=== PATIENT | female | born 1935 | race Caucasian/White ===

== ENCOUNTER 2016-12-11 21:11 | Observation (INO) | payer MEDICARE, BC ==
[2016-12-11] MEDS ORDERED: NS 0.9% 1000 ML* 1,000 ML IV ONE (22:16)
[2016-12-11 22:35] LABS: Hematocrit 37 % (35-47); Hemoglobin 12.3 g/dl (12.0-16.0); Mean Corpuscular HGB Conc 34 g/dl (31-36); Mean Corpuscular Hemoglobin 31 pg (27-31); Mean Corpuscular Volume 92 fL (80-97); Mean Platelet Volume 8 um3 (7.4-10.4); Red Cell Distribution Width 14 % (10.5-15); White Blood Count 9.4 10^3/ul (3.5-10.8)
[2016-12-11 22:38] LABS: Add Diff/Slide Review? Slide Review Added; Comments Flag Yes
--- NOTE | 2016-12-11 22:38 | ED ---
Mali Tejada Edward, scribed for Hai Bangura MD on 12/11/16 at 2211 . Altered Mental Status - HPI Summary HPI Summary: 81 y/o female presents to ED c/o confusion starting last night and has gotten progressively worse this morning and through the day. Pt has never had these sx before. Pt was also dx with UTI yesterday at [facility], started abx today. Associated sx: loss of memory, burning with urination (resolved today). PMHx UTIs. Most information was provided by the patient's son in law. - History Of Current Complaint Chief Complaint: EDAltMentalStatus Stated Complaint: DX UTI/CONFUSION,DIZZINESS Time Seen by Provider: 12/11/16 22:09 Hx Obtained From: Patient Onset/Duration: Gradually Timing: Lasting Hours - Starting last night Severity Initially: Mild Severity Currently: Moderate Character: Confusion - Allergies/Home Medications Allergies/Adverse Reactions: Allergies Allergy/AdvReac Type Severity Reaction Status Date / Time No Known Allergies Allergy Verified 12/17/14 13:16 Home Medications: Home Medications Esomeprazole Magnesium [Nexium 24Hr] 20 mg PO DAILY 12/12/16 [History Confirmed 12/12/16] Nitrofurantoin Monohyd Macro [Macrobid] 100 mg PO BID 12/12/16 [History Confirmed 12/12/16] PMH/Surg Hx/FS Hx/Imm Hx Previously Healthy: No Endocrine/Hematology History: Reports: Hx Thyroid Disease, Hx Anemia - X1 Denies: Hx Diabetes Cardiovascular History: Reports: Hx Hypercholesterolemia, Hx Hypertension Respiratory History: Reports: Hx Lung Cancer - With chemo, Hx Pneumonia, Other Respiratory Problems/Disorders - LUNG CA, LOWER LOBES OF BOTH LUNGS REMOVED Denies: Hx Asthma, Hx Chronic Obstructive Pulmonary Disease (COPD) GI History: Reports: Hx Gastroesophageal Reflux Disease Denies: Hx Gastrointestinal Bleed, Hx Hiatal Hernia, Hx Ulcer Musculoskeletal History: Reports: Hx Arthritis Sensory History: Reports: Hx Cataracts - L surgery, Hx Contacts or Glasses, Hx Eye Injury, Hx Vision Problem - Can't see out of R eye surgery causes retinal detatchment Opthamlomology History: Reports: Hx Cataracts - L surgery, Hx Contacts or Glasses, Hx Eye Injury, Hx Vision Problem - Can't see out of R eye surgery causes retinal detatchment Psychiatric History: Denies: Hx Anxiety, Hx Depression - Cancer History Cancer Type, Location and Year: Lung Cancer Hx Chemotherapy: Yes - Surgical History Surgery Procedure, Year, and Place: BILATERAL LOWER LUNG LOBECTOMY. KNEE - Immunization History Date of Tetanus Vaccine: unknown Infectious Disease History: No Infectious Disease History: Denies: Hx Human Immunodeficiency Virus (HIV), Traveled Outside the [place] in Last 30 Days - Family History Known Family History: Positive: Other - Mother - stroke - Social History Alcohol Use: Occasionally Alcohol Amount: smells of alcohol Substance Use Type: Reports: None Smoking Status (MU): Former Smoker Type: Cigarettes Review of Systems Constitutional: Negative Eyes: Negative ENT: Negative Cardiovascular: Negative Respiratory: Negative Gastrointestinal: Negative Positive: burning - resolved today Musculoskeletal: Negative Skin: Negative Neurological: Other - Confusion Psychological: Normal All Other Systems Reviewed And Are Negative: Yes Physical Exam Triage Information Reviewed: Yes Vital Signs On Initial Exam: Initial Vitals Temp Pulse Resp BP Pulse Ox 99.2 F 100 16 144/63 98 12/11/16 21:27 12/11/16 21:27 12/11/16 21:27 12/11/16 21:27 12/11/16 21:27 Vital Signs Reviewed: Yes Appearance: Positive: No Pain Distress - frail, Thin Skin: Positive: Warm Head/Face: Positive: Normal Head/Face Inspection Eyes: Positive: EOMI, DWAYNE ENT: Positive: Hearing grossly normal Neck: Positive: Supple, Nontender Respiratory/Lung Sounds: Positive: Clear to Auscultation Cardiovascular: Positive: RRR Abdomen Description: Positive: Nontender, Soft Bowel Sounds: Positive: Present Musculoskeletal: Positive: Strength/ROM Intact Neurological: Positive: Sensory/Motor Intact Diagnostics - Vital Signs Vital Signs Temp Pulse Resp BP Pulse Ox 12/11/16 21:27 99.2 F 100 16 144/63 98 - Laboratory Result Diagrams: 12/11/16 22:30 12/11/16 22:30 Lab Statement: Any lab studies that have been ordered have been reviewed, and results considered in the medical decision making process. Re-Evaluation - Re-Evaluation First Eval Comment: results d/w pt case d/w hospitalist Altered Mental Statu Course/Dx - Course Assessment/Plan: 81 y/o presents to ED with confusion starting last night and UTI dx at [facility] yesterday. - Diagnoses Discharge Diagnoses: Hyponatremia, UTI (urinary tract infection) - Provider Notifications Instructed by Provider To: Admit As Inpatient Discharge - Discharge Plan Condition: Fair Disposition: ADMITTED TO [facility] The documentation as recorded by the Mali cueva Edward accurately reflects the service I personally performed and the decisions made by me, Hai Bangura MD.
[2016-12-11 22:51] LABS: Albumin 3.4 g/dL (3.2-5.2); BUN/Creatinine Ratio 23.2 (8-20); Calcium 9.1 mg/dL (8.6-10.3); EGFR African American 69.2 (>60); EGFR Non-African American 53.8 (>60); Globulin 3.3 g/dL (2-4); Magnesium 1.6 mg/dL (1.9-2.7); Potassium 4.6 mmol/L (3.5-5.0); Total Bilirubin 0.4 mg/dL (0.2-1.0); Total Protein 6.7 g/dL (6.4-8.9)
[2016-12-11 22:52] LABS: Troponin I 0.01 ng/mL (<0.04)
[2016-12-11 23:37] LABS: Urine Bacteria 3+ (Absent); Urine Bilirubin Negative (Negative); Urine Glucose Negative (Negative); Urine Nitrite Negative (Negative)
[2016-12-12] MEDS ORDERED: Levofloxacin 500 MG IVPREMIX(* 500 MG/100 ML BAG IVPB ONE (00:03)
[2016-12-12] MEDS: NS 0.9% 1000 ML* 1,000 ML IV SCH ×2 (03:49→03:58)
[2016-12-12] MEDS ORDERED: Meropenem 1 GM PREMIX(*) 1 GM/50 ML BAG IV SCH (04:00)
[2016-12-12 04:43] LABS: BUN/Creatinine Ratio 25.8 (8-20); Calcium 6.8 mg/dL (8.6-10.3); EGFR African American 118.8 (>60); EGFR Non-African American 92.4 (>60); Potassium 3.4 mmol/L (3.5-5.0)
[2016-12-12] MEDS: Levothyroxine TAB* 50 MCG TAB PO SCH (06:31)
[2016-12-12] MEDS: Heparin VIAL(*) 5000 UNITS/ML VIAL (FIVE THOUSAND) SUBCUT SCH ×3 (06:31→21:59)
[2016-12-12 07:12] LABS: BUN/Creatinine Ratio 20.5 (8-20); Calcium 8.7 mg/dL (8.6-10.3); EGFR African American 91.2 (>60); EGFR Non-African American 70.9 (>60); Potassium 4.1 mmol/L (3.5-5.0)
--- NOTE | 2016-12-12 07:53 | HP ---
CC: Dr. Shanell Fung * HISTORY AND PHYSICAL: DATE OF ADMISSION: 12/12/16 CHIEF COMPLAINT: Confusion. HISTORY OF PRESENT ILLNESS: The patient is an 81-year-old woman who presented to [facility] with the chief complaint of altered mental status and increased confusion. This was told to me by the daughter as the patient is too confused to give me that information. The patient has had chronic low-dose antibiotics for recurrent UTIs, but apparently she ran out a little while ago, and she had her doctor call to a pharmacy, but there was confusion as to what that pharmacy was. Due to this, the patient was off her antibiotics for some time. She then developed what appeared to be a UTI with increased burning on urination and increased frequency of urination. Furthermore, the daughter noticed that day after day she became more and more confused and states her mother is usually sharp. She also has decreased p.o. intake and tried to keep it up with drinking water, but was not sure if she was. Her balance seemed off , too. She had no fevers or chills. The patient went to [facility] where she was thought to have a UTI and placed on an antibiotic. However, the next day, [facility] called and told her that the antibiotic needs to be changed because of the cultures that grew back. Unfortunately, the daughter does not know what that was. In the ED, the patient was evaluated and found to still have a UTI, but also to be significantly hyponatremic with a sodium of 117. PAST MEDICAL HISTORY: She has a past medical history for hyponatremia, as of now undiagnosed to the cause. Lung cancer with recurrence in 2009; was on chemo and radiation therapy, and also had a partial lobectomy. Hypothyroidism. PAST SURGICAL HISTORY: Significant for left lower lobe pneumonectomy as noted, and a total knee replacement. CURRENT MEDICATIONS: Her current medications are: 1. Celebrex 200 mg daily. 2. Macrobid 100 mg twice daily. 3. Metoprolol succinate 50 mg twice daily. 4. Lisinopril 20 mg daily. 5. Levothyroxine 50 mcg daily. 6. Nexium 20 mg daily. 7. Doxazosin 1 mg twice a day. 8. Lipitor 20 mg daily. ALLERGIES: She has no known drug allergies. SOCIAL HISTORY: No tobacco; quit 1992. No alcohol. No recreational drug use. She is a retired homemaker and part-time construction administrator. She is a with 5 children. Her daughter, Jeannette Francisco, is her healthcare proxy; her number is [phone]. REVIEW OF SYSTEMS: Unable to obtain review of systems from the patient because she is too confused. PHYSICAL EXAMINATION GENERAL: She is a pleasant woman lying in bed, in no acute distress. VITAL SIGNS: Temperature 99.2, heart rate 100 beats per minute, respiratory rate 16 breaths per minute, pulse oximetry 90% on room air, blood pressure 144/ 63. HEENT: Normocephalic and atraumatic. Pupils are equal, round and reactive. She's got dry mucous membranes with chapped lips. NECK: Supple. No JVD, bruits, palpable thyroid or lymphadenopathy. CHEST: Clear to auscultation and percussion bilaterally. CARDIOVASCULAR: S1, S2 appreciated. Regular rate and rhythm. ABDOMEN: Positive bowel sounds in all 4 quadrants. Soft, nontender, and nondistended. EXTREMITIES: No cyanosis, clubbing, or edema. +2 pulses bilaterally. NEUROLOGIC: Alert and oriented x1. Moves all extremities. SKIN: Dry skin. Poor skin turgor, and decreased axillary sweat. LABORATORY DATA: White count is 9.4, hemoglobin 12.3, hematocrit 37, platelets 166, and neutrophils are 92.5. Sodium is 117, potassium 4.6, chloride 87, CO2 of 23, BUN 23, creatinine 0.99, glucose 123. Urinalysis shows +3 leukocyte esterase, +3 WBCs, +2 RBCs, +3 bacteria. ASSESSMENT AND PLAN: 1. Hyponatremia. At this point, it is unclear as to the etiology, although she seems quite dry. So I suspect hypovolemia/hyponatremia. I will check urine sodium, urine osmolality, and serum osmolality. I will start her on normal saline at 125 mL and check her sodium every 6 hours. If I do not see an increase shortly, I will consider putting her on hypertonic saline. Because of the significantly low sodium, I will put her in the ICU to monitor. 2. Urinary tract infection. Her confusion could be from the hypernatremia or even from the urinary tract infection. Since we do not know the susceptibilities , and we know she got one antibiotic for now, I'll put her on meropenem 1 g IV q. 8, and monitor her until we get her all susceptibilities. 3. Hypothyroidism. Stable, continue Synthroid. 4. Fluids, electrolytes, and nutrition. Regular diet. 5. DVT prophylaxis. Heparin subcutaneous. 6. The patient is a full code. TIME SPENT: Over 75 minutes were spent on this H and P, more than 40 minutes of which were spent in direct [id number] contact with the patient in evaluation, physical exam, counseling, and coordination of care. [id number]/[facility] #: [id number] JUSTICE
[2016-12-12] MEDS ORDERED: NS 0.9% 1000 ML* 1,000 ML IV SCH (08:12)
--- NOTE | 2016-12-12 08:29 | PN ---
Subjective Date of Service: 12/12/16 Interval History: Patient offers no c/o. She states she needs to get dressed before she goes out into the light. Not hungry. Objective Active Medications: Atorvastatin Calcium (Lipitor*) 20 mg PO DAILY [facility] Celecoxib (Celebrex Cap*) 200 mg PO DAILY [facility] Doxazosin Mesylate (Cardura Tab*) 1 mg PO BID [facility] Heparin Sodium (Porcine) (Heparin Vial(*)) 5,000 units SUBCUT Q8HR [facility] Last Admin: 12/12/16 06:31 Dose: 5,000 units Meropenem (Merrem 1 Gm Premix(*)) 1 gm in 50 mls @ 100 mls/hr IV Q12H [facility] Last Admin: 12/12/16 03:49 Dose: 100 mls/hr Sodium Chloride (Ns 0.9% 1000 Ml*) 1,000 mls @ 40 mls/hr IV PER RATE [facility] Levothyroxine Sodium (Synthroid Tab*) 50 mcg PO 0600 [facility] Last Admin: 12/12/16 06:31 Dose: 50 mcg Lisinopril (Prinivil Tab*) 20 mg PO DAILY [facility] Metoprolol Succinate (Toprol Xl Tab*) 50 mg PO BID [facility] Omeprazole (Prilosec Cap*) 20 mg PO DAILY [facility] PRN Reason: Protocol Vital Signs 12/12/16 12/12/16 12/12/16 03:00 03:12 03:30 Temperature 98.9 F Pulse Rate 93 91 90 Respiratory 25 24 22 Rate Blood Pressure 163/71 167/72 151/77 (mmHg) O2 Sat by Pulse 96 98 98 Oximetry 12/12/16 12/12/16 12/12/16 03:47 04:00 04:15 Temperature Pulse Rate 91 88 88 Respiratory 23 23 22 Rate Blood Pressure 167/72 159/63 161/62 (mmHg) O2 Sat by Pulse 98 98 97 Oximetry 12/12/16 12/12/16 12/12/16 04:30 05:00 05:30 Temperature Pulse Rate 88 92 87 Respiratory 23 21 21 Rate Blood Pressure 164/70 153/73 162/78 (mmHg) O2 Sat by Pulse 98 97 98 Oximetry 12/12/16 12/12/16 12/12/16 06:00 06:30 07:00 Temperature Pulse Rate 88 109 90 Respiratory 21 26 19 Rate Blood Pressure 169/73 181/89 148/77 (mmHg) O2 Sat by Pulse 98 98 97 Oximetry 12/12/16 12/12/16 12/12/16 07:20 07:30 08:00 Temperature 97 F Pulse Rate 98 96 Respiratory 21 21 Rate Blood Pressure 182/96 (mmHg) O2 Sat by Pulse 99 97 Oximetry Oxygen Devices in Use Now: None Appearance: Alert, supine in bed. Neutral affect. Looks comfortable. Eyes: No Scleral Icterus Ears/Nose/Mouth/Throat: Clear Oropharnyx, Mucous Membranes Moist Neck: NL Appearance and Movements; NL JVP, No Thyroid Enlargement, Masses Respiratory: Symmetrical Chest Expansion and Respiratory Effort, Clear to Auscultation, Clear to Percussion Cardiovascular: NL Sounds; No Murmurs; No JVD, No Edema, - - rapid, forceful sounds, regular Extremities: No Edema, No Clubbing, Cyanosis, - Skin: No Rash or Ulcers, No Nodules or Sclerosis, - Neurological: NL Sensation - She knows her age, month, residence, name of the daughter she lives with, and that she is in the ICU. Result Diagrams: 12/11/16 22:30 12/12/16 06:45 Assess/Plan/Problems-Billing Assessment: - Patient Problems (1) UTI (urinary tract infection) Current Visit: Yes Status: Acute Comment: C&S pending. Continue meropenem. Possibly this is contibuting to her AMS. I will ask daughter how bonilla to her baseline she is, (2) Hyponatremia Current Visit: No Status: Acute Code(s): E87.1 - HYPO-OSMOLALITY AND HYPONATREMIA SNOMED Code(s): 36405646 Comment: Chronic problem, exacerbated by increased po intake with dx of UTI. Fluid restriction ordered. BMP 4 PM 12/12, 6 AM 12/13. (3) HTN (hypertension) Current Visit: No Status: Acute Code(s): I10 - ESSENTIAL (PRIMARY) HYPERTENSION SNOMED Code(s): 70647177 Comment: - Continue metoprolol, lisinopril, doxazosin. (4) Hypothyroidism Current Visit: No Status: Acute Code(s): E03.9 - HYPOTHYROIDISM, UNSPECIFIED SNOMED Code(s): 19452617 Comment: TSH add on requested. - Continue Levothyroxine.
--- NOTE | 2016-12-12 08:33 | PN ---
Progress Note - Progress Note Date of Service: 12/12/16 Note: Time spent on patient care 45 minutes.
[2016-12-12 09:08] LABS: Magnesium 1.2 mg/dL (1.9-2.7)
[2016-12-12] MEDS: celeCOXIB CAP* 200 MG PO SCH (09:23)
[2016-12-12] MEDS: Atorvastatin* 20 MG TAB PO SCH (09:23)
[2016-12-12] MEDS: Omeprazole CAP* 20 MG PO SCH (09:24)
[2016-12-12] MEDS: Doxazosin TAB* 2 MG PO SCH ×2 (09:24→21:59)
[2016-12-12] MEDS: Metoprolol Succinate XL TAB* 50 MG PO SCH ×2 (09:24→21:58)
[2016-12-12] MEDS: Lisinopril TAB* 10 MG PO SCH (09:24)
[2016-12-12] MEDS ORDERED: Magnesium Sulfate 1 GM IV* 1 GM/100 ML BAG IV ONE (10:00)
[2016-12-12] MEDS: cefTRIAXone* 1 GM in NS 0.9% 50 ML BAG IVPB SCH (11:51)
--- NOTE | 2016-12-12 14:47 | RAD ---
Indication: Confusion. CT of the brain was performed without IV contrast. Ventricular structures are midline. No midline shift is noted. The extra-axial spaces are unremarkable. There is no evidence of intracranial mass or hemorrhage. No other high or low density lesions are identified. Comparison is made with previous exam dated December 21, 2015. No changes noted. IMPRESSION: No intracranial mass or hemorrhage is noted.
[2016-12-12 16:56] LABS: BUN/Creatinine Ratio 17.1 (8-20); Calcium 8.4 mg/dL (8.6-10.3); EGFR African American 93.9 (>60)
[2016-12-13 06:08] LABS: BUN/Creatinine Ratio 20.7 (8-20); Calcium 8.2 mg/dL (8.6-10.3); EGFR African American 128.3 (>60); EGFR Non-African American 99.8 (>60); Potassium 3.9 mmol/L (3.5-5.0)
[2016-12-13] MEDS: Heparin VIAL(*) 5000 UNITS/ML VIAL (FIVE THOUSAND) SUBCUT SCH (06:19)
[2016-12-13] MEDS: Levothyroxine TAB* 50 MCG TAB PO SCH (06:19)
[2016-12-13] MEDS: Doxazosin TAB* 2 MG PO SCH (09:01)
[2016-12-13] MEDS: Metoprolol Succinate XL TAB* 50 MG PO SCH (09:01)
[2016-12-13] MEDS: Omeprazole CAP* 20 MG PO SCH (09:01)
[2016-12-13] MEDS: Atorvastatin* 20 MG TAB PO SCH (09:02)
[2016-12-13] MEDS: Lisinopril TAB* 10 MG PO SCH (09:02)
[2016-12-13] MEDS: celeCOXIB CAP* 200 MG PO SCH (09:21)
[2016-12-13] MEDS: cefTRIAXone* 1 GM in NS 0.9% 50 ML BAG IVPB SCH (10:38)
[2016-12-13 12:16] VITALS: BP 132/62
--- NOTE | 2016-12-14 00:34 | DS ---
DISCHARGE SUMMARY: DATE OF ADMISSION: 12/12/16 DATE OF DISCHARGE: 12/13/16 HOSPITAL COURSE: This 81-year-old woman was admitted with confusion. Details of the admission are in the admission note. The patient was treated at an urgent care center with nitrofurantoin for an antibiotic. Our pharmacist tracked down the results of the urine culture and found that her urine pathogen was resistant to nitrofurantoin, but sensitive to ceftriaxone. She was treated with intravenous ceftriaxone. Additionally she had been on broader spectrum antibiotic. She received some normal saline, which was eventually stopped. She was placed on fluid restriction. Her mental status gradually improved and by the day of discharge, she was completely back to her baseline. Her daughter was present at the bedside and confirmed that there was striking improvement that I noticed in her mental status. I spent considerable amount of time educating the patient and the daughter about fluid restriction. She will have a BMP in 2 days. On the day of discharge, her serum sodium was 124, the admission value was 117. I noticed this was a chronic problem as she had a sodium of 119 when admitted for a knee problem in December of 2015. She will take 4 days of cefuroxime at home to complete the treatment for UTI. FINAL DIAGNOSES: 1. Hyponatremia. 2. Urinary tract infection. 3. Hypertension. 4. Hypothyroidism. DISCHARGE MEDICATIONS: 1. Cefuroxime 500 mg b.i.d. for 4 days. 2. Lisinopril 20 mg daily. 3. Doxazosin 1 mg b.i.d. 4. Celecoxib 200 mg daily. 5. Levothyroxine 50 mcg daily. 6. Metoprolol succinate 50 mg b.i.d. 7. Atorvastatin 20 mg daily. 8. Esomeprazole 20 mg daily. 9. MiraLAX 1 scoop daily. [id number]/[facility] #: [id number] MTDD
== END 2016-12-13 12:15 | disposition home or self-care (01) ==
LOC: ED 21:11 → ICU 12-12 02:54 → INTOOBSV 12-12 02:54 → MED 12-12 08:23
PROVIDERS: ADMIT Internal Medicine; ATTEND Internal Medicine
DX: E87.1 Hypo-osmolality and hyponatremia (principal); N39.0 Urinary tract infection, site not specified; I10 Essential (primary) hypertension; E03.9 Hypothyroidism, unspecified; Z79.899 Other long term (current) drug therapy; Z85.118 Personal history of other malignant neoplasm of bronchus and lung; Z87.891 Personal history of nicotine dependence
CPT/HCPCS: 36415; 70450; 80048; 80053; 81003; 81015; 82607; 83605; 83735; 83930; 83935; 84300; 84443; 84484; 85025; 87086; 96365; 96372; 96375; 96376; 99285; A9270-GY; J0696; J1644; J1956; J2185

== ENCOUNTER 2017-01-07 11:39 | Emergency (ER) | payer MEDICARE, BC ==
[2017-01-07 12:01] VITALS: BP 127/58
--- NOTE | 2017-01-07 13:36 | UC ---
Skin Complaint HPI - HPI Summary HPI Summary: This is an 81 yo female with HTN, HLD, GERD and hypothyroidism who presented for evaluation of a skin tear that occurred last night. Her dog jumped up on her leg, tearing her skin. She cleaned the area with soap and water yesterday and again this am. She noticed it has continued to bleed intermittently. She reports a history of poor wound healing and associated infection. She denies recent fever or chills. - History of Current Complaint Chief Complaint: UCLaceration Stated Complaint: WOUND CHECK - Allergy/Home Medications Allergies/Adverse Reactions: Allergies Allergy/AdvReac Type Severity Reaction Status Date / Time No Known Allergies Allergy Verified 01/07/17 12:02 Review of Systems Constitutional: Negative Skin: Other - skin tear Eyes: Negative ENT: Negative Respiratory: Negative Cardiovascular: Negative Gastrointestinal: Negative Genitourinary: Negative Motor: Negative Neurovascular: Negative Musculoskeletal: Negative Neurological: Negative Psychological: Negative All Other Systems Reviewed And Are Negative: Yes PMH/Surg Hx/FS Hx/Imm Hx Previously Healthy: No - HTN, HLD, hypothyroidism, GERD - Surgical History Surgical History: Yes Surgery Procedure, Year, and Place: BILATERAL LOWER LUNG LOBECTOMY. KNEE - Family History Known Family History: Positive: Other - Mother - stroke - Social History Alcohol Use: None Alcohol Amount: smells of alcohol Substance Use Type: None Smoking Status (MU): Former Smoker Type: Cigarettes Household Exposure Type: Cigarettes - Immunization History Most Recent Influenza Vaccination: Fall 2014 Most Recent Tetanus Shot: 12/21/15 Most Recent Pneumonia Vaccination: Unknown but thinks is up to date Physical Exam Triage Information Reviewed: Yes Appearance: Well-Appearing - accompanied by her daughter Vital Signs: Initial Vital Signs Temp 98.2 F 01/07/17 11:57 Pulse 62 01/07/17 11:57 Resp 12 01/07/17 11:57 BP 127/58 01/07/17 11:57 Pulse Ox 99 01/07/17 11:57 Vital Signs Reviewed: Yes Respiratory: Positive: Chest non-tender, Lungs clear, Normal breath sounds. Negative: Crackles, Rhonchi, Stridor, Wheezing Cardiovascular: Positive: RRR, No Murmur Abdomen Description: Positive: Nontender Skin: Positive: Other - skin tear to the L anterior lower leg, ~5cm in length with some oozing from wound base, no surrounding erythema or purulent drainage. Course/Dx - Course Course Of Treatment: This is an 81 yo female with HTN, HLD, GERD and hypothyroidism who sustained a skin tear last night. Recommend application of Tegaderm and treat with Keflex prophylactically. Recommend close PCP follow up to ensure proper healing. - Differential Diagnoses - Skin Complaint Differential Diagnoses: Abscess, Cellulitis, Foreign Body - Diagnoses Provider Diagnoses: 1. Skin tear without associated infection Discharge - Discharge Plan Condition: Stable Disposition: HOME Prescriptions: Cephalexin CAP* [Keflex 500 CAP*] 500 mg PO TID #15 cap Patient Education Materials: Skin Tear (ED) Referrals: Shanell Fung MD [Primary Care Provider] - 5 Days Additional Instructions: Instructions: 1. Leave clear film in place until it comes off on its own 2. Take antibiotics as directed 3. Please monitor for signs of infection 4. Follow up with your PCP next week to re-evaluate
== END 2017-01-07 13:35 | disposition home or self-care (01) ==
LOC: UCEAST 11:39
DX: S80.812A Abrasion, left lower leg, initial encounter (principal); I10 Essential (primary) hypertension; E78.5 Hyperlipidemia, unspecified; E03.9 Hypothyroidism, unspecified; K21.9 Gastro-esophageal reflux disease without esophagitis; Z90.2 Acquired absence of lung [part of]; Z87.891 Personal history of nicotine dependence; X58.XXXA Exposure to other specified factors, initial encounter
CPT/HCPCS: 99212; G0463

== ENCOUNTER 2017-11-19 18:04 | Emergency (ER) | payer MEDICARE, BC ==
--- NOTE | 2017-11-19 20:11 | ED ---
Laceration/Wound HPI - HPI Summary HPI Summary: Complains of laceration to left forearm, avulsion to left estevez S/P mechanical fall today. Patient states she was carrying a pot and lost her balance and fell. Denies any other injuries or symptoms. No anti-coag. States she often takes asa and advil - History of Current Complaint Stated Complaint: FALL Time Seen by Provider: 11/19/17 18:15 Hx Obtained From: Patient, Family/Erp Implementation Consultant Aggravating: Nothing Alleviating: Nothing Onset Severity: Moderate Current Severity: Moderate Pain Intensity: 6 Pain Scale Used: 0-10 Numeric Associated Signs & Symptoms: Pain, Bruising - Additional Pertinent History Primary Care Physician: [id number] - Allergy/Home Medications Allergies/Adverse Reactions: Allergies Allergy/AdvReac Type Severity Reaction Status Date / Time latex Allergy Rash Verified 11/19/17 18:20 Home Medications: Home Medications Doxazosin TAB* [Cardura TAB*] 1 mg PO BID 11/19/17 [History Confirmed 11/19/17] Esomeprazole(NF) [NEXium(NF)] 20 mg PO DAILY 11/19/17 [History Confirmed ] Lisinopril TAB* [Prinivil TAB*] 10 mg PO DAILY 11/19/17 [History Confirmed 11/19] Polyethylene Glycol 3350* [Miralax*] 17 gm PO DAILY 11/19/17 [History Confirmed 11/19/17] Sulfamethox/Trimethoprim SS* [Bactrim SS 400/80 TAB*] 1 tab PO DAILY 11/19/17 [ History Confirmed 11/19/17] amLODIPine TAB* [Norvasc 5 mg TAB*] 2.5 mg PO DAILY 11/19/17 [History Confirmed 11/19/17] PMH/Surg Hx/FS Hx/Imm Hx Endocrine/Hematology History: Reports: Hx Thyroid Disease, Hx Anemia - X1 Denies: Hx Diabetes Cardiovascular History: Reports: Hx Hypercholesterolemia, Hx Hypertension Denies: Hx Pacemaker/ICD Respiratory History: Reports: Hx Lung Cancer - With chemo, Hx Pneumonia, Other Respiratory Problems/Disorders - LUNG CA, LOWER LOBES OF BOTH LUNGS REMOVED Denies: Hx Asthma, Hx Chronic Obstructive Pulmonary Disease (COPD) GI History: Reports: Hx Gastroesophageal Reflux Disease, Hx Ulcer Denies: Hx Gastrointestinal Bleed, Hx Hiatal Hernia History: Denies: Hx Renal Disease Musculoskeletal History: Reports: Hx Arthritis Sensory History: Reports: 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, Hx Eye Injury, Hx Legally Blind - RIGHT EYE, Hx Vision Problem - Can't see out of R eye surgery causes retinal detatchment Denies: Hx Contacts or Glasses, Hx Hearing Aid Opthamlomology History: Reports: 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 BILAT TOTAL KNEE REPLACEMENTS. TONSILS. REPAIR PROLAPSED BLADDER. BILATERAL CATARACTS. TORN RETINA IN BILATERAL EYES REPAIR-NO OP REPORT WILL CLEAR WITH ORBIT DX PER DR MOLINA - Immunization History Date of Tetanus Vaccine: unknown Infectious Disease History: No Infectious Disease History: Denies: Hx Clostridium Difficile, Hx Hepatitis, Hx Human Immunodeficiency Virus (HIV), Hx of Known/Suspected MRSA, Hx Shingles, Hx Tuberculosis, Hx Known/ Suspected VRE, Hx Known/Suspected VRSA, History Other Infectious Disease, Traveled Outside the [place] in Last 30 Days - Family History Known Family History: Positive: Other - Mother - stroke - Social History Alcohol Use: None Alcohol Amount: smells of alcohol Substance Use Type: Reports: None Smoking Status (MU): Former Smoker Type: Cigarettes Review of Systems Constitutional: Negative Eyes: Negative ENT: Negative Cardiovascular: Negative Respiratory: Negative Gastrointestinal: Negative Genitourinary: Negative Musculoskeletal: Negative Positive: Bruising, Other Neurological: Negative Psychological: Normal All Other Systems Reviewed And Are Negative: Yes Physical Exam - Summary Physical Exam Summary: Very superficial skin avulsion on left anterior estevez. Full thickness avulsion on left lateral and posterior forearm. Approximately 16 cm. flex and extend right upper extremity without indication of pain. Flexes and extends bilateral hips and knees and ankles without indication of pain. No pain with palpation of bilateral hips, abdomen, bilateral chest wall, back, neck, head, face. No indication of trauma to tongue teeth lips. P<MS intact on distal right UE and distal left LE. Flaxes and extends right UE without pain. Pt later c/o left side rib pain while lying in bed. Triage Information Reviewed: Yes Vital Signs On Initial Exam: Initial Vitals Pulse Pulse Ox 69 98 11/19/17 18:15 11/19/17 18:15 Vital Signs Reviewed: Yes Appearance: Positive: Well-Appearing Skin: Positive: Warm Head/Face: Positive: Normal Head/Face Inspection Eyes: Positive: Normal Neck: Positive: Supple Respiratory/Lung Sounds: Positive: Clear to Auscultation Cardiovascular: Positive: Normal Abdomen Description: Positive: Nontender Musculoskeletal: Positive: Normal Neurological: Positive: Normal Psychiatric: Positive: Normal AVPU Assessment: Alert - [place] Coma Scale Best Eye Response: 4 - Spontaneous Best Motor Response: 6 - Obeys Commands Best Verbal Response: 5 - Oriented Coma Scale Total: 15 Procedures - Laceration/Wound Repair 1 Location: upper extremity Description: Irregular Anesthesia: Local, 1.0% - 10cc Length, Depth and Shape: 16cm x 1cm x 4 cm degloving of left forearm Betadine Prep?: No - hibiclens Irrigated w/ Saline (ccs): 200 - saline and hibiclens Laceration/Wound Explored: clean, contaminated - dirt Debridement: minimal Suture Type: Prolene Number of Sutures: 13 - 3.0 prolene Layer Closure?: Yes - #12 3.0 vicryl Sterile Dressing Applied?: No 2 Location: lower extremity Description: Irregular Length, Depth and Shape: 8cm x .25cm skin avulsion wrapped in xerofrpom, gauze wrap and cobain Betadine Prep?: No - saline and hibiclens Irrigated w/ Saline (ccs): 60 - saline and hibiclens Laceration/Wound Explored: clean Closure: Single Layer Debridement: minimal Number of Sutures: 0 Layer Closure?: No Diagnostics - Vital Signs Vital Signs Temp Pulse Resp BP Pulse Ox 11/19/17 19:00 67 99 11/19/17 18:46 69 178/68 98 11/19/17 18:16 98.0 F 66 16 189/76 98 11/19/17 18:15 69 98 - Laboratory Lab Statement: Any lab studies that have been ordered have been reviewed, and results considered in the medical decision making process. - Radiology ribs Xray Interpretation: Positive (See Comments) - fx of 5th, 6th, 7th ribs on left side. pt indicated right side rib pain forearm Xray Interpretation: No Acute Changes Radiology Interpretation Completed By: Radiologist Laceration Repair Course/Dx - Course Course Of Treatment: Complains of laceration to left forearm, avulsion to left estevez S/P mechanical fall today. Patient states she was carrying a pot and lost her balance and fell. Denies any other injuries or symptoms. No anti-coag. States she often takes asa and advil. Very superficial skin avulsion on left anterior estevez. Full thickness degloving on left lateral and posterior forearm. Approximately 16 cm. Pt flexes and extends right upper extremity without indication of pain. Flexes and extends bilateral hips and knees and ankles without indication of pain. No pain with palpation of bilateral hips, abdomen, bilateral chest wall, back, neck, head, face. No indication of trauma to tongue teeth lips. PMS intact on distal right UE and distal left LE. Flaxes and extends right UE without pain. Imaging of forearm NEG. POS rib fractures 5th, 6th 7th ribs left side. Extensive lac cleaning and repair performed by me and Dr Thompson. Ancef 2gm. tetanus booster. pt refused pain meds. RX for augmentin. Follow up with Dr Moura wound care. Pt advised to breath deeply and use incentive spirometry - Clinical Impression Provider Diagnoses: Laceration, Skin avulsion, Fall, Ribs, multiple fractures Discharge - Sign-Out/Discharge Documenting (check all that apply): Discharge/Admit/Transfer - Discharge Plan Condition: Improved Disposition: HOME Prescriptions: Amoxicillin/Clavulanate TAB* [Augmentin TAB 875*] 875 mg PO BID #20 tab Patient Education Materials: Care For Your Stitches (ED), Laceration (ED), Rib Fracture (ED) Referrals: Eri Hankins MD [Primary Care Provider] - Cate Moura MD [Medical Doctor] - Additional Instructions: Remember to breath deeply to move air in your lungs. Tale antibiotics as directed. Follow up with wound care Dr Moura. Return to ED for any new or worsening symptoms. - Billing Disposition and Condition Condition: IMPROVED Disposition: Home
--- NOTE | 2017-11-19 20:25 | RAD ---
Indication: Left forearm injury. 2 views of left forearm demonstrates no fracture. No other bone or joint abnormality is noted. Degenerative changes of the radiocarpal joint is noted. IMPRESSION: No fracture of the left forearm is noted.
--- NOTE | 2017-11-19 20:27 | RAD ---
Indication: Bilateral rib pain. 5 views of the ribs are reviewed. PA view of the chest was also reviewed. There is diffuse osteopenia present. There is deformity of the sixth rib and fifth rib. There may also be a deformity of the seventh rib and these may represent fractures. Diffuse osteopenia is noted. No pneumothorax is noted. The right ribs demonstrate no fracture. No pneumothorax is noted. IMPRESSION: Deformity of the fifth, sixth and seventh rib likely due to fractures. No pneumothorax is noted.
[2017-11-19] MEDS ORDERED: Lidocaine 1%* 5 ML VIAL ONE (20:47)
[2017-11-19] MEDS ORDERED: ceFAZolin 2 GM PREMIX (*) 2 GM/50 ML BAG IVPB ONE (21:12)
[2017-11-19] MEDS ORDERED: Ciproflox/Dexameth OTIC.SUSP* 7.5 ML BTL RIGHT EAR ONE (21:36)
[2017-11-19] MEDS ORDERED: Tetan/Diph/Pertus SYR(Tdap)* 0.5 ML SYR(BOOSTRIX) use SYR IM ONE (22:06)
--- NOTE | 2017-11-19 22:07 | ED ---
Progress - Progress Note Progress Note: I supervised the care of the physician client account assistant and I performed history and physical on this patient. I performed a significant portion of the laceration repair. History: Fall in her home while carrying a planter. No anticoagulants. Takes bupropion, Aleve Physical exam: 16 cm degloving laceration involving the proximal left forearm contaminated with dirt. Large skin tear/avulsion to the left lower extremity Plan: Wounds were cleaned extensively prior to repair. Antibiotics were given. Tetanus provided. Continue antibiotics. Follow-up in the wound care clinic. Procedure: I performed the majority of the closure of the wound as documented by the physician client account assistant. Discharge - Sign-Out/Discharge Documenting (check all that apply): Discharge/Admit/Transfer - Discharge Plan Condition: Improved Disposition: HOME Referrals: Eri Hankins MD [Primary Care Provider] - - Billing Disposition and Condition Condition: IMPROVED Disposition: Home
[2017-11-19 22:36] VITALS: BP 174/91
== END 2017-11-19 22:35 | disposition home or self-care (01) ==
LOC: ED 18:04
DX: S51.812A Laceration without foreign body of left forearm, initial encounter (principal); S81.812A Laceration without foreign body, left lower leg, initial encounter; S22.42XA Multiple fractures of ribs, left side, initial encounter for closed fracture; W19.XXXA Unspecified fall, initial encounter; Y93.E9 Activity, other interior property and clothing maintenance; Y92.9 Unspecified place or not applicable; I10 Essential (primary) hypertension; Z23 Encounter for immunization; Z87.891 Personal history of nicotine dependence
CPT/HCPCS: 71111; 90471; 90715; 96374; 99283; J0690

== ENCOUNTER 2017-12-01 14:37 | Emergency (ER) | payer MEDICARE, BC, OTHER ==
--- OUTSIDE RECORDS SUMMARY | 2017-12-01 14:46 | XMS REPORT ---
:1935 External Reference #:[id number] Author Organization [employer] Address [address] [place] [address] [place] [address] Phone [phone] Care Team Providers Name Role Phone Eri Hankins MD Primary Care Physician Unavailable Payers Type Date Identification Numbers Payment Provider Subscriber Medicare Primary Policy Number: [id number] Medicare Belia Francisco PayID: [id number] [address] [place] [address] Medigap Part B Policy Number: [id number] [facility] Belia Francisco PayID: [id number] [address] [place] [address] Problems Date Description Provider Status Onset: 05/02/2016 Disturbance in sleep behavior Tsering Blount MD Active Onset: 05/02/2016 Hypoxemia Tsering Blount MD Active Family History Date Family Member(s) Problem(s) Comments General Heart Disease General Hypertension General Stroke General Cancer Cousin and Aunt General Diabetes 2nd Cousin Father Lung Cancer Father Cancer Mother Hypertension Mother Heart Disease Mother Stroke Social History Type Date Description Comments Marital Status Lives With Daughter Occupation retired ETOH Use Denies alcohol use Smoking Patient is a former smoker Recreational Drug Use Denies Drug Use Daily Caffeine Consumes on average 3 cups of regular coffee per day Exercise Type/Frequency Does not exercise Allergies, Adverse Reactions, Alerts Date Description Reaction Status Severity Comments 12/29/2015 NKDA active 05/05/2016 Latex active Medications Medication Date Status Form Strength Qnty SIG Indications Ordering Provider Oxygen 06/07/ Active Misc 1units please use R09.02 Tsering 2017 o2 at MD Jose Alejandro 2l/min at night and with exertion Lisinopril 00/00/ Active Tablets 10mg 1 by mouth Unknown 0000 every day Doxazosin 00/00/ Active Tablets 1mg take two Unknown Mesylate 0000 tablets by mouth at bedtime Multivitamin & 0000/ Active Liquid Unknown Mineral 0000 Synthroid 00/00/ Active Tablets 50mcg 1 by mouth Unknown 0000 every day Toprol XL 00/00/ Active Tablets ER 50mg 1 by mouth Unknown 0000 24HR every day Miralax 0000/ Active Powder 3350NF 17 gm Unknown 0000 every day mixed w/ 8 oz water/juic e Lipitor / Active Tablets 20mg one tab by Unknown 0000 mouth every night at bedtime Calcium 600 00// Active Tablets 600mg 1 by mouth Unknown 0000 every day Nexium 24HR 00/ Active Tablets DR 20mg 1 by mouth Unknown 0000 every day Aspirin Adult / Active Tablets DR 81mg 1 by mouth Unknown Low Dose 0000 every day Melatonin 0000/ Active Tablets ER 3mg 2 tabs po Unknown 0000 qhs Amlodipine / Active Tablets 2.5mg 1 by mouth Unknown Besylate 0000 every day Oxygen 06/02/ Hx Misc 1units please use Tsering 2017 - o2 at MD Jose Alejandro 06/07/ 2l/min at 2017 night Keflex / Hx Capsules 500mg one tablet Unknown 0000 - three 01/25/ times a 2015 day x 5 days Vital Signs Date Vital Result Comment 11/28/2017 Heart Rate 72 /min Respiratory Rate 18 /min Body Temperature 97.4 F 11/23/2017 Height 60 inches 5'0" Weight 127.00 lb Heart Rate 68 /min BP Systolic 132 mmHg BP Diastolic 64 mmHg Respiratory Rate 16 /min Body Temperature 97.1 F BMI (Body Mass Index) 24.8 kg/m2 06/12/2017 Height 60 inches 5'0" Weight 128.00 lb Heart Rate 70 /min BP Systolic Sitting 116 mmHg BP Diastolic Sitting 68 mmHg Respiratory Rate 17 /min BMI (Body Mass Index) 25.0 kg/m2 06/07/2017 Height 60 inches 5'0" Weight 128.00 lb Heart Rate 76 /min BP Systolic Sitting 112 mmHg BP Diastolic Sitting 58 mmHg Respiratory Rate 14 /min O2 % BldC Oximetry 99 % BMI (Body Mass Index) 25.0 kg/m2 07/18/2016 Height 60 inches 5'0" Weight 135.00 lb Heart Rate 66 /min BP Systolic 124 mmHg BP Diastolic 60 mmHg Respiratory Rate 14 /min O2 % BldC Oximetry 95 % BMI (Body Mass Index) 26.4 kg/m2 05/19/2016 Height 60 inches 5'0" Weight 135.00 lb Pain Level 1 BMI (Body Mass Index) 26.4 kg/m2 05/05/2016 Height 60 inches 5'0" Weight 135.00 lb Heart Rate 62 /min BP Systolic 147 mmHg BP Diastolic 74 mmHg BMI (Body Mass Index) 26.4 kg/m2 05/02/2016 Height 60 inches 5'0" Weight 130.00 lb Heart Rate 63 /min BP Systolic 126 mmHg BP Diastolic 70 mmHg Respiratory Rate 16 /min O2 % BldC Oximetry 97 % BMI (Body Mass Index) 25.4 kg/m2 Neck Circumference in inches 15 2016 Pain Level 0 12/29/2015 Body Temperature 96.9 F 12/29/2015 Height 60.5 inches 5'0.50" Weight 134.00 lb BP Systolic 140 mmHg BP Diastolic 80 mmHg Pain Level 0 BMI (Body Mass Index) 25.7 kg/m2 Results Test Date Test Result H/L Range Note Order 06/07/2017 6 Minute Walk <pending> CBC Auto Diff 02/08/2017 White Blood Count 5.6 10^3/uL 3.5-10.8 Red Blood Count 3.69 10^6/uL Low 4.0-5.4 Hemoglobin 11.4 g/dL Low 12.0-16.0 Hematocrit 34 % Low 35-47 Mean Corpuscular Volume 91 fL 80-97 Mean Corpuscular Hemoglobin 31 pg 27-31 Mean Corpuscular HGB Conc 34 g/dL 31-36 Red Cell Distribution Width 14 % 10.5-15 Platelet Count 217 10^3/uL 150-450 Mean Platelet Volume 7 um3 Low 7.4-10.4 Abs Neutrophils 4.1 10^3/uL 1.5-7.7 Abs Lymphocytes 0.9 10^3/uL Low 1.0-4.8 Abs Monocytes 0.4 10^3/uL 0-0.8 Abs Eosinophils 0.1 10^3/uL 0-0.6 Abs Basophils 0 10^3/uL 0-0.2 Abs Nucleated RBC 0 10^3/uL Granulocyte % 73.1 % 38-83 Lymphocyte % 16.1 % Low 25-47 Monocyte % 8.0 % 1-9 Eosinophil % 2.2 % 0-6 Basophil % 0.6 % 0-2 Nucleated Red Blood Cells % 0 Laboratory test finding 05/31/2016 Apligraf SEE RESULTS BELO <SEE NOTE> 1, 2 Laboratory test finding 05/03/2016 Apligraf SEE RESULTS BELO <SEE NOTE> 1, 3 Laboratory test finding 04/19/2016 Apligraf SEE RESULTS BELO <SEE NOTE> 1, 4 Laboratory test finding 04/05/2016 Apligraf SEE RESULTS BELO <SEE NOTE> 1, 5 1 FU 2 SEE RESULTS BELOW [id number] APLIGRAF TRANSFUSED 06/01/16 1158 3 SEE RESULTS BELOW [id number] APLIGRAF TRANSFUSED 05/04/16 1056 4 SEE RESULTS BELOW [id number] APLIGRAF TRANSFUSED 04/20/16 1010 5 SEE RESULTS BELOW [id number] APLIGRAF TRANSFUSED 04/06/16 1059 Procedures Date CPT Code Description Status 06/07/2017 95708 Pulmonary Stress Testing, Inc Measurement Heart Rate, Completed Oximetry 05/22/2017 04098 ECHO Transthorasic Realtime 2D W Doppler & Color Flow Completed Hosp 05/07/2017 80959 EEG Recording Awake & Asleep Completed 06/01/2016 47600 Application Skin Substitute Graft Trunk,Arms Lets Up To Completed 100 SQ CM 05/25/2016 94309 Removal Devitalization Tissue Wound Less Than Equal 20 Completed Square CM 05/05/2016 82090 Closed TX Metacarpal FX Single W/O Manipulation, Ea Completed Bone 05/04/2016 92873 Application Skin Substitute Graft Trunk,Arms Lets Up To Completed 100 SQ CM 04/27/2016 00076 Removal Devitalization Tissue Wound Less Than Equal 20 Completed Square CM 04/20/2016 82716 Removal Devitalization Tissue Wound Less Than Equal 20 Completed Square CM 04/20/2016 54223 Application Skin Substitute Graft Trunk,Arms Lets Up To Completed 100 SQ CM 04/11/2016 15083 Removal Devitalization Tissue Wound Less Than Equal 20 Completed Square CM 04/11/2016 05324 Debridement Skin,& sq Tissue Completed 04/06/2016 84422 Application Skin Substitute Graft Trunk,Arms Lets Up To Completed 100 SQ CM 04/06/2016 27781 Add'l 25 SQ CM Application Skin Graft Completed 04/06/2016 28372 Removal Devitalization Tissue Wound Less Than Equal 20 Completed Square CM 03/23/2016 56112 Removal Devitalized Tissue Wound Greater Than 20 Square Completed CM 03/23/2016 04004 Removal Devitalization Tissue Wound Less Than Equal 20 Completed Square CM 03/15/2016 86966 Removal Devitalized Tissue Wound Greater Than 20 Square Completed CM 03/15/2016 32800 Removal Devitalization Tissue Wound Less Than Equal 20 Completed Square CM 03/08/2016 64336 Removal Devitalized Tissue Wound Greater Than 20 Square Completed CM 03/08/2016 58726 Removal Devitalization Tissue Wound Less Than Equal 20 Completed Square CM 03/01/2016 46164 Removal Devitalized Tissue Wound Greater Than 20 Square Completed CM 03/01/2016 83931 Removal Devitalization Tissue Wound Less Than Equal 20 Completed Square CM 12/22/2015 04210 Closed TX Articular FX,Invol Metacarpophalangeal Or Completed Interphal JT 11/15/2015 87714 Diffusing Capacity Completed 11/15/2015 91962 Pulmonary Function><Bronchodil Completed 10/05/2015 70077 ECHO Transthoracic, Real-Time 2D With Doppler And Color Completed Flow Encounters Type Date Location Provider CPT E/M Dx Office Visit 11/23/2017 [facility] Kehinde Sanders, 63016 S41.112A 3:30p Of [facility] CAMARILLO S80.812A W19.xxxA Office Visit 06/12/2017 10:00a [facility] Lucio Vela, 96497 I65.23 Services Of Monica Hanna J44.9 Z86.73 Z79.82 Office Visit 06/07/2017 11:30a [facility] [place] [address] R09.02 Services Of Monica R09.02 Office Visit 12/13/2016 4:02p [facility], Fadi Lamb, 51245 E87.1 Hospitalists Cyndi N39.0 R31.9 R41.82 Office Visit 12/12/2016 4:01p [facility],shawna Cortés M.D. 03632 E87.1 Hospitalists N39.0 R31.9 R41.82 Office Visit 07/18/2016 2:30p [facility] [place] [address] R09.02 Services Of [facility] Office Visit 06/20/2016 2:59p [facility] Lucio Connors, 48182 I87.311 [facility] L97.811 Office Visit 06/13/2016 2:44p [facility] Lucio Connors, 14776 I87.311 AT [facility] L97.811 Office Visit 06/06/2016 9:54a [facility] Lucio Connors, 13867 I87.311 [facility] L97.811 Office Visit 05/02/2016 2:00p [facility] [place] [address] G47.9 Services [facility] R09.02 Office Visit 12/29/2015 2:15p [facility] M.D. 69826 S81.011D C.M.AEliezer Z48.02 Office Visit 12/23/2015 10:24a [facility], Mayuri Yañez, 96692 E87.1 Hospitalists Cyndi S61.209A S63.279A S81.011A Office Visit 12/22/2015 10:24a [facility], Mayuri Yañez, 57263 E87.1 Hospitalists MTin S61.209A S63.279A S81.011A Office Visit 12/22/2015 7:00a [facility], 86241 S63.282A C.MAbby Hanna S62.610A S62.611A S81.011A W10.1xxA Office Visit 12/21/2015 10:23a [facility] Leidy 58844 S81.011A Assoc,shawna NICHOLE M.D. Hospitalists S63.279A S61.209A E87.1 Plan of Care Future Appointment(s):12/05/2017 2:00 pm - Kehinde Sanders MD at [facility]12/04/2017 1:30 pm - Tsering Blount MD at [facility]11/28/2017 - Kehinde Sanders, MDS41.112A Laceration w/o foreign body of left upper arm, init [id number] Abrasion, left lower leg, initial encounterFollow up:7-10 days Continue present wound care Call with any problems or concerns
--- OUTSIDE RECORDS SUMMARY | 2017-12-01 14:46 | XMS REPORT ---
:1935 External Reference #:[id number] Author Organization [employer] Address [address] [place] [address] [place] [address] Phone [phone] Care Team Providers Name Role Phone Eri Hankins MD Primary Care Physician Unavailable Payers Type Date Identification Numbers Payment Provider Subscriber Medicare Primary Policy Number: [id number] Medicare Belia Francisco PayID: [id number] [address] [place] [address] Medigap Part B Policy Number: [id number] [facility] Belia Francisco PayID: [id number] [address] [place] [address] Problems Date Description Provider Status Onset: 05/02/2016 [...] days Vital Signs Date Vital Result Comment 11/23/2017 Height 60 inches 5'0" Weight 127.00 [...] 5 1 FU 2 SEE RESULTS BELOW [id number] APLIGRAF TRANSFUSED 06/01/16 1158 3 SEE RESULTS BELOW [id number] APLIGRAF TRANSFUSED 05/04/16 1056 4 SEE RESULTS BELOW [id number] APLIGRAF TRANSFUSED 04/20/16 1010 5 SEE RESULTS BELOW [id number] APLIGRAF TRANSFUSED 04/06/16 1059 Procedures Date CPT Code Description Status 06/07/2017 75502 Pulmonary Stress [facility] Measurement Heart Rate, Completed Oximetry 05/22/2017 03216 ECHO Transthorasic Realtime 2D W Doppler & Color Flow Completed Hosp 05/07/2017 71347 EEG Recording Awake & Asleep Completed 06/01/2016 16103 Application Skin Substitute Graft Trunk,Arms Lets Up To Completed 100 SQ CM 05/25/2016 79167 Removal Devitalization Tissue Wound Less Than Equal 20 Completed Square CM 05/05/2016 17357 Closed TX Metacarpal FX Single W/O Manipulation, Ea Completed Bone 05/04/2016 34687 Application Skin Substitute Graft Trunk,Arms Lets Up To Completed 100 SQ CM 04/27/2016 29107 Removal Devitalization Tissue Wound Less Than Equal 20 Completed Square CM 04/20/2016 28253 Removal Devitalization Tissue Wound Less Than Equal 20 Completed Square CM 04/20/2016 32851 Application Skin Substitute Graft Trunk,Arms Lets Up To Completed 100 SQ CM 04/11/2016 60137 Removal Devitalization Tissue Wound Less Than Equal 20 Completed Square CM 04/11/2016 62351 Debridement Skin,& sq Tissue Completed 04/06/2016 35046 Application Skin Substitute Graft Trunk,Arms Lets Up To Completed 100 SQ CM 04/06/2016 49254 Add'l 25 SQ CM Application Skin Graft Completed 04/06/2016 88134 Removal Devitalization Tissue Wound Less Than Equal 20 Completed Square CM 03/23/2016 78334 Removal Devitalized Tissue Wound Greater Than 20 Square Completed CM 03/23/2016 17102 Removal Devitalization Tissue Wound Less Than Equal 20 Completed Square CM 03/15/2016 24499 Removal Devitalized Tissue Wound Greater Than 20 Square Completed CM 03/15/2016 54539 Removal Devitalization Tissue Wound Less Than Equal 20 Completed Square CM 03/08/2016 85273 Removal Devitalized Tissue Wound Greater Than 20 Square Completed CM 03/08/2016 36603 Removal Devitalization Tissue Wound Less Than Equal 20 Completed Square CM 03/01/2016 71735 Removal Devitalized Tissue Wound Greater Than 20 Square Completed CM 03/01/2016 27010 Removal Devitalization Tissue Wound Less Than Equal 20 Completed Square CM 12/22/2015 87214 Closed TX Articular FX,Invol Metacarpophalangeal Or Completed Interphal JT 11/15/2015 63452 Diffusing Capacity Completed 11/15/2015 69160 Pulmonary Function><Bronchodil Completed 10/05/2015 48347 ECHO Transthoracic, Real-Time 2D With Doppler And Color Completed Flow Encounters Type Date Location Provider CPT E/M Dx Office Visit 06/12/2017 [facility] Lucio Vela, 63258 I65.23 10:00a [facility] Cyndi J44.9 Z86.73 Z79.82 Office Visit 06/07/2017 11:30a [facility] [address] R09.02 [facility] R09.02 Office Visit 12/13/2016 4:02p [facility], Fadi Lamb, 54603 E87.1 Hospitalists Cyndi N39.0 R31.9 R41.82 Office Visit 12/12/2016 4:01p [facility]oc,shawna Cortés M.D. 92696 E87.1 Hospitalists N39.0 R31.9 R41.82 Office Visit 07/18/2016 2:30p [facility] [address] R09.02 [facility] Office Visit 06/20/2016 2:59p [facility] Lucio Connors, [address]64 I87.311 [facility] Cyndi L97.811 Office Visit 06/13/2016 2:44p [facility] Lucio MckeeEliezer Winklerer, [address] I87.311 AT [facility] MTin L97.811 Office Visit 06/06/2016 9:54a [facility] Lucio MckeeEliezer Dory, [address]268 I87.311 AT [facility] MTin L97.811 Office Visit 05/02/2016 2:00p [place] [address] G47.9 [facility] R09.02 Office Visit 12/29/2015 2:15p [facility] M.D. 90886 S81.011D C.MEliezerAEliezer Z48.02 Office Visit 12/23/2015 10:24a [facility],shawna Yañez, 11696 E87.1 Hospitalists Cyndi S61.209A S63.279A S81.011A Office Visit 12/22/2015 10:24a [facility],shawna Yañez, 74086 E87.1 Hospitalists Cyndi S61.209A S63.279A S81.011A Office Visit 12/22/2015 7:00a [facility], 33499 S63.282A C.MAbby Hanna S62.610A S62.611A S81.011A W10.1xxA Office Visit 12/21/2015 [facility] [address]43 S81.011A Assoc,shawna NICHOLE M.D. Hospitalists S63.279A S61.209A E87.1 Plan of Care Future Appointment(s):11/28/2017 1:45 pm - Kehinde Sanders MD at [facility]12/04/2017 1:30 pm - Tsering Blount MD at [facility]11/23/2017 - Kehinde Sanders, MDS41.112A Laceration w/o foreign body of left upper arm, init fseqccY36.812A Abrasion, left lower leg, initial encounterFollow up:Next Sunday11/28/17 for follow up appointment Take dressings off both left arm and left leg everyother day and wash areas with soap and water. Apply antibiotic ointment to both wounds and cover with gauze and wrap every other day after you wash. Keep left leg elevated as much as possible Continue and complete the oral antibiotics that you were given.
[2017-12-01 15:09] VITALS: BP 123/71
--- NOTE | 2017-12-01 15:56 | UC ---
Laceration HPI - HPI Summary HPI Summary: laceration to left lower arm about 14 cm 2 weeks ago--seen md and had sutures removed then fell again today and the wound completely reopened - History Of Current Complaint Chief Complaint: UCUpperExtremity Stated Complaint: LEFT ARM INJURY Time Seen by Provider: 12/01/17 15:44 Hx Obtained From: Patient Laceration Location: Arm - left forearm Mechanism Of Injury: Blunt Trauma Onset/Duration: Lasting Weeks - 2, Worse Since - today Severity: Moderate Pain Intensity: 0 Aggravating Factors: Nothing - Allergies/Home Medications Allergies/Adverse Reactions: Allergies Allergy/AdvReac Type Severity Reaction Status Date / Time latex Allergy Rash Verified 11/19/17 18:20 Home Medications: Home Medications Ibuprofen TAB* [Advil TAB*] 400 mg PO Q6HR 12/01/17 [History Confirmed 12/01/17] Naproxen Sodium [Aleve] 440 mg PO Q12HR 12/01/17 [History Confirmed 12/01/17] PMH/Surg Hx/FS Hx/Imm Hx Previously Healthy: No Endocrine History: Hypothyroidism, Dyslipidemia Cardiovascular History: Hypertension GI/ History: Gastroesophageal Reflux - Surgical History Surgical History: Yes Surgery Procedure, Year, and Place: BILATERAL LOWER LUNG LOBECTOMY. BILAT TOTAL KNEE REPLACEMENTS. TONSILS. REPAIR PROLAPSED BLADDER. BILATERAL CATARACTS. TORN RETINA IN BILATERAL EYES REPAIR-NO OP REPORT WILL CLEAR WITH ORBIT DX PER DR MOLINA - Family History Known Family History: Positive: Other - Mother - stroke - Social History Occupation: Retired Lives: With Family Alcohol Use: None Alcohol Amount: smells of alcohol Substance Use Type: None Smoking Status (MU): Former Smoker Type: Cigarettes Household Exposure Type: Cigarettes - Immunization History Most Recent Influenza Vaccination: Fall 2014 Most Recent Tetanus Shot: 12/21/15 Most Recent Pneumonia Vaccination: Unknown but thinks is up to date Review of Systems Constitutional: Negative Skin: Other - reopened wound on left forearm Eyes: Negative ENT: Negative Respiratory: Negative Cardiovascular: Negative Gastrointestinal: Negative Genitourinary: Negative Motor: Negative Neurovascular: Negative Musculoskeletal: Negative Neurological: Negative Psychological: Negative Is Patient Immunocompromised?: No All Other Systems Reviewed And Are Negative: Yes Physical Exam Triage Information Reviewed: Yes Appearance: Well-Appearing, No Pain Distress, Well-Nourished Vital Signs: Initial Vital Signs Temp 98.1 F 12/01/17 15:05 Pulse 79 12/01/17 15:05 Resp 18 12/01/17 15:05 BP 123/71 12/01/17 15:05 Pulse Ox 96 12/01/17 15:05 Vital Signs Reviewed: Yes Eye Exam: Normal Eyes: Positive: Conjunctiva Clear ENT Exam: Normal ENT: Positive: Normal ENT inspection, Hearing grossly normal. Negative: Trismus , Muffled voice, Hoarse voice, Dental tenderness, Sinus tenderness Dental Exam: Normal Neck exam: Normal Neck: Positive: Supple, Nontender, No Lymphadenopathy Respiratory Exam: Normal Respiratory: Positive: Chest non-tender, No respiratory distress, No accessory muscle use Cardiovascular Exam: Normal Cardiovascular: Positive: RRR, Pulses Normal, Brisk Capillary Refill Abdominal Exam: Normal Musculoskeletal Exam: Normal Musculoskeletal: Positive: Strength Intact, ROM Intact, No Edema Neurological Exam: Normal Neurological: Positive: Alert, Muscle Tone Normal Psychological Exam: Normal Psychological: Positive: Normal Response To Family, Age Appropriate Behavior Skin Exam: Other Skin: Positive: Other - 14 cm irregular linarar wound left forarm Laceration Repair - Laceration Repair 1 Description: Irregular Laceration Size After Repair: Length (cm) - 14, Width (mm) - 8, Depth (mm) - 5 Modified For Repair: No Cleansing Completed Via Routine Prep: Yes Irrigation With Pressure Irrigation Device: Yes Closure Material: SteriStrips - and bulky dressing Laceration Course/Dx - Course/Dx Course Of Treatment: follow with Dr. Sadners as planned in 3 days---no dressing changes necessary in the next 3 days - Differential Dx - Laceration/Wound Provider Diagnoses: 14 cm wound left forearm Discharge - Sign-Out/Discharge Documenting (check all that apply): Patient Departure - Discharge Plan Condition: Stable Disposition: HOME Patient Education Materials: Laceration (ED), Steristrips (ED) Referrals: Eri Hankins MD [Primary Care Provider] - Kehinde Sanders MD [Medical Doctor] - 12/05/17 (as planned) - Billing Disposition and Condition Condition: STABLE Disposition: Home
[2017-12-01] MEDS ORDERED: Benzoin Compound STICK TOPICAL ONE (15:58)
== END 2017-12-01 16:44 | disposition home or self-care (01) ==
LOC: UCEAST 14:37
DX: S51.812A Laceration without foreign body of left forearm, initial encounter (principal); W19.XXXA Unspecified fall, initial encounter; Y93.9 Activity, unspecified; Y92.9 Unspecified place or not applicable; E03.9 Hypothyroidism, unspecified; E78.5 Hyperlipidemia, unspecified; I10 Essential (primary) hypertension; K21.9 Gastro-esophageal reflux disease without esophagitis; Z96.653 Presence of artificial knee joint, bilateral; Z91.040 Latex allergy status; Z82.3 Family history of stroke; Z87.891 Personal history of nicotine dependence
CPT/HCPCS: 99212; G0463

== ENCOUNTER 2017-12-06 14:03 | Emergency (ER) | payer MEDICARE, BC, OTHER ==
--- OUTSIDE RECORDS SUMMARY | 2017-12-06 14:13 | XMS REPORT ---
:1935 External Reference #:[id number] Author Organization [employer] Address [address] [place] [address] [place] [address] Phone [phone] Care Team Providers Name Role Phone Eri Hankins MD Primary Care Physician Unavailable Payers Type Date Identification Numbers Payment Provider Subscriber Medicare Primary Policy Number: [id number] Medicare Belia Francisco PayID: [id number] [address] [place] [address] Medigap Part B Policy Number: [id number] [facility] Belia Francisco PayID: [id number] [address] [place] [address] Problems Date Description Provider Status Onset: 05/02/2016 [...] Alerts Date Description Reaction Status Severity Comments 05/05/2016 Latex active 12/04/2017 Adhesive active 12/29/2015 NKDA inactive Medications Medication Date Status Form Strength Qnty SIG Indications Ordering Provider Oxygen 06/07/ Active Misc 1unit please use o2 R09.02 Tsering 2018 s at 2l/min at [facility], night and with exertion, rob to portable tanks from portable concentrator Lisinopril 00/00/ Active Tablets 10mg 1 by mouth Unknown 0000 every day Doxazosin 00/00/ Active Tablets 1mg take two Unknown Mesylate 0000 tablets by mouth at bedtime Multivitamin & 00/00/ Active Liquid Unknown Mineral 0000 Synthroid 00/00/ Active Tablets 50mcg 1 by mouth Unknown 0000 every day Toprol XL 00/00/ Active Tablets ER 50mg 1 by mouth Unknown 0000 24HR every day Miralax 0000/ Active Powder 3350NF 17 gm every Unknown 0000 day mixed w/ 8 oz water/juice Lipitor 00/ Active Tablets 20mg one tab by Unknown 0000 mouth every night at bedtime Calcium 600 00/00/ Active Tablets 600mg 1 by mouth Unknown 0000 every day Nexium 24HR 0000/ Active Tablets DR 20mg 1 by mouth Unknown 0000 every day Aspirin Adult 0000/ Active Tablets DR 81mg 1 by mouth Unknown Low Dose 0000 every day Melatonin 00/ Active Tablets ER 3mg 2 tabs po qhs Unknown 0000 Amlodipine 0000/ Active Tablets 2.5mg 1 by mouth Unknown Besylate 0000 every day Oxygen 06/02/ Hx Misc 1unit please use o2 Tsering 2017 - s at 2l/min at [facility], 06/07/ night 2018 Keflex / Hx Capsules 500mg one tablet Unknown 0000 - three times a 01/25/ day x 5 days 2015 Vital Signs Date Vital Result Comment 12/05/2017 Heart Rate 72 /min Respiratory Rate 18 /min Body Temperature 98.4 F 12/04/2017 Height 60 inches 5'0" Weight 127.00 lb Heart Rate 60 /min BP Systolic Sitting 124 mmHg BP Diastolic Sitting 70 mmHg Respiratory Rate 14 /min O2 % BldC Oximetry 99 % BMI (Body Mass Index) 24.8 kg/m2 11/28/2017 Heart Rate 72 /min Respiratory Rate [...] 5 1 FU 2 SEE RESULTS BELOW [id number] APLIGRAF TRANSFUSED 06/01/16 1158 3 SEE RESULTS BELOW [id number] APLIGRAF TRANSFUSED 05/04/16 1056 4 SEE RESULTS BELOW [id number] APLIGRAF TRANSFUSED 04/20/16 1010 5 SEE RESULTS BELOW [id number] APLIGRAF TRANSFUSED 04/06/16 1059 Procedures Date CPT Code Description Status 06/07/2017 33758 Pulmonary Stress Test Simple Completed 06/07/2017 23605 Pulmonary Stress Testing[facility] Measurement Heart Rate, Completed Oximetry 05/22/2017 09730 ECHO Transthorasic Realtime 2D W Doppler & Color Flow Completed Hosp 05/07/2017 47480 EEG Recording Awake & Asleep Completed 06/01/2016 84437 Application Skin Substitute Graft Trunk,Arms Lets Up To Completed 100 SQ CM 05/25/2016 04459 Removal Devitalization Tissue Wound Less Than Equal 20 Completed Square CM 05/05/2016 21478 Closed TX Metacarpal FX Single W/O Manipulation, Ea Completed Bone 05/04/2016 98060 Application Skin Substitute Graft Trunk,Arms Lets Up To Completed 100 SQ CM 04/27/2016 19074 Removal Devitalization Tissue Wound Less Than Equal 20 Completed Square CM 04/20/2016 94469 Removal Devitalization Tissue Wound Less Than Equal 20 Completed Square CM 04/20/2016 70043 Application Skin Substitute Graft Trunk,Arms Lets Up To Completed 100 SQ CM 04/11/2016 26840 Removal Devitalization Tissue Wound Less Than Equal 20 Completed Square CM 04/11/2016 04449 Debridement Skin,& sq Tissue Completed 04/06/2016 53715 Application Skin Substitute Graft Trunk,Arms Lets Up To Completed 100 SQ CM 04/06/2016 80978 Add'l 25 SQ CM Application Skin Graft Completed 04/06/2016 79981 Removal Devitalization Tissue Wound Less Than Equal 20 Completed Square CM 03/23/2016 31755 Removal Devitalized Tissue Wound Greater Than 20 Square Completed CM 03/23/2016 75479 Removal Devitalization Tissue Wound Less Than Equal 20 Completed Square CM 03/15/2016 15408 Removal Devitalized Tissue Wound Greater Than 20 Square Completed CM 03/15/2016 49003 Removal Devitalization Tissue Wound Less Than Equal 20 Completed Square CM 03/08/2016 09487 Removal Devitalized Tissue Wound Greater Than 20 Square Completed CM 03/08/2016 25961 Removal Devitalization Tissue Wound Less Than Equal 20 Completed Square CM 03/01/2016 41591 Removal Devitalized Tissue Wound Greater Than 20 Square Completed CM 03/01/2016 19693 Removal Devitalization Tissue Wound Less Than Equal 20 Completed Square CM 12/22/2015 65828 Closed [place] Articular FX,Invol Metacarpophalangeal Or Completed Interphal JT 11/15/2015 90889 Diffusing Capacity Completed 11/15/2015 65854 Pulmonary Function><Bronchodil Completed 10/05/2015 02908 ECHO Transthoracic, Real-Time 2D With Doppler And Color Completed Flow Encounters Type Date Location Provider CPT E/M Dx Office Visit 12/04/2017 [facility] [place] [address] R09.02 1:30p [facility] Office Visit 11/28/2017 [facility], 20849 S41.112A 1:45p [facility] [place] S80.812A Office Visit 11/23/2017 3:30p [facility] Kehinde Sanders 75438 S41.112A [facility] S80.812A W19.xxxA Office Visit 06/12/2017 10:00a [facility] Lucio Regaladoney, 33787 I65.23 [facility] Cyndi J44.9 Z86.73 Z79.82 Office Visit 12/13/2016 4:02p [facility], Fadi Arammanda, 70543 E87.1 Hospitalists Cyndi N39.0 R31.9 R41.82 Office Visit 12/12/2016 4:01p [facility], Trino Cortés M.D. 42394 E87.1 Hospitalists N39.0 R31.9 R41.82 Office Visit 07/18/2016 2:30p [facility] [address] R09.02 [facility] Office Visit 06/20/2016 2:59p [facility] AT Lucio Connors, [address]150 I87.311 [facility] L97.811 Office Visit 06/13/2016 2:44p [facility] Lucio Connors, 81318 I87.311 AT [facility] L97.811 Office Visit 06/06/2016 9:54a [facility] Lucio Connors, 41007 I87.311 AT [facility] L97.811 Office Visit 05/02/2016 2:00p Pul[facility] [place] [address] G47.9 [facility] R09.02 Office Visit 12/29/2015 2:15p [facility] M.D. 72938 S81.011D C.MEliezerAEliezer Z48.02 Office Visit 12/23/2015 10:24a [facility], Mayuri Yañez, 02176 E87.1 Hospitalists Cyndi S61.209A S63.279A S81.011A Office Visit 12/22/2015 10:24a [facility], Mayuri Yañez, 11128 E87.1 Hospitalists MTin S61.209A S63.279A S81.011A Office Visit 12/22/2015 7:00a [facility], 24940 S63.282A C.M.Umer Hanna S62.610A S62.611A S81.011A W10.1xxA Office Visit 12/21/2015 10:23a [facility] Leidy 86498 S81.011A shawna Beltrán II, M.D. Hospitalists S63.279A S61.209A E87.1 Plan of Care Future Appointment(s):12/12/2017 1:30 pm - Kehinde Sanders MD at [facility]06/06/2018 1:45 pm - Tsering Blount MD at [facility]12/05/2017 - Kehinde Sanders, MDS80.812D Abrasion, left lower leg, subsequent encounterFollow up:Continue present wound care One week lfelftneyanV12.112D Laceration w/o foreign body of left upper arm, subs encntr
--- OUTSIDE RECORDS SUMMARY | 2017-12-06 14:14 | XMS REPORT ---
:1935 External Reference #:[id number] Author Organization [employer] Address [address] [place] [address] [place] [address] Phone [phone] Care Team Providers Name Role Phone Eri Hankins MD Primary Care Physician Unavailable Payers Type Date Identification Numbers Payment Provider Subscriber Medicare Primary Policy Number: [id number] Medicare Belia Francisco PayID: [id number] [address] [place] [address] Medigap Part B Policy Number: [id number] [facility] Belia Francisco PayID: [id number] [address] [place] [address] Problems Date Description Provider Status Onset: 05/02/2016 [...] R09.02 Tsering 2018 s at 2l/min at [facility], night and with exertion, rob to [...] mouth Unknown 0000 24HR every day Miralax 00/ Active Powder 3350NF 17 gm every Unknown 0000 day mixed w/ 8 oz water/juice Lipitor / Active Tablets 20mg one tab [...] Tsering 2017 - s at 2l/min at [facility], 06/07/ night 2018 Keflex / Hx Capsules 500mg one tablet Unknown 0000 - three times a 01/25/ day x 5 days 2015 Vital Signs Date Vital Result Comment 12/04/2017 Height 60 inches 5'0" Weight 127.00 [...] 5 1 FU 2 SEE RESULTS BELOW [id number] APLIGRAF TRANSFUSED 06/01/16 1158 3 SEE RESULTS BELOW [id number] APLIGRAF TRANSFUSED 05/04/16 1056 4 SEE RESULTS BELOW [id number] APLIGRAF TRANSFUSED 04/20/16 1010 5 SEE RESULTS BELOW [id number] APLIGRAF TRANSFUSED 04/06/16 1059 Procedures Date CPT Code Description Status 06/07/2017 16888 Pulmonary Stress Test Simple Completed 06/07/2017 35858 Pulmonary Stress Testing, Inc Measurement Heart Rate, Completed Oximetry 05/22/2017 14590 ECHO Transthorasic Realtime 2D W Doppler & Color Flow Completed Hosp 05/07/2017 23067 EEG Recording Awake & Asleep Completed 06/01/2016 09629 Application Skin Substitute Graft Trunk,Arms Lets Up To Completed 100 SQ CM 05/25/2016 98927 Removal Devitalization Tissue Wound Less Than Equal 20 Completed Square CM 05/05/2016 77835 Closed TX Metacarpal FX Single W/O Manipulation, Ea Completed Bone 05/04/2016 65758 Application Skin Substitute Graft Trunk,Arms Lets Up To Completed 100 SQ CM 04/27/2016 24504 Removal Devitalization Tissue Wound Less Than Equal 20 Completed Square CM 04/20/2016 08214 Removal Devitalization Tissue Wound Less Than Equal 20 Completed Square CM 04/20/2016 93039 Application Skin Substitute Graft Trunk,Arms Lets Up To Completed 100 SQ CM 04/11/2016 83894 Removal Devitalization Tissue Wound Less Than Equal 20 Completed Square CM 04/11/2016 69502 Debridement Skin,& sq Tissue Completed 04/06/2016 53888 Application Skin Substitute Graft Trunk,Arms Lets Up To Completed 100 SQ CM 04/06/2016 74298 Add'l 25 SQ CM Application Skin Graft Completed 04/06/2016 67783 Removal Devitalization Tissue Wound Less Than Equal 20 Completed Square CM 03/23/2016 28816 Removal Devitalized Tissue Wound Greater Than 20 Square Completed CM 03/23/2016 76150 Removal Devitalization Tissue Wound Less Than Equal 20 Completed Square CM 03/15/2016 18963 Removal Devitalized Tissue Wound Greater Than 20 Square Completed CM 03/15/2016 55290 Removal Devitalization Tissue Wound Less Than Equal 20 Completed Square CM 03/08/2016 37190 Removal Devitalized Tissue Wound Greater Than 20 Square Completed CM 03/08/2016 51391 Removal Devitalization Tissue Wound Less Than Equal 20 Completed Square CM 03/01/2016 45969 Removal Devitalized Tissue Wound Greater Than 20 Square Completed CM 03/01/2016 27448 Removal Devitalization Tissue Wound Less Than Equal 20 Completed Square CM 12/22/2015 01415 Closed TX Articular FX,Invol Metacarpophalangeal Or Completed Interphal JT 11/15/2015 93880 Diffusing Capacity Completed 11/15/2015 87368 Pulmonary Function><Bronchodil Completed 10/05/2015 04011 ECHO Transthoracic, Real-Time 2D With Doppler And Color Completed Flow Encounters Type Date Location Provider CPT E/M Dx Office Visit 11/28/2017 [facility] Kehinde Sanders, 07711 S41.112A 1:45p Of [facility]O S80.812A Office Visit 11/23/2017 3:30p [facility] Kehinde Sanders, 58641 S41.112A Of [facility] S80.812A W19.xxxA Office Visit 06/12/2017 10:00a [facility] Lucio Vela, 44146 I65.23 Services Of Monica Hanna J44.9 Z86.73 Z79.82 Office Visit 12/13/2016 4:02p [facility],pc Fadi Lamb, 15744 E87.1 Hospitalists Cyndi N39.0 R31.9 R41.82 Office Visit 12/12/2016 4:01p [facility], Trino Cortés M.D. 64485 E87.1 Hospitalists N39.0 R31.9 R41.82 Office Visit 07/18/2016 2:30p [facility] [place] [address] R09.02 Services Of [facility] Office Visit 06/20/2016 2:59p [facility] Lucio Connors, 05464 I87.311 [facility] L97.811 Office Visit 06/13/2016 2:44p [facility] Lucio Connors, 12649 I87.311 AT [facility] L97.811 Office Visit 06/06/2016 9:54a [facility] Lucio Connors, 50981 I87.311 AT [facility] L97.811 Office Visit 05/02/2016 2:00p [place] [address] G47.9 Services Of [facility] R09.02 Office Visit 12/29/2015 2:15p [facility] John M.D. 35953 S81.011D Juan.MAbby Z48.02 Office Visit 12/23/2015 10:24a [facility], Mayuri Yañez, 53317 E87.1 Hospitalists Cyndi S61.209A S63.279A S81.011A Office Visit 12/22/2015 10:24a [facility], Mayuri Yañez, 08225 E87.1 Hospitalists MTin S61.209A S63.279A S81.011A Office Visit 12/22/2015 7:00a [facility] Maradi[facility], 27187 S63.282A Abel Hanna S62.610A S62.611A S81.011A W10.1xxA Office Visit 12/21/2015 10:23a [facility] Leidy 54884 S81.011A Assoc, Cyndi [facility] Hospitalists S63.279A S61.209A E87.1 Plan of Care Future Appointment(s):06/06/2018 1:45 pm - Tsering Blount MD at Pul[facility]ology [facility] Sleep Services [facility]12/04/2017 - Tsering Blount, MDR09.02 HypoxemiaFollow up:6 months
[2017-12-06 14:19] VITALS: BP 153/83
--- NOTE | 2017-12-06 16:59 | UC ---
Skin Complaint HPI - HPI Summary HPI Summary: Patient is an 82-year-old female presenting to the with a complaint of wound dehiscence while at physical therapy. She states this happened last week as well, was seen in the and Steri-Strips are placed the time. She sustained an injury on November 19 which was a partial degloving of the upper arm just distal to the elbow. Sutures were placed and she had followed up with Dr. Sanders. She states while at PT today the area opened up slightly with some bleeding. The area was bandaged by the PT and sent here for evaluation. - History of Current Complaint Chief Complaint: UCLaceration Time Seen by Provider: 12/06/17 14:41 Stated Complaint: RE-CK WOUND Hx Obtained From: Patient ?: No Onset/Duration: Sudden Onset Skin Exposure Onset/Duration: Weeks Ago Timing: Constant Onset Severity: Moderate Current Severity: Moderate Pain Intensity: 0 Pain Scale Used: 0-10 Numeric Alleviating Factor(s): Nothing Associated Signs & Symptoms: Positive: Negative Related History: Trauma - Allergy/Home Medications Allergies/Adverse Reactions: Allergies Allergy/AdvReac Type Severity Reaction Status Date / Time latex Allergy Rash Verified 12/06/17 14:20 Review of Systems Constitutional: Negative Skin: Bruising, Other - dehiscence of wound Respiratory: Negative Cardiovascular: Negative Motor: Negative Neurovascular: Negative Psychological: Negative Is Patient Immunocompromised?: No All Other Systems Reviewed And Are Negative: Yes PMH/Surg Hx/FS Hx/Imm Hx Previously Healthy: Yes - Surgical History Surgical History: Yes Surgery Procedure, Year, and Place: BILATERAL LOWER LUNG LOBECTOMY. BILAT TOTAL KNEE REPLACEMENTS. TONSILS. REPAIR PROLAPSED BLADDER. BILATERAL CATARACTS. TORN RETINA IN BILATERAL EYES REPAIR-NO OP REPORT WILL CLEAR WITH ORBIT DX PER DR MOLINA - Family History Known Family History: Positive: Other - Mother - stroke - Social History Occupation: Unemployed Lives: With Family Alcohol Use: None Substance Use Type: None Smoking Status (MU): Former Smoker Type: Cigarettes Household Exposure Type: Cigarettes - Immunization History Most Recent Influenza Vaccination: Fall 2014 Most Recent Tetanus Shot: 12/21/15 Most Recent Pneumonia Vaccination: Unknown but thinks is up to date Physical Exam Triage Information Reviewed: Yes Appearance: Well-Appearing, No Pain Distress, Well-Nourished Vital Signs: Initial Vital Signs Temp 97.7 F 12/06/17 14:15 Pulse 69 12/06/17 14:15 Resp 12 12/06/17 14:15 BP 153/83 12/06/17 14:15 Pulse Ox 95 12/06/17 14:15 Vital Signs Reviewed: Yes Eye Exam: Normal Neck exam: Normal Neck: Positive: Supple Respiratory: Positive: Lungs clear Musculoskeletal: Positive: Strength Intact Neurological Exam: Normal Psychological: Positive: Normal Response To Family Skin: Positive: Other - dehiscence of wound Course/Dx - Course Course Of Treatment: Patient was evaluated for a partial dehiscence of the wound just distal to her left elbow. She states this is happened last week and Steri-Strips were placed with good effect. On arrival, there is no bleeding noted to the wound. Occlusive gauze, Telfa, gauze wrapped and cope and with mild pressure applied to the wound. She will change the bandage every 2 days and follow-up with Dr. Hankins. I did not feel at this time she will need to follow-up with surgery for wound care. The area does not appear to be infected or oozing fluids. There is a large amount of ecchymosis extending up from the elbow to the wrist. - Diagnoses Provider Diagnoses: Wound Dehiscence Discharge - Sign-Out/Discharge Documenting (check all that apply): Patient Departure - Discharge Plan Condition: Stable Disposition: HOME Patient Education Materials: Chronic Wound Care (ED) Referrals: Eri Hankins MD [Primary Care Provider] - Additional Instructions: Occlusive gauze over wound Then telfa dressing applied Wrap with kerlix white gauze wrap follow with Coban (brown) dressing - do not place too tight If the area begins to seep through, change every day if not, the wound care can be done every 2 days please follow up with Dr. Hankins for further wound care - Billing Disposition and Condition Condition: STABLE Disposition: Home Attestation Statement User Type: Provider - I was available for consult. This patient was seen by the JOE. The patient was not presented to, seen by, or examined by me. -Huy
== END 2017-12-06 15:15 | disposition home or self-care (01) ==
LOC: UCEAST 14:03
DX: T81.30XD Disruption of wound, unspecified, subsequent encounter (principal); Z91.040 Latex allergy status; Y83.8 Other surgical procedures as the cause of abnormal reaction of the patient, or of later complication, without mention of misadventure at the time of the procedure; Z87.891 Personal history of nicotine dependence; Z96.653 Presence of artificial knee joint, bilateral
CPT/HCPCS: 99211; G0463

== ENCOUNTER 2018-02-15 12:48 | Emergency (ER) | payer MEDICARE, BC ==
--- OUTSIDE RECORDS SUMMARY | 2018-02-15 12:53 | XMS REPORT | Continuity of Care Document ---
:1935 External Reference #:[id number] Author Name Jeannette Chandra O.D. Address [address] [place] [address] Care Team Providers Name Role Phone Eri Hankins M.D. Primary Care Physician Unavailable Payers Type Date Identification Numbers Payment Provider Subscriber Policy Number: [id number] Medicare - NGS Belia Francisco PayID: [id number] [address] [place] [address] Policy Number: [id number] [place] Plan Belia Francisco PayID: [id number] [address] [place] [address] Advance Directives Description No Information Available Problems Date Description Provider Status Onset: Carcinoma in situ of lung Active Onset: Hypothyroidism Active Onset: Essential hypertension Active Onset: Osteoporosis Active Onset: Osteoarthritis Active Onset: 12/18/2014 Epiretinal membrane Jeannette Chandra O.D. Active Onset: 12/18/2014 Corneal endothelial dystrophy Jeannette Chandra O.D. Active Onset: 12/18/2014 Old partial retinal detachment Jeannette Chandra O.D. 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 Active Onset: Hypercholesterolemia Active Onset: 01/04/2017 Presbyopia Jeannette Chandra O.D. Active Onset: 01/04/2017 Myopia Jeannette Chandra O.D. Active Onset: 01/04/2017 Regular astigmatism Jeannette Chandra O.D. 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 Family History Date Family Member(s) Problem(s) Comments General No Current Problems Father No Current Problems Mother No Current Problems Social History Type Date Description Comments Sex Unknown Marital Status Legal Status: Occupation Homemaker Work Status Retired ETOH Use Denies alcohol use Tobacco Use Start: Unknown End: Unknown Patient is a former smoker Recreational Drug Use Denies Drug Use Smoking Status Reviewed: 01/18/18 Patient is a former smoker Allergies, Adverse Reactions, Alerts Description No Known Drug Allergies Medications Medication Date Status Form Strength Qnty SIG Indications Ordering Provider Visine Tears 01/17/ Active Solution 0.2-0.2-1 OD as needed Jeannette Wilson % Ron Chandra Sulfamethoxazol // Active Tablets 800-160mg [place], e/Trimethoprim 0000 Jacinto Hanna DS Lisinopril / Active Tablets 20mg Take 1 Tablet Unknown 0000 By Mouth Every Day Levothyroxine 00// Active Tablets 50mcg Take 1 Tablet Unknown Sodium 0000 By Mouth Every Day Metoprolol 00// Active Tablets 50mg Take 1 Tablet Unknown Succinate ER 0000 ER 24HR By Mouth Twice A Day Doxazosin 00/00/ Active Tablets 1mg Take 1 Tablet Unknown Mesylate 0000 By Mouth Twice A Day Calcium 1200 00// Active Unknown 0000 Multiple 00// Active Tablets Unknown Vitamins 0000 Atorvastatin 00/00/ Active Tablets 20mg Unknown Calcium 0000 Fluconazole 00/00/ Active Tablets 200mg Unknown 0000 Silver / Active Cream 1% Unknown Sulfadiazine 0000 Amlodipine /00/ Active Tablets 2.5mg Hankins, Besylate 0000 Eri Hanna Nexium 00// Active Capsules 20mg Unknown [address] DR Miralax / Active Powder 3350NF dissolve 17gm Unknown 0000 in 4-8ox liquid and drink twice a day as needed for constipation Doxycycline / Hx Capsules 100mg Unknown Hyclate 0000 - 2015 Immunizations Description No Information Available Vital Signs Description No Information Available Results Description No Information Available Procedures Date Code Description Status 07/10/2017 85184 Scanning Computerized Opthalmic Diagnostic Posterior Seg Completed Retina 07/10/2017 24725 Est Patient Comprehensive Exam Completed 01/04/2017 99366 Scanning Computerized Opthalmic Diagnostic Posterior Seg Completed Retina 01/04/2017 71058 Determination Of Refractive State Completed 01/04/2017 80657 Est Patient Comprehensive Exam Completed 12/19/2016 10723 Patient No Show For Appt Completed 06/20/2016 72721 Scanning Computerized Opthalmic Diagnostic Posterior Seg Completed Retina 06/20/2016 37515 Est Patient Intermediate Exam Completed 12/07/2015 72421 Scanning Computerized Opthalmic Diagnostic Posterior Seg Completed Retina 12/07/2015 47780 Est Patient Intermediate Exam Completed 09/07/2015 98080 Est Patient Intermediate Exam Completed 09/07/2015 61015 Scanning Computerized Opthalmic Diagnostic Posterior Seg Completed Retina 06/29/2015 43295 Scanning Computerized Opthalmic Diagnostic Posterior Seg Completed Retina 06/29/2015 65705 Est Patient Comprehensive Exam Completed 12/18/2014 34315 Scanning Computerized Opthalmic Diagnostic Posterior Seg Completed Retina 12/18/2014 65061 Est Patient Intermediate Exam Completed 06/11/2014 72916 Scanning Computerized Opthalmic Diagnostic Posterior Seg Completed Retina 06/11/2014 08792 Est Patient Comprehensive Exam Completed 09/01/2013 80433 Scanning Computerized Opthalmic Diagnostic Posterior Seg Completed Retina 09/01/2013 52555 Remove Secondary Cataract, Laser (Yag) Completed 08/28/2013 67780 New Patient Comprehensive Exam Completed Encounters Description No Information Available Plan of Treatment 01/18/2018 - Jeannette Chandra O.D.H35.372 Puckering of macula, left eyeComments: A Macular Pucker is a wrinkling of the retina tissue. It can cause distortion in your vision. Pleasecall the office if you notice a decrease or new distortion in your vision.Follow up:6 MONTHS OCT MACH18.51 Endothelial corneal dystrophyComments:Smoking can increase the risk of developing or worsening any eye related disease, as well as affect your overall health. If you are a smoker , we strongly recommend that you quit.If you are not a smoker, we strongly recommend that you do not start. 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 This may cause reduced vision. If you are noticing blurred vision, especially in the morning, use Dae 128 ointment inaffected eyes before bedtime.
[2018-02-15 13:26] VITALS: BP 146/72
--- NOTE | 2018-02-15 14:41 | UC ---
Laceration HPI - HPI Summary HPI Summary: Is an 83-year-old female that fell and lacerated her left forearm approximately a day and a half ago. Her tetanus shot is up-to-date. He is right handed. He cleaned and dressed her laceration the best she could. He has only mild pain. Full range of motion of the left arm. - History Of Current Complaint Chief Complaint: UCLaceration Stated Complaint: ARM INJURY Time Seen by Provider: 02/15/18 14:30 Hx Obtained From: Patient Laceration Location: Arm Mechanism Of Injury: Sharp Trauma Onset/Duration: Sudden Onset, Lasting Hours Severity: Mild Pain Intensity: 2 Pain Scale Used: 0-10 Numeric Aggravating Factors: Nothing Full Body (No Head): 1 - 10 cm "L" shaped laceration Related History: Dominant Hand Right - Allergies/Home Medications Allergies/Adverse Reactions: Allergies Allergy/AdvReac Type Severity Reaction Status Date / Time latex Allergy Rash Verified 02/15/18 13:27 PMH/Surg Hx/FS Hx/Imm Hx Previously Healthy: Yes Endocrine History: Dyslipidemia Cardiovascular History: Hypertension - Surgical History Surgical History: Yes Surgery Procedure, Year, and Place: BILATERAL LOWER LUNG LOBECTOMY. BILAT TOTAL KNEE REPLACEMENTS. TONSILS. REPAIR PROLAPSED BLADDER. BILATERAL CATARACTS. TORN RETINA IN BILATERAL EYES REPAIR-NO OP REPORT WILL CLEAR WITH ORBIT DX PER DR MOLINA - Family History Known Family History: Positive: Hypertension, Other - Mother - stroke - Social History Alcohol Use: None Alcohol Amount: smells of alcohol Substance Use Type: None Smoking Status (MU): Former Smoker Type: Cigarettes Household Exposure Type: Cigarettes - Immunization History Most Recent Influenza Vaccination: Fall 2014 Most Recent Tetanus Shot: 12/21/15 Most Recent Pneumonia Vaccination: Unknown but thinks is up to date Review of Systems Constitutional: Negative Skin: Negative Eyes: Negative ENT: Negative Respiratory: Negative Cardiovascular: Negative Gastrointestinal: Negative Genitourinary: Negative Motor: Negative Neurovascular: Negative Musculoskeletal: Negative Neurological: Negative Psychological: Negative Is Patient Immunocompromised?: No All Other Systems Reviewed And Are Negative: Yes Physical Exam Triage Information Reviewed: Yes Appearance: Well-Appearing, No Pain Distress, Well-Nourished Vital Signs: Initial Vital Signs Temp 97.8 F 02/15/18 13:23 Pulse 66 02/15/18 13:23 Resp 17 02/15/18 13:23 BP 146/72 02/15/18 13:23 Pulse Ox 100 02/15/18 13:23 Vital Signs Reviewed: Yes Eyes: Positive: Conjunctiva Clear ENT: Positive: Hearing grossly normal. Negative: Nasal congestion, Nasal drainage, Trismus, Muffled voice, Hoarse voice Neck: Positive: Supple, Nontender Respiratory: Positive: Lungs clear, Normal breath sounds, No respiratory distress, No accessory muscle use Cardiovascular: Positive: RRR Musculoskeletal: Positive: ROM Intact, No Edema Neurological: Positive: Alert Psychological Exam: Normal Skin Exam: Other - laceration as noted Laceration Repair - Laceration Repair 1 Description: Linear : No Repair Necessary - due to lenght of time since injury Laceration Size After Repair: Length (cm) - 10 cm, Width (mm) - 3 Cleansing Completed Via Routine Prep: Yes Irrigation With Pressure Irrigation Device: Yes Laceration Course/Dx - Differential Dx - Laceration/Wound Provider Diagnoses: left forearm laceration - not sutured Discharge - Sign-Out/Discharge Documenting (check all that apply): Patient Departure All imaging exams completed and their final reports reviewed: No Studies - Discharge Plan Condition: Stable Disposition: HOME Prescriptions: Cephalexin CAP* [Keflex CAP*] 500 mg PO TID #15 cap Patient Education Materials: Laceration Without Closure (ED) Referrals: Eri Hankins MD [Primary Care Provider] - 3 Days Additional Instructions: We were unable to suture you laceration because it was about a day and a half old keep dressing on until recheck see you MD early next week to recheck recheck sooner for increased pain or concerns of infection - Billing Disposition and Condition Condition: STABLE Disposition: Home
== END 2018-02-15 15:03 | disposition home or self-care (01) ==
LOC: UCEAST 12:48
DX: S51.812A Laceration without foreign body of left forearm, initial encounter (principal); W19.XXXA Unspecified fall, initial encounter; Y93.9 Activity, unspecified; Y92.9 Unspecified place or not applicable; Z91.040 Latex allergy status; Z96.653 Presence of artificial knee joint, bilateral; Z87.891 Personal history of nicotine dependence
CPT/HCPCS: 99212; G0463

== ENCOUNTER 2018-03-18 14:41 | Emergency (ER) | payer MEDICARE, BC ==
[2018-03-18 15:05] VITALS: BP 109/43
--- NOTE | 2018-03-18 16:24 | UC ---
Lower Extremity/Ankle HPI - HPI Summary HPI Summary: 83 y/o female with multiple medical conditions under Dr Hankins care presents after fall last night while going to bathroom, no LOC, seen after yb caregiver, wound to Left loewr leg, dressed last night, presents for care of wound. no headache, vision changes, well feeling other than leg laceration. patient is taking bactrim, not sure why, was prescribed by PCP - History of Current Complaint Chief Complaint: UCLaceration Stated Complaint: LEG LAC Time Seen by Provider: 03/18/18 15:41 Hx Obtained From: Patient, Family/Water Leak Repairer ?: No Onset/Duration: Sudden Onset, Lasting Hours Severity Initially: Mild Severity Currently: Mild Pain Intensity: 0 Pain Scale Used: 0-10 Numeric Able to Bear Weight: Yes - Allergies/Home Medications Allergies/Adverse Reactions: Allergies Allergy/AdvReac Type Severity Reaction Status Date / Time latex Allergy Rash Verified 03/18/18 15:05 Home Medications: Home Medications Nitrofurantoin Monohyd/M-Cryst [Macrobid 100 mg Capsule] 100 mg PO 03/18/18 [ History] Sulfamethox/Trimethoprim SS* [Bactrim SS 400/80 TAB*] 1 tab PO DAILY 03/18/18 [ History Confirmed 03/18/18] PMH/Surg Hx/FS Hx/Imm Hx Previously Healthy: No - multiple medical problems including hyponaterima - Surgical History Surgical History: Yes Surgery Procedure, Year, and Place: BILATERAL LOWER LUNG LOBECTOMY. BILAT TOTAL KNEE REPLACEMENTS. TONSILS. REPAIR PROLAPSED BLADDER. BILATERAL CATARACTS. TORN RETINA IN BILATERAL EYES REPAIR-NO OP REPORT WILL CLEAR WITH ORBIT DX PER DR MOLINA - Family History Known Family History: Positive: Hypertension, Other - Mother - stroke - Social History Alcohol Use: Occasionally Alcohol Amount: smells of alcohol Substance Use Type: None Smoking Status (MU): Former Smoker Type: Cigarettes Household Exposure Type: Cigarettes - Immunization History Most Recent Influenza Vaccination: Fall 2014 Most Recent Tetanus Shot: 12/21/15 Most Recent Pneumonia Vaccination: Unknown but thinks is up to date Review of Systems Constitutional: Negative Skin: Bruising, Other - skin tear, laceration LL leg Is Patient Immunocompromised?: No All Other Systems Reviewed And Are Negative: Yes Physical Exam Triage Information Reviewed: Yes Appearance: Well-Appearing, No Pain Distress, Well-Nourished Vital Signs: Initial Vital Signs Temp 97.9 F 03/18/18 15:01 Pulse 98 03/18/18 15:01 Resp 18 03/18/18 15:01 BP 109/43 03/18/18 15:01 Pulse Ox 93 03/18/18 15:01 Eyes: Positive: Conjunctiva Clear Neurological Exam: Normal Psychological Exam: Normal Skin: Positive: Other - superificial skin tear at left lower leg, + skin changes b/l consistent with venous insufficiency, skin tear semicircle , apprx. 3cm in diameter, non-full thickness, + bleeding easily controlled with compression, Full DF/PF for foor, PT 2+, SITLT, full ROM of ankle against resistence, ambulation normal per patient. using walker. Lower Extremity Course/Dx - Course Course Of Treatment: leg would dressed with xeroform, telfa, and cling wrap, field care advocate shown as well as instructions. PCP called re: medication, patient was to be n sodium tablets not bactrim, will follow with PCP thashley and obtain correct medication on way home. - Differential Dx/Diagnosis Differential Diagnosis/HQI/PQRI: Contusion, Puncture Wound Provider Diagnoses: superficial laceration LL leg Discharge - Sign-Out/Discharge Documenting (check all that apply): Patient Departure All imaging exams completed and their final reports reviewed: No Studies - Discharge Plan Condition: Good Disposition: HOME Patient Education Materials: Skin Tear (ED) Referrals: Eri Hankins MD [Primary Care Provider] - Additional Instructions: WOund care- over both leg and wrist wounds- Superficial skin tears- 1) clean gently with soapy water, rinse well, dab dry 2) iodoform gauze (given to patient) strip over open area 3) tefla non-stick gauze over top 4) Kban stick dressing to hold, d onot use tape or use paper tape sparingly STOP Bactrim - Sodium Chloride 1 gram four times a day order picker/assembler at pharmacy - Billing Disposition and Condition Condition: GOOD Disposition: Home
== END 2018-03-18 16:32 | disposition home or self-care (01) ==
LOC: UCEAST 14:41
DX: S81.812A Laceration without foreign body, left lower leg, initial encounter (principal); E87.1 Hypo-osmolality and hyponatremia; W19.XXXA Unspecified fall, initial encounter; Y92.9 Unspecified place or not applicable; Z72.89 Other problems related to lifestyle; Z87.891 Personal history of nicotine dependence; Z96.653 Presence of artificial knee joint, bilateral; Z90.2 Acquired absence of lung [part of]; Z79.2 Long term (current) use of antibiotics; Z91.040 Latex allergy status
CPT/HCPCS: 99212; G0463

== ENCOUNTER 2018-03-27 09:58 | Emergency (ER) | payer MEDICARE, BC ==
--- NOTE | 2018-03-27 12:18 | UC ---
Skin Complaint HPI - HPI Summary HPI Summary: 83 y/o female presents to the urgent care c/o pt was here with a skin tear to lt lower leg. pt is back stating it is leaking. pt states it started leaking yesterday. clear fluid noted. - History of Current Complaint Chief Complaint: UCWounds Time Seen by Provider: 03/27/18 12:17 Stated Complaint: L LEG WEEPING Hx Obtained From: Patient Pain Intensity: 2 - Allergy/Home Medications Allergies/Adverse Reactions: Allergies Allergy/AdvReac Type Severity Reaction Status Date / Time latex Allergy Rash Verified 03/27/18 10:36 PMH/Surg Hx/FS Hx/Imm Hx - Surgical History Surgical History: Yes Surgery Procedure, Year, and Place: BILATERAL LOWER LUNG LOBECTOMY. BILAT TOTAL KNEE REPLACEMENTS. TONSILS. REPAIR PROLAPSED BLADDER. BILATERAL CATARACTS. TORN RETINA IN BILATERAL EYES REPAIR-NO OP REPORT WILL CLEAR WITH ORBIT DX PER DR MOLINA - Family History Known Family History: Positive: Hypertension, Other - Mother - stroke - Social History Alcohol Use: Rare Alcohol Amount: smells of alcohol Substance Use Type: None Smoking Status (MU): Former Smoker Type: Cigarettes Household Exposure Type: Cigarettes - Immunization History Most Recent Influenza Vaccination: Fall 2014 Most Recent Tetanus Shot: 12/21/15 Most Recent Pneumonia Vaccination: Unknown but thinks is up to date Physical Exam - Summary Physical Exam Summary: Vital Signs Reviewed: Yes General: well developed, well nourished old female sitting in the examining table w/o any apparent distress Eye Exam: Normal Eyes: Positive: Conjunctiva Clear - PERRLA, EOMI, fundi grossly normal ENT: Positive: Normal ENT inspection, Hearing grossly normal, Pharynx normal, TMs normal Neck: Positive: Supple, Nontender, No Lymphadenopathy Respiratory: Positive: Chest non-tender, Lungs clear, Normal breath sounds, No respiratory distress Cardiovascular: Positive: RRR, No Murmur, Pulses Normal, Brisk Capillary Refill Abdomen Description: Positive: Nontender, No Organomegaly, Soft. Negative: CVA Tenderness (R), CVA Tenderness (L) Bowel Sounds: Positive: Present Musculoskeletal: Positive: Strength Intact, ROM Intact, No Edema Neurological: Positive: Alert, Muscle Tone Normal Psychological Exam: Normal Skin: Positive:Lateral side of RT elbow near the lateral epicondyle with a linear superficial laceration about 2.5cm in size, bleeding, no foreign body observed. mild tenderness to palpation, mild ecchymosis around elbow. FROM of RT arm, sensation intact, capillary refill brisk, and pulses WNL. Triage Information Reviewed: Yes Vital Signs: Initial Vital Signs Temp 97.8 F 03/27/18 10:33 Pulse 77 03/27/18 10:33 Resp 18 03/27/18 10:33 BP 131/63 03/27/18 10:33 Pulse Ox 94 03/27/18 10:33 Course/Dx - Differential Diagnoses - Skin Complaint Differential Diagnoses: Abscess, Cellulitis, MRSA, Other - compartment syndrome. - Diagnoses Provider Diagnoses: 1- Left lower leg cellulitis s/p tear Discharge - Sign-Out/Discharge Documenting (check all that apply): Patient Departure - D/c home All imaging exams completed and their final reports reviewed: No Studies - Discharge Plan Condition: Stable Disposition: HOME Prescriptions: Bacitracin OINTMENT* 1 applic TOPICAL BID #1 tube Cephalexin CAP* [Keflex CAP*] 500 mg PO TID #21 cap Patient Education Materials: Low-Sodium Diet (ED), Acute Wounds (ED) Referrals: Eri Hankins MD [Primary Care Provider] - 3 Days Additional Instructions: 1-Please take full course of antibiotic to avoid resistance and alleviate symptoms 2- Keep wound clean and dry and keep your left leg elevated to avoid swelling. Avoid standing for long period of times. 3- Use Aquaform cream to apply on your dry skin after you take a shower on a daily basis 4- Please F/u w/ your PCP DR Hankins in 3 days to check if symptoms are improving. 5- If you develop fever and leg severe leg swelling w/ pain please go immediately to the ER for further evaluation and treatment. 6-Your BP is elevated today. please decrease salt in your diet, monitor BP and if it continues to be elevated please f/u with your PCP for further management - Billing Disposition and Condition Condition: STABLE Disposition: Home
[2018-03-27 12:47] VITALS: BP 156/64
== END 2018-03-27 13:17 | disposition home or self-care (01) ==
LOC: UCEAST 09:58
DX: L03.116 Cellulitis of left lower limb (principal); Z91.040 Latex allergy status; Z87.891 Personal history of nicotine dependence
CPT/HCPCS: 99212; G0463

== ENCOUNTER 2018-04-04 08:01 | Inpatient (IN) | payer MEDICARE, BC ==
[2018-04-04 08:25] LABS: ABS Basophils 0 10^3/ul (0-0.2); ABS Eosinophils 0.1 10^3/ul (0-0.6); ABS Lymphocytes 0.4 10^3/ul (1.0-4.8); ABS Monocytes 0.3 10^3/ul (0-0.8); ABS Neutrophils 3.9 10^3/ul (1.5-7.7); ABS Nucleated RBC 0 10^3/ul; Eosinophil % 1.7 % (0-6); Hematocrit 32 % (35-47); Hemoglobin 10.6 g/dl (12.0-16.0); Lymphocyte % 8.1 % (25-47); Mean Corpuscular HGB Conc 34 g/dl (31-36); Mean Corpuscular Hemoglobin 30 pg (27-31); Mean Corpuscular Volume 90 fL (80-97); Mean Platelet Volume 6.8 fL (7.4-10.4); Nucleated Red Blood Cells % 0.1; Platelet Count 279 10^3/ul (150-450); Red Blood Count 3.52 10^6/ul (4.00-5.40); Red Cell Distribution Width 15 % (10.5-15); White Blood Count 4.7 10^3/ul (3.5-10.8)
--- NOTE | 2018-04-04 08:26 | ED ---
Shortness of Breath - HPI Summary HPI Summary: This patient is a 83 year old M brought in by EMS to [facility] with a chief complaint of SOB since she woke up this morning. EMS reports the patient is usually on 2L NC at night but recently not only has she been wearing it during the day but she has slowly increasing the flow of the O2. They also report that on arrival her O2 sat was 85% and when placed on 5L NC all sx improved and her sat fabrizio to 98%. The patient rates the pain 0/10 in severity. Patient reports mild LLE edema. Patient denies cough, CP, fever, chills, n/v/d, constipation, ABD distension (beyond baseline), ABD pain, and LE pain. She is taking her sodium pills as prescribed. - History of Current Complaint Chief Complaint: EDShortnessOfBreath Hx Obtained From: Patient Onset/Duration: Lasting Hours, Still Present Timing: Constant Current Severity: Moderate Dyspnea At: Rest Alleviating Factors: EMS Tx Associated Signs & Symptoms: Negative - cough, CP, fever, chills, n/v/d, constipation, ABD distension (beyond baseline), ABD pain, and LE pain. - Allergy/Home Medications Allergies/Adverse Reactions: Allergies Allergy/AdvReac Type Severity Reaction Status Date / Time latex Allergy Rash Verified 04/04/18 08:09 PMH/Surg Hx/FS Hx/Imm Hx Endocrine/Hematology History: Reports: Hx Thyroid Disease, Hx Anemia - X1 Denies: Hx Diabetes Cardiovascular History: Reports: Hx Hypercholesterolemia, Hx Hypertension Denies: Hx Pacemaker/ICD Respiratory History: Reports: Hx Lung Cancer - With chemo, Hx Pneumonia, Other Respiratory Problems/Disorders - LUNG CA, LOWER LOBES OF BOTH LUNGS REMOVED Denies: Hx Asthma, Hx Chronic Obstructive Pulmonary Disease (COPD) GI History: Reports: Hx Gastroesophageal Reflux Disease, Hx Ulcer Denies: Hx Gastrointestinal Bleed, Hx Hiatal Hernia History: Denies: Hx Renal Disease Musculoskeletal History: Reports: Hx Arthritis Sensory History: Reports: 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, Hx Eye Injury, Hx Legally Blind - RIGHT EYE, Hx Vision Problem - Can't see out of R eye surgery causes retinal detatchment Denies: Hx Contacts or Glasses, Hx Hearing Aid Opthamlomology History: Reports: 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 BILAT TOTAL KNEE REPLACEMENTS. TONSILS. REPAIR PROLAPSED BLADDER. BILATERAL CATARACTS. TORN RETINA IN BILATERAL EYES REPAIR-NO OP REPORT WILL CLEAR WITH ORBIT DX PER DR MOLINA - Immunization History Date of Tetanus Vaccine: unknown Infectious Disease History: No Infectious Disease History: Denies: Hx Clostridium Difficile, Hx Hepatitis, Hx Human Immunodeficiency Virus (HIV), Hx of Known/Suspected MRSA, Hx Shingles, Hx Tuberculosis, Hx Known/ Suspected VRE, Hx Known/Suspected VRSA, History Other Infectious Disease, Traveled Outside the [place] in Last 30 Days - Family History Known Family History: Positive: Cardiac Disease, Hypertension, Other - Mother - stroke Family History: Mother - stroke - Social History Alcohol Use: Rare Alcohol Amount: smells of alcohol Substance Use Type: Reports: None Smoking Status (MU): Former Smoker Type: Cigarettes Review of Systems Negative: Fever, Chills Negative: Chest Pain Positive: Shortness Of Breath. Negative: Cough Gastrointestinal: Negative - constipation, ABD distension (beyond baseline), Negative: Abdominal Pain, Vomiting, Diarrhea, Nausea Musculoskeletal: Negative - LE pain Positive: Edema All Other Systems Reviewed And Are Negative: Yes Physical Exam - Summary Physical Exam Summary: VITAL SIGNS: Reviewed. GENERAL: Patient is a well-developed and elderly female who is lying comfortable in the stretcher. Patient is not in any acute respiratory distress. HEAD AND FACE: No signs of trauma. No ecchymosis, hematomas or skull depressions. No sinus tenderness. EYES: PERRLA, EOMI x 2, No injected conjunctiva, no nystagmus. EARS: Hearing grossly intact. Ear canals and tympanic membranes are within normal limits. MOUTH: Oropharynx within normal limits. NECK: Supple, trachea is midline, no adenopathy, no JVD, no carotid bruit, no c- spine tenderness, neck with full ROM. CHEST: Symmetric, no tenderness at palpation LUNGS: coarse breath sounds bilaterally CVS: Regular rate and rhythm, S1 and S2 present, no murmurs or gallops appreciated. ABDOMEN: Soft, non-tender. Chronic distension. No rebound no guarding, and no masses palpated. Bowel sounds are normal. EXTREMITIES: FROM in all major joints, the LLE is swollen in comparison to the right. NEURO: Alert and oriented x 3. No acute neurological deficits. Speech is normal and follows commands. SKIN: wound in the RLE Triage Information Reviewed: Yes Vital Signs On Initial Exam: Initial Vitals Temp Pulse Resp BP Pulse Ox 98.1 F 76 18 169/78 96 04/04/18 08:06 04/04/18 08:06 04/04/18 08:06 04/04/18 08:06 04/04/18 08:06 Vital Signs Reviewed: Yes Diagnostics - Vital Signs Vital Signs Temp Pulse Resp BP Pulse Ox 04/04/18 08:06 98.1 F 76 18 169/78 96 - Laboratory Result Diagrams: 04/04/18 08:16 04/04/18 08:16 Lab Statement: Any lab studies that have been ordered have been reviewed, and results considered in the medical decision making process. - Radiology CXR Radiology Interpretation Completed By: Radiologist Summary of Radiographic Findings: FINDINGS MOST CONSISTENT WITH CONGESTIVE HEART FAILURE. ED physician has reviewed this radiology report. - EKG 0816 Cardiac Rate: NL EKG Rhythm: Sinus Rhythm - at 67 BPM Summary of EKG Findings: no ST elevations Course/Dx - Course Assessment/Plan: This patient is a 83 year old M brought in by EMS to [facility] with a chief complaint of SOB since she woke up this morning. EMS reports the patient is usually on 2L NC at night but recently not only has she been wearing it during the day but she has slowly increasing the flow of the O2. They also report that on arrival her O2 sat was 85% and when placed on 5L NC all sx improved and her sat fabrizio to 98%. The patient rates the pain 0/10 in severity. Patient reports mild LLE edema. Patient denies cough, CP, fever, chills, n/v/d, constipation, ABD distension (beyond baseline), ABD pain, and LE pain. She is taking her sodium pills as prescribed. Chest x-ray impression: Positive chest congestion. Blood work without any significant abnormality except for decreased hemoglobin of 10.6 and hematocrit 32. Glucose 111, BNP of 454. In the ED course the patient was given Lasix IV. The patient is saturating 96% 2 L of oxygen however when reviewed multi-oxygen the patient drops to the mid 80s. At this point I discussed my physical exam, findings and test results with Dr. Hankins and she will be admitted the patient to his services for further workup and management. At this point the patient is hemodynamically stable alert and oriented 3. - Diagnoses Differential Diagnosis/HQI/PQRI: Positive: CHF, DE, Pneumonia Provider Diagnoses: Acute exacerbation of CHF (congestive heart failure) - Physician Notifications Discussed Care of Patient With: Eri Hankins Time Discussed With Above Provider: 09:28 Instructed by Provider To: Other - She has agrred to come see the patient in the ED. 11:[address] Hankins saw the patient she has chosen to admit her Discharge - Sign-Out/Discharge Documenting (check all that apply): Patient Departure - admitted All imaging exams completed and their final reports reviewed: No Studies - Discharge Plan Condition: Fair Disposition: ADMITTED TO [facility] - Billing Disposition and Condition Condition: FAIR Disposition: Admitted to [facility] - Attestation Statements Document Initiated by Scribe: Yes Documenting Scribe: Jersey Monroy Provider For Whom Scribe is Documenting (Include Credential): Ozzy Saucedo MD Scribe Attestation: IJersey , scribed for Ozzy Saucedo MD on 04/04/18 at 1820. Scribe Documentation Reviewed: Yes Provider Attestation: The documentation as recorded by the Jersey cueva accurately reflects the service I personally performed and the decisions made by me, Ozzy Saucedo MD
[2018-04-04 08:49] LABS: EGFR Non-African American 126.6 (>60)
[2018-04-04] MEDS ORDERED: Furosemide IV* 10 MG/ML 2 ML VIAL (20 MG) IV ONE (09:47)
[2018-04-04 09:57] LABS: Urine Appearance Clear; Urine Blood Negative (Negative); Urine Color Yellow; Urine Ketones Negative (Negative); Urine Protein Negative (Negative); Urine Red Blood Cell Absent (Absent); Urine Specific Gravity 1.014 (1.010-1.030); Urine Urobilinogen Negative (Negative); Urine White Blood Cell Trace(0-5/hpf) (Absent)
[2018-04-04] MEDS: Levothyroxine TAB* 50 MCG TAB PO SCH (14:22)
[2018-04-04] MEDS: Aspirin 81 mg CHEW TAB* 81 MG TAB.CHEW PO SCH (14:22)
[2018-04-04] MEDS: Omeprazole CAP* 20 MG PO SCH (14:22)
[2018-04-04] MEDS: Heparin VIAL(*) 5000 UNITS/ML VIAL (FIVE THOUSAND) SUBCUT SCH ×2 (14:22→21:13)
--- NOTE | 2018-04-04 15:58 | ECHO ---
Patient: NELSY MAN [facility] Rec#: [id number] : 1935 Date: 04/04/2018 Age: 83y Height: 152.4 cm / 60.0 in Weight: 56.7 kg / 125.0 lbs Sex: F BSA: 1.53 Room#: ED 15 Admit Date#: 04/04/2018 Type: Inpatient Referring: Eri Hankins MD Reading: Brandin Mckeon DO Java Project Manager: Fatimah Cade RN RDCS Transthoracic Echocardiogram Indication: Shortness of breath BP: 132/64 HR: 71 Rhythm: NSR with PVCs Findings History: HTN, CVA, lung cancer, bilateral lower lobectomy Technical Comments: The study quality is fair. Completed at 1440. Left Ventricle: The left ventricular chamber size is normal. Mild concentric left ventricular hypertrophy is observed. There is a prominent septal knuckle. Global left ventricular wall motion and contractility are within normal limits. There is normal left ventricular systolic function. The estimated ejection fraction is greater than 65%. Abnormal left ventricular diastolic function is observed. Left Atrium: The left atrium is severely dilated.very severely dilated with bowing of the LA from left to right suggestive of elevated LA pressure Right Ventricle: The right ventricular chamber size and systolic function are within normal limits. Right Atrium: The right atrium is mildly dilated. Aortic Valve: The aortic valve is trileaflet. The aortic valve leaflets are moderately thickened. There is evidence of aortic sclerosis without stenosis. There is mild to moderate aortic regurgitation. There is no evidence of aortic stenosis. The measured aortic regurgitation pressure half-time is 402 msec. Mitral Valve: Severe mitral annular calcification present.posterior predominant The mitral valve leaflets are mildly thickened. There is mild mitral regurgitation. There is no evidence of mitral stenosis. Tricuspid Valve: The tricuspid valve leaflets are mildly thickened. There is mild tricuspid regurgitation. There is evidence of moderate pulmonary hypertension. There is no tricuspid stenosis. Pulmonic Valve: The pulmonic valve appears normal. There is mild pulmonic regurgitation. There is no pulmonic stenosis. Pericardium: There is no significant pericardial effusion. Aorta: There is no dilatation of the ascending aorta. There is no dilatation of the aortic arch. There is no dilation of the aortic root. Pulmonary Artery: The main pulmonary artery is not well visualized. Venous: The inferior vena cava is dilated. There is less than 50% respiratory change in the inferior vena cava dimension. Conclusions The left ventricular chamber size is normal. Mild concentric left ventricular hypertrophy is observed. Global left ventricular wall motion and contractility are within normal limits. There is normal left ventricular systolic function. The estimated ejection fraction is 65-70% The left atrium is very severely dilated with bowing of the interatrial septum from left to right suggestive of elevated LA pressure. In the absence of LV systolic dysfunction or severe mitral/aortic disease, this is most commonly related to advanced diastolic dysfunction There is mild to moderate aortic regurgitation. There is mild mitral regurgitation. There is evidence of moderate pulmonary hypertension. Compared to prior study from 05/2017, no clinically significant changes noted Measurements Name Value Normal Range RVIDd (AP) 2D 2.6 cm (0.9 - 2.6) RVDdMajor (2D) 3.1 cm (2.2 - 4.4) RAd ISD 4CH 5.3 cm (3.4 - 4.9) RA (A4C)W 3.7 cm (2.9 - 4.6) IVSd (2D) 1.2 cm (0.6 - 1) LVPWd (2D) 1.2 cm (0.6 - 1) LVIDd (2D) 4 cm (3.6 - 5.4) LVIDs (2D) 2.4 cm - LV FS (2D) 40 % (25 - 45) Aortic Annulus 1.6 cm (1.4 - 2.6) Ao root diameter (2D) 2.5 cm (2.1 - 3.5) Ascending Ao 3.2 cm (2.1 - 3.4) Aortic arch 3 cm (1.8 - 3.4) LAd ISD 4CH 6.4 cm (2.9 - 5.3) LA ISD 4CH W 5.6 cm (2.5 - 4.5) Name Value Normal Range LA ESV SP 4CH (A/L) 121 ml - LA ESV SP 2CH (A/L) 103 ml - LA ESV BP (A/L) 114 ml - LA ESV BP (A/L) index 74.8 ml/m2 - LA ESV SP 4CH (MOD) 115 ml - LA ESV SP 2CH (MOD) 101 ml - Name Value Normal Range MV E-wave Vmax 0.91 m/sec - MV deceleration time 277 msec - MV A-wave Vmax 1.1 m/sec - MV E:A ratio 0.8 ratio - LV septal e' Vmax 0.06 m/sec - LV lateral e' Vmax 0.07 m/sec - LV E:e' septal ratio 15.2 ratio - LV E:e' lateral ratio 13 ratio - Name Value Normal Range AV Vmax 1.9 m/sec - AV VTI 37.9 cm - AV peak gradient 14 mmHg - AV mean gradient 7 mmHg - LVOT diameter 1.8 cm - LVOT Vmax 1.1 m/sec - LVOT VTI 22.4 cm - LVOT peak gradient 5 mmHg - LVOT mean gradient 2 mmHg - DOI (VTI) 0.59 ratio - DOI (Vmax) 0.58 ratio - DANIELLE (continuity Vmax) 1.5 cm2 - DANIELLE (continuity VTI) 1.5 cm2 - AR PHT 402 msec - ZACKARY Vmax 0.53 m/sec - Name Value Normal Range TR Vmax 3.2 m/sec - TR peak gradient 41 mmHg - RAP 15 mmHg - RVSP 56 mmHg - IVC diameter 2.8 cm - Name Value Normal Range PV Vmax 1.1 m/sec -
--- NOTE | 2018-04-04 19:27 | HP ---
HISTORY AND PHYSICAL: DATE OF ADMISSION: 04/04/18 HISTORY OF PRESENT ILLNESS: Belia Francisco is an 83-year-old woman admitted with shortness of breath likely due to congestive heart failure in the setting of sodium chloride therapy for hyponatremia. The patient has recently been on sodium chloride tablets for hyponatremia. She had been running sodiums in the low 120s, normalized her sodium recently. She was told to cut back from 1 g 4 times a day to 1 g twice a day. She went to bed last night feeling all right. She had had mild shortness of breath over the last couple of days. When she woke up this morning, she got acutely short of breath trying to go to the bathroom. She called her daughter who called 911 and she is being admitted at this time. Of note, the patient does wear oxygen at night. She has been doing this for some time. She was wearing oxygen today when the ambulance came with her oxygen saturation in the mid 80s. In the emergency room, she was given a dose of furosemide 20 mg IV and had started to diurese. She is wearing oxygen and is feeling somewhat better. The feeling was that she would need a few days of hospitalization to stabilize her volume status. PAST MEDICAL HISTORY: Significant for the following medical problems: 1. History of lung cancer status post surgery, chemotherapy and radiation. 2. Hypothyroidism with recent TSH being normal. 3. Hypertension. 4. History of GERD. 5. Hyperlipidemia, treated. 6. History of falling and recent lacerations to her arms and legs. 7. Current ulcer on left lower extremity which is being dressed every other day. 8. Chronic venous insufficiency of the lower extremities. 9. Osteoarthritis. 10. History of frequent urinary tract infections. 11. History of subarachnoid hemorrhage in 2013 due to a mechanical fall. 12. 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 13. History of CVA. PAST SURGICAL HISTORY: 1. Right eye surgery for retinal tear with bleeding causing loss of vision of the right eye. 2. Status post tonsillectomy. 3. Total abdominal hysterectomy. 4. Status post bilateral knee replacements, 2000 and 2009. 5. 2004, left lower lung lobectomy. 6. 2009, right lower lung lobectomy. 7. 2011, kyphoplasty. MEDICATIONS: Current medications are: 1. Sodium chloride 1 g twice a day. 2. Doxazosin 1 mg twice a day. 3. Levothyroxine 50 mcg every day. 4. Lipitor 20 mg at bedtime. 5. Lisinopril 10 mg every day. 6. Amlodipine 2.5 mg every day. 7. Metoprolol succinate 50 mg twice a day. 8. Polyethylene glycol 3350, 17 g powder packet 1 packet every day. 9. Aspirin 81 mg daily. 10. Aleve 220 mg twice a day as needed for pain. 11. Multivitamins 1 a day. 12. Caltrate with D 1 tablet twice a day. 13. Milk of magnesia 30 mL daily p.r.n. constipation. 14. Nexium 24HR 1 capsule every day. ALLERGIES: LATEX. HABITS: Tobacco: The patient is a former smoker, not smoking at present. EtOH : History of alcohol abuse in the past, has not drank in 5 years. Caffeine: Three cups a day. FAMILY HISTORY: Father lung cancer and colon cancer. Mother having hypertension, CA, CVA. She has a daughter with breast cancer. SOCIAL AND PERSONAL HISTORY: The patient is retired. She is living with her daughter in the area. Previously lived in [place] for 35 years. REVIEW OF SYSTEMS: Generally, she had been feeling okay. Her appetite is good. She never sleeps well. Skin: See above. HEENT: She has diminished vision in the left eye and no vision in the right eye. Nodes: Negative. Heme : She bleeds and bruises easily. Breasts: Negative. Endocrine: She is on thyroid medication. Respiratory: SALINAS (see above). She sees Dr. Blount for her pulmonary issues. Cardiovascular: She denies chest pain, palpitations. GI: She tends towards constipation, takes MiraLAX. : History of urinary tract infection. Nocturia x2. Musculoskeletal: She has osteoarthritis, pain in the right wrist. Neuro: She has frequent headaches when she does not sleep well. She has some short-term memory loss. Psychiatric: She is anxious, worries at times. We had tried her on Prozac, but it caused hyponatremia worsening, so this was stopped recently. PHYSICAL EXAMINATION GENERAL: She is an elderly white female, in no acute distress. When I came to the room, she was just getting up from the commode as she was urinating from having received furosemide. She is in no acute distress. She is being seen with her daughter. VITAL SIGNS: Blood pressure on admission to the ER 169/78, pulse 76, respirations 18, temperature 98.1. HEENT: Atraumatic, normocephalic. Full EOMs. She has an eccentric right pupil , vision right eye. Left pupil small, reactive. Mouth: Pharynx is unremarkable. Mucous membranes are moist. NECK: Supple with jugular venous distention and positive hepatojugular reflux. CHEST: Shows rales at the left base and one third way up on the right. HEART: Normal S1, S2. There are no murmurs, gallops, or rubs. ABDOMEN: Soft, nontender. There are no masses, organomegaly. Bowel sounds are active. EXTREMITIES: Show 1+ edema on the left and trace edema on the right. NEUROLOGIC: Without gross focal or lateralizing signs. SKIN: Warm and dry. She has a superficial abrasion/healing ulcer on her left anterior estevez, lower leg. DIAGNOSTIC STUDIES/LAB DATA: CBC: WBC 4.7, H and H 10.6/32, MCV 90, PLT 279, 000. PTT 28.7, D-dimer is 714. Chemistries: Sodium 138, potassium 4.2, chloride 103, CO2 of 33, BUN and creatinine 17/0.47, glucose 111. Lactic acid 0.5. Rest of her comprehensive metabolic panel was within normal limits. C- reactive protein was slightly elevated at 12.21. Troponins x2 were 0.03, 0.03. BNP 454 slightly elevated. Urinalysis; yellow, clear, specific gravity 1.014 , pH 7. Dipstick is positive for trace leukocyte esterase, squamous epithelial cells present, otherwise unremarkable. Chest x-ray shows bilateral infiltrates suggestive of congestive heart failure. EKG shows sinus rhythm, probable LVH, left atrial enlargement. IMPRESSION: The patient with volume overload/congestive heart failure, probably diastolic related to volume overload from sodium chloride tablets. She will continue to get diuretics. We will hold the sodium chloride. She will get DVT prophylaxis with heparin. I will repeat her echocardiogram. She is DNR per her wishes. A new MOLST form was filled out. She does not have a copy of her MOLST form. She is to be on a low sodium diet. She will have oxygen as needed. [id number]/[facility] #: [id number] [facility]
[2018-04-04] MEDS: Metoprolol Succinate XL TAB* 50 MG PO SCH (21:13)
[2018-04-04] MEDS: Atorvastatin* 20 MG TAB PO SCH (21:13)
[2018-04-04] MEDS: Doxazosin TAB* 2 MG PO SCH (22:07)
[2018-04-05] MEDS: Levothyroxine TAB* 50 MCG TAB PO SCH (05:53)
[2018-04-05] MEDS: Heparin VIAL(*) 5000 UNITS/ML VIAL (FIVE THOUSAND) SUBCUT SCH ×3 (05:53→21:16)
[2018-04-05 08:02] LABS: EGFR Non-African American 117.8 (>60)
[2018-04-05] MEDS: Aspirin 81 mg CHEW TAB* 81 MG TAB.CHEW PO SCH (08:53)
[2018-04-05] MEDS: Metoprolol Succinate XL TAB* 50 MG PO SCH ×2 (08:53→20:53)
[2018-04-05] MEDS: Polyethylene Glycol 3350* 17 GM PACKET PO SCH (08:53)
[2018-04-05] MEDS: Omeprazole CAP* 20 MG PO SCH (08:55)
[2018-04-05] MEDS: Lisinopril TAB* 10 MG PO SCH (08:56)
[2018-04-05] MEDS: amLODIPine TAB* 5 MG PO SCH (08:56)
[2018-04-05] MEDS: Doxazosin TAB* 2 MG PO SCH ×2 (08:56→20:53)
[2018-04-05] MEDS ORDERED: Magnesium Sulfate 2 GM IV* 2 GM/50 ML BAG IVPB ONE (09:31)
[2018-04-05] MEDS: Furosemide IV* 10 MG/ML VIAL (40 MG) IV SCH (10:12)
[2018-04-05] MEDS: Atorvastatin* 20 MG TAB PO SCH (20:53)
[2018-04-06] MEDS: Heparin VIAL(*) 5000 UNITS/ML VIAL (FIVE THOUSAND) SUBCUT SCH ×3 (05:55→21:25)
[2018-04-06] MEDS: Levothyroxine TAB* 50 MCG TAB PO SCH (05:55)
[2018-04-06 07:00] LABS: EGFR Non-African American 95.5 (>60)
[2018-04-06] MEDS: Furosemide IV* 10 MG/ML VIAL (40 MG) IV SCH (07:55)
[2018-04-06] MEDS: Aspirin 81 mg CHEW TAB* 81 MG TAB.CHEW PO SCH (07:56)
[2018-04-06] MEDS: Metoprolol Succinate XL TAB* 50 MG PO SCH ×2 (07:56→20:11)
[2018-04-06] MEDS: Lisinopril TAB* 10 MG PO SCH (07:56)
[2018-04-06] MEDS: amLODIPine TAB* 5 MG PO SCH (07:56)
[2018-04-06] MEDS: Doxazosin TAB* 2 MG PO SCH ×2 (07:57→20:11)
[2018-04-06] MEDS: Omeprazole CAP* 20 MG PO SCH (07:58)
[2018-04-06] MEDS: Polyethylene Glycol 3350* 17 GM PACKET PO SCH (07:59)
[2018-04-06] MEDS ORDERED: Magnesium Sulfate 2 GM IV* 2 GM/50 ML BAG IVPB ONE (09:17)
[2018-04-06] MEDS: Atorvastatin* 20 MG TAB PO SCH (20:11)
[2018-04-06] MEDS ORDERED: diPHENhydraMINE PO* 25 MG PO ONE (22:00)
[2018-04-07] MEDS: Heparin VIAL(*) 5000 UNITS/ML VIAL (FIVE THOUSAND) SUBCUT SCH ×3 (05:51→20:56)
[2018-04-07] MEDS: Levothyroxine TAB* 50 MCG TAB PO SCH (05:51)
[2018-04-07 06:01] LABS: ABS Basophils 0 10^3/ul (0-0.2); ABS Eosinophils 0.2 10^3/ul (0-0.6); ABS Lymphocytes 0.8 10^3/ul (1.0-4.8); ABS Monocytes 0.4 10^3/ul (0-0.8); ABS Neutrophils 2.8 10^3/ul (1.5-7.7); ABS Nucleated RBC 0 10^3/ul; Eosinophil % 3.7 % (0-6); Hematocrit 30 % (35-47); Hemoglobin 10.5 g/dl (12.0-16.0); Lymphocyte % 19.1 % (25-47); Mean Corpuscular HGB Conc 35 g/dl (31-36); Mean Corpuscular Hemoglobin 31 pg (27-31); Mean Corpuscular Volume 89 fL (80-97); Mean Platelet Volume 6.7 fL (7.4-10.4); Nucleated Red Blood Cells % 0.1; Platelet Count 265 10^3/ul (150-450); Red Blood Count 3.42 10^6/ul (4.00-5.40); Red Cell Distribution Width 14 % (10.5-15); White Blood Count 4.2 10^3/ul (3.5-10.8)
[2018-04-07 06:23] LABS: EGFR Non-African American 97.3 (>60)
[2018-04-07] MEDS: amLODIPine TAB* 5 MG PO SCH (08:28)
[2018-04-07] MEDS: Polyethylene Glycol 3350* 17 GM PACKET PO SCH (08:28)
[2018-04-07] MEDS: Doxazosin TAB* 2 MG PO SCH ×2 (08:30→21:41)
[2018-04-07] MEDS: Metoprolol Succinate XL TAB* 50 MG PO SCH ×2 (08:30→21:41)
[2018-04-07] MEDS: Omeprazole CAP* 20 MG PO SCH (08:30)
[2018-04-07] MEDS: Lisinopril TAB* 10 MG PO SCH (08:31)
[2018-04-07] MEDS: Aspirin 81 mg CHEW TAB* 81 MG TAB.CHEW PO SCH (08:31)
[2018-04-07] MEDS: Furosemide TAB* 40 MG PO SCH (08:31)
--- NOTE | 2018-04-07 09:32 | PN ---
Subjective - Subjective Reason for Note: Progress Note History: She is feeling much better today. She has no dyspnea or chest discomfort. She is not coughing. Her leg is not hurting. She has good appetite. Active Problems: Active Problems Hyponatremia (Acute) E87.1 Chronic problem, exacerbated by increased po intake with dx of UTI. Fluid restriction ordered. BMP 4 PM 12/12, 6 AM 12/13. 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 HTN (hypertension) (Chronic) I10 - Continue metoprolol, lisinopril, doxazosin. History of CVA (cerebrovascular accident) (Chronic) Z86.73 History of lung cancer (Chronic) Z85.118 Hyperlipidemia (Chronic) E78.5 - Atorvastatin. Hypothyroidism (Chronic) E03.9 TSH add on requested. - Continue Levothyroxine. Ulcer of left lower leg (Chronic) L97.929 Current Medications: Current Medications Amlodipine Besylate (Norvasc Tab*) 2.5 mg PO DAILY [facility] Last Admin: 04/07/18 08:28 Dose: 2.5 mg Aspirin (Aspirin 81 Mg Chew Tab*) 81 mg PO DAILY [facility] Last Admin: 04/07/18 08:31 Dose: 81 mg Atorvastatin Calcium (Lipitor*) 20 mg PO BEDTIME [facility] Last Admin: 04/06/18 20:11 Dose: 20 mg Doxazosin Mesylate (Cardura Tab*) 1 mg PO BID [facility] Last Admin: 04/07/18 08:30 Dose: 1 mg Furosemide (Lasix Tab*) 40 mg PO DAILY [facility] Last Admin: 04/07/18 08:31 Dose: 40 mg Heparin Sodium (Porcine) (Heparin Vial(*)) 5,000 units SUBCUT Q8HR [facility] Last Admin: 04/07/18 05:51 Dose: 5,000 units Levothyroxine Sodium (Synthroid Tab*) 50 mcg PO 0600 [facility] Last Admin: 04/07/18 05:51 Dose: 50 mcg Lisinopril (Prinivil Tab*) 10 mg PO DAILY [facility] Last Admin: 04/07/18 08:31 Dose: 10 mg Metoprolol Succinate (Toprol Xl Tab*) 50 mg PO BID [facility] Last Admin: 04/07/18 08:30 Dose: 50 mg Omeprazole (Prilosec Cap*) 20 mg PO DAILY [facility]; Protocol Last Admin: 04/07/18 08:30 Dose: 20 mg Polyethylene Glycol/Electrolytes (Miralax*) 17 gm PO DAILY [facility] Last Admin: 04/07/18 08:28 Dose: 17 gm Home Medications: Home Medications Medication Instructions Recorded Confirmed Type Atorvastatin* [Lipitor 20 MG*] 20 mg PO BEDTIME 12/21/15 04/04/18 History Levothyroxine TAB* [Synthroid TAB*] 50 mcg PO DAILY 12/21/15 04/04/18 History Metoprolol Succinate XL TAB* 50 mg PO BID 12/21/15 04/04/18 History [Toprol XL TAB*] Doxazosin TAB* [Cardura TAB*] 1 mg PO BID 11/19/17 04/04/18 History Esomeprazole(NF) [Nexium(NF)] 20 mg PO DAILY 11/19/17 04/04/18 History Lisinopril TAB* [Prinivil TAB 10 10 mg PO DAILY 11/19/17 04/04/18 History MG*] Polyethylene Glycol 3350* 17 gm PO DAILY 11/19/17 04/04/18 History [Miralax*] amLODIPine TAB* [Norvasc 5 mg TAB*] 2.5 mg PO DAILY 11/19/17 04/04/18 History Ibuprofen TAB* [Advil TAB*] 400 mg PO Q6HR PRN 12/01/17 04/04/18 History Naproxen Sodium [Aleve] 440 mg PO BID PRN 12/01/17 04/04/18 History Bacitracin OINTMENT* 1 applic TOPICAL BID #1 tube 03/27/18 04/04/18 Rx Cephalexin CAP* [Keflex CAP*] 500 mg PO TID #21 cap 03/27/18 04/04/18 Rx Allergies: Allergies Allergy/AdvReac Type Severity Reaction Status Date / Time latex Allergy Rash Verified 04/04/18 08:09 Objective - Vital Signs Vital Signs: Vital Signs 04/06/18 04/06/18 04/06/18 11:54 15:17 17:52 Temperature 98.5 F 97.9 F Pulse Rate 62 70 Respiratory 16 20 Rate Blood Pressure 123/54 105/42 125/52 (mmHg) O2 Sat by Pulse 100 99 Oximetry 04/06/18 04/06/18 04/06/18 19:41 20:00 22:21 Temperature 98.0 F Pulse Rate 71 Respiratory 20 16 16 Rate Blood Pressure 111/55 (mmHg) O2 Sat by Pulse 99 Oximetry 04/06/18 04/07/18 04/07/18 22:55 01:30 02:31 Temperature 98.2 F 97.8 F Pulse Rate 64 68 Respiratory 12 16 12 Rate Blood Pressure 109/46 143/66 (mmHg) O2 Sat by Pulse 100 94 Oximetry 04/07/18 07:25 Temperature 97.8 F Pulse Rate 64 Respiratory 18 Rate Blood Pressure 141/59 (mmHg) O2 Sat by Pulse 100 Oximetry - Intake and Output Intake and Output: Intake & Output 04/04/18 04/05/18 04/06/18 04/07/18 11:59 11:59 11:59 11:59 Intake Total 1140 1290 830 Output Total 100 600 300 Balance 1040 690 530 Weight 125 lb 126 lb 14.4 oz 128 lb 1.6 oz 120 lb 3.2 oz Intake: Oral 1140 1290 830 Output: Urine 100 600 300 Other: Estimated Void Large Large Date of Last Bowel 04/07/18 Movement # Bowel Movements 0 0 1 Estimated Stool Amount Small Small # Voids 1 1 2 ADLs: Meal Record Start: 04/04/18 12: 29 Freq: DAILY@0900,1400,1800 Status: Active Protocol: Created 04/04/18 12:29 System (Rec: 04/04/18 12:29 System MED-C09) Document 04/04/18 18:00 [id number] (Rec: 04/04/18 18:16 [id number] MED-C09) Document 04/05/18 09:00 [id number] (Rec: 04/05/18 14:07 [id number] MED-C09) Document 04/05/18 14:00 [id number] (Rec: 04/05/18 14:07 [id number] MED-C09) Document 04/05/18 18:00 [id number] (Rec: 04/05/18 22:13 [id number] MED-C02) Document 04/06/18 09:00 [id number] (Rec: 04/06/18 10:55 [id number] MED-C11) Document 04/06/18 13:39 [id number] (Rec: 04/06/18 13:40 [id number] MED-C11) Document 04/06/18 18:00 [id number] (Rec: 04/06/18 22:35 [id number] MED-C09) Document 04/07/18 00:39 [id number] (Rec: 04/07/18 00:40 [id number] MED-C11) Intake and Output Start: 04/04/18 08: 08 Freq: Status: Active Protocol: Created 04/04/18 08:08 System (Rec: 04/04/18 08:08 System [id number]) Intake and Output Start: 04/04/18 12: 29 Freq: DAILY@0600,1400,2200 Status: Active Protocol: Created 04/04/18 12:29 System (Rec: 04/04/18 12:29 System MED-C09) Document 04/04/18 23:00 [id number] (Rec: 04/05/18 00:11 [id number] MED-C03) Document 04/05/18 06:00 [id number] (Rec: 04/05/18 06:18 [id number] MED-C11) Document 04/05/18 08:44 [id number] (Rec: 04/05/18 08:44 [id number] MED-M02) Document 04/05/18 14:00 [id number] (Rec: 04/05/18 14:07 [id number] MED-C09) Document 04/05/18 22:00 [id number] (Rec: 04/05/18 22:19 [id number] MED-C02) Document 04/06/18 05:53 [id number] (Rec: 04/06/18 05:57 [id number] MED-C02) Document 04/06/18 13:39 [id number] (Rec: 04/06/18 13:40 [id number] MED-C11) Document 04/06/18 22:00 [id number] (Rec: 04/06/18 22:38 [id number] MED-C09) Document 04/07/18 02:56 [id number] (Rec: 04/07/18 02:56 [id number] MED-C11) - Physical Exam General Physical Exam Comment: Warm and well perfused - in no distress. Alert, oriented, conversational and interested in her medical problems General: No Cyanosis, No Anemia, No Jaundice, No Clubbing Lungs and Chest: Yes: Chest Expansion Full, Chest Expansion Symetrica, Percussion Note Resonant, Vessicular Breath Sounds. No: Crackles, Wheezes Heart Rate and Rhythm: Regular Additional Cardiovascular: Yes: Normal Heart Sounds. No: Heart Murmur, Pedal Edema Abdominal Exam: Yes: Soft. No: Distention, Abdominal Tenderness Results - Results Lab Results: Laboratory Results - last 24 hr 04/06/18 04/07/18 04/07/18 06:31 05:24 05:24 WBC 4.2 RBC 3.42 L Hgb 10.5 L Hct 30 L MCV 89 MCH 31 MCHC 35 RDW 14 Plt Count 265 MPV 6.7 L Neut % (Auto) 66.0 Lymph % (Auto) 19.1 L Quay % (Auto) 10.5 H Eos % (Auto) 3.7 Baso % (Auto) 0.7 Absolute Neuts (auto) 2.8 Absolute Lymphs (auto) 0.8 L Absolute Monos (auto) 0.4 Absolute Eos (auto) 0.2 Absolute Basos (auto) 0 Absolute Nucleated RBC 0 Nucleated RBC % 0.1 Sodium 134 L 135 Potassium 4.4 4.1 Chloride 97 L 97 L Carbon Dioxide 37 H 36 H Anion Gap 2 BUN 16 19 Creatinine 0.60 0.59 Est GFR ( Amer) 115.5 117.8 Est GFR (Non-Af Amer) 95.5 97.3 BUN/Creatinine Ratio 26.7 H 32.2 H Glucose 98 89 Calcium 9.1 9.0 Magnesium 1.7 L 1.9 C-Reactive Protein 6.11 B-Natriuretic Peptide 04/07/18 05:24 WBC RBC Hgb Hct MCV MCH MCHC RDW Plt Count MPV Neut % (Auto) Lymph % (Auto) Quay % (Auto) Eos % (Auto) Baso % (Auto) Absolute Neuts (auto) Absolute Lymphs (auto) Absolute Monos (auto) Absolute Eos (auto) Absolute Basos (auto) Absolute Nucleated RBC Nucleated RBC % Sodium Potassium Chloride Carbon Dioxide Anion Gap BUN Creatinine Est GFR ( Amer) Est GFR (Non-Af Amer) BUN/Creatinine Ratio Glucose Calcium Magnesium C-Reactive Protein B-Natriuretic Peptide 190 H Assessment - Problem List Assessment: Patient Problems Hyponatremia (Acute) SIADH (syndrome of inappropriate ADH production) (Acute) Volume overload (Acute) DVT prophylaxis (Chronic) HTN (hypertension) (Chronic) History of CVA (cerebrovascular accident) (Chronic) History of lung cancer (Chronic) Hyperlipidemia (Chronic) Hypothyroidism (Chronic) Ulcer of left lower leg (Chronic) UTI (urinary tract infection) (Acute) Fall (Chronic) Plan: Hyponatremia (Acute)SIADH (syndrome of inappropriate ADH production) (Acute) Volume overload (Acute) She is recovering well. She no longer has dyspnea. She is mobilizing. Ulcer of left lower leg (Chronic) I didn't take off her dressing DVT prophylaxis (Chronic) HTN (hypertension) (Chronic) on target History of CVA (cerebrovascular accident) (Chronic) History of lung cancer (Chronic) Hyperlipidemia (Chronic) secondary diagnosis Hypothyroidism (Chronic) Secondary diagnosis She is currently not taking medication that cause SIADH. She has no evidence of recurrence of her lung cancer (though this is a possible cause of her SIADH and may be the first sign of a problem). She needs to cut back on the diuretic. The optimal management is total daily water restriction. I educated the patient about the nature of SIADH and provided her with 2 articles to read ( https://en.wikipedia.org/wiki/Syndrome_of_inappropriate_antidiuretic_hormone_ secretion, https://medlineplus.gov/ency/article/595614.htm). I answered questions.
[2018-04-07] MEDS: TRIAMCINOLONE 0.1% TOPICAL PRN ×2 (15:54→20:56)
[2018-04-07] MEDS: Atorvastatin* 20 MG TAB PO SCH (20:56)
[2018-04-08] MEDS: Levothyroxine TAB* 50 MCG TAB PO SCH (05:56)
[2018-04-08] MEDS: Heparin VIAL(*) 5000 UNITS/ML VIAL (FIVE THOUSAND) SUBCUT SCH (05:56)
[2018-04-08 07:02] LABS: EGFR Non-African American 105.6 (>60)
[2018-04-08] MEDS: Polyethylene Glycol 3350* 17 GM PACKET PO SCH (08:52)
[2018-04-08] MEDS: Metoprolol Succinate XL TAB* 50 MG PO SCH (08:52)
[2018-04-08] MEDS: Doxazosin TAB* 2 MG PO SCH (08:53)
[2018-04-08] MEDS: Lisinopril TAB* 10 MG PO SCH (08:54)
[2018-04-08] MEDS: Aspirin 81 mg CHEW TAB* 81 MG TAB.CHEW PO SCH (08:54)
[2018-04-08] MEDS: Furosemide TAB* 40 MG PO SCH (08:54)
[2018-04-08] MEDS: amLODIPine TAB* 5 MG PO SCH (08:54)
[2018-04-08] MEDS: Omeprazole CAP* 20 MG PO SCH (08:54)
[2018-04-08 12:20] VITALS: BP 133/59
== END 2018-04-08 15:30 | disposition home or self-care (01) | DRG 292 ==
LOC: ED 08:01 → MED 11:04
PROVIDERS: ADMIT Internal Medicine Geriatric Medicine; ATTEND Internal Medicine Geriatric Medicine
DX: I11.0 Hypertensive heart disease with heart failure (principal); L97.929 Non-pressure chronic ulcer of unspecified part of left lower leg with unspecified severity; E87.1 Hypo-osmolality and hyponatremia; I50.33 Acute on chronic diastolic (congestive) heart failure; Z66 Do not resuscitate; E83.42 Hypomagnesemia; K21.9 Gastro-esophageal reflux disease without esophagitis; H54.61 Unqualified visual loss, right eye, normal vision left eye; I87.2 Venous insufficiency (chronic) (peripheral); M19.90 Unspecified osteoarthritis, unspecified site; E87.70 Fluid overload, unspecified; Z96.653 Presence of artificial knee joint, bilateral; E78.00 Pure hypercholesterolemia, unspecified; E03.9 Hypothyroidism, unspecified; Z91.040 Latex allergy status; Z85.118 Personal history of other malignant neoplasm of bronchus and lung; Z92.21 Personal history of antineoplastic chemotherapy; Z98.42 Cataract extraction status, left eye; Z98.41 Cataract extraction status, right eye; Z82.49 Family history of ischemic heart disease and other diseases of the circulatory system; Z82.3 Family history of stroke; Z87.891 Personal history of nicotine dependence; Z91.81 History of falling; Z87.440 Personal history of urinary (tract) infections; Z86.73 Personal history of transient ischemic attack (TIA), and cerebral infarction without residual deficits; Z90.710 Acquired absence of both cervix and uterus; Z80.0 Family history of malignant neoplasm of digestive organs; Z80.1 Family history of malignant neoplasm of trachea, bronchus and lung; Z80.3 Family history of malignant neoplasm of breast; Z99.81 Dependence on supplemental oxygen; R21 Rash and other nonspecific skin eruption
CPT/HCPCS: 36415; 71046; 80048; 80053; 81003; 81015; 82550; 82553; 83605; 83735; 83880; 84484; 85025; 85379; 85730; 86140; 87086; 93005; 93306; 99284; A9270-GY; G8978-GP-CJ; G8979-GP-CI; J1644; J1940; J3475

== ENCOUNTER 2018-07-02 12:09 | Emergency (ER) | payer MEDICARE, OTHER, BC ==
--- OUTSIDE RECORDS SUMMARY | 2018-07-02 12:17 | XMS REPORT | Continuity of Care Document ---
:1935 External Reference #:[id number] Author Name Leonora Mcguire Care Team Providers Name Role Phone Eri Hankins MD Primary Care Physician Unavailable Payers Type Date Identification Numbers Payment Provider Subscriber Policy Number: [id number] Medicare Belia Francisco PayID: [id number] [address] [place] [address] Policy Number: [id number] [facility] Belia Francisco PayID: [id number] [address] [place] [address] Advance Directives Description No Information Available Problems Date Description Provider Status Onset: 05/02/2016 Disturbance in sleep behavior Tsering Blount MD Active Onset: 05/02/2016 Hypoxemia Tsering Blount MD Active Family History Date Family Member(s) Problem(s) Comments General Heart Disease General Hypertension General Stroke General Cancer Cousin and Aunt General Diabetes 2nd Cousin Father Lung Cancer Father Cancer Mother Hypertension Mother Heart Disease Mother Stroke Social History Type Date Description Comments Sex Unknown Marital Status Lives With Daughter Occupation retired ETOH Use Denies alcohol use Tobacco Use Start: Unknown End: Patient is a former smoker Unknown Recreational Drug Use Denies Drug Use Smoking Status Reviewed: 06/06/18 Patient is a former smoker Exercise Type/Frequency Does not exercise Allergies, Adverse Reactions, Alerts Date Description Reaction Status Severity Comments 05/05/2016 Latex Active 12/04/2017 Adhesive Active 12/29/2015 NKDA Inactive Medications Medication Date Status Form Strength Qnty SIG Indications Ordering Provider Oxygen 06/07/ Active Misc 1unit please use o2 R09.02 Tsering 2017 s at 2l/min at [facility], tyler and MD with exertion, rob to portable tanks from portable concentrator Lisinopril 00/00/ Active Tablets 10mg 1 by mouth Unknown 0000 every day Doxazosin 0000/ Active Tablets 1mg take one tab Unknown Mesylate 0000 twice a day Multivitamin & / Active Liquid Unknown Mineral 0000 Synthroid 00/ Active Tablets 50mcg 1 by mouth Unknown 0000 every day Toprol XL 0000/ Active Tablets ER 50mg 1 by mouth Unknown 0000 24HR every day Miralax / Active Powder [id number] 17 gm every Unknown 0000 day mixed w/ 8 oz water/juice Lipitor / Active Tablets 20mg one tab by Unknown 0000 mouth every night at bedtime Calcium 600 00/ Active Tablets 600mg 1 by mouth Unknown 0000 every day Nexium 24HR / Active Tablets DR 20mg 1 by mouth Unknown 0000 every day Aspirin Adult / Active Tablets DR 81mg 1 by mouth Unknown Low Dose 0000 every day Melatonin / Active Tablets ER 3mg 2 tabs po qhs Unknown 0000 Amlodipine / Active Tablets 2.5mg 1 by mouth Unknown Besylate 0000 every day Oxygen 06/02/ Hx Misc 1unit please use o2 Tsering 2017 - s at 2l/min at [facility], 06/07/ night 2018 Keflex / Hx Capsules 500mg one tablet Unknown 0000 - three times a 01/25/ day x 5 days 2016 Immunizations Description No Information Available Vital Signs Date Vital Result Comment 06/06/2018 11:42am Height 60 inches 5'0" Weight 123.00 lb Heart Rate 70 /min BP Systolic Sitting 170 mmHg BP Diastolic Sitting 80 mmHg Respiratory Rate 16 /min O2 % BldC Oximetry 100 % on 1 lpm BMI (Body Mass Index) 24.0 kg/m2 12/05/2017 1:50pm Heart Rate 72 /min Respiratory Rate 18 /min Body Temperature 98.4 F 12/04/2017 1:22pm Height 60 inches 5'0" Weight 127.00 lb Heart Rate 60 /min BP Systolic Sitting 124 mmHg BP Diastolic Sitting 70 mmHg Respiratory Rate 14 /min O2 % BldC Oximetry 99 % BMI (Body Mass Index) 24.8 kg/m2 11/28/2017 2:00pm Heart Rate 72 /min Respiratory Rate 18 /min Body Temperature 97.4 F 11/23/2017 3:24pm Height 60 inches 5'0" Weight 127.00 lb Heart Rate 68 /min BP Systolic 132 mmHg BP Diastolic 64 mmHg Respiratory Rate 16 /min Body Temperature 97.1 F BMI (Body Mass Index) 24.8 kg/m2 06/12/2017 10:01am Height 60 inches 5'0" Weight 128.00 lb Heart Rate 70 /min BP Systolic Sitting 116 mmHg BP Diastolic Sitting 68 mmHg Respiratory Rate 17 /min BMI (Body Mass Index) 25.0 kg/m2 06/07/2017 11:45am Height 60 inches 5'0" Weight 128.00 lb Heart Rate 76 /min BP Systolic Sitting 112 mmHg BP Diastolic Sitting 58 mmHg Respiratory Rate 14 /min O2 % BldC Oximetry 99 % BMI (Body Mass Index) 25.0 kg/m2 07/18/2016 2:29pm Height 60 inches 5'0" Weight 135.00 lb Heart Rate 66 /min BP Systolic 124 mmHg BP Diastolic 60 mmHg Respiratory Rate 14 /min O2 % BldC Oximetry 95 % BMI (Body Mass Index) 26.4 kg/m2 05/19/2016 1:02pm Height 60 inches 5'0" Weight 135.00 lb Pain Level 1 BMI (Body Mass Index) 26.4 kg/m2 05/05/2016 11:59am Height 60 inches 5'0" Weight 135.00 lb Heart Rate 62 /min BP Systolic 147 mmHg BP Diastolic 74 mmHg BMI (Body Mass Index) 26.4 kg/m2 05/02/2016 1:58pm Height 60 inches 5'0" Weight 130.00 lb Heart Rate 63 /min BP Systolic 126 mmHg BP Diastolic 70 mmHg Respiratory Rate 16 /min O2 % BldC Oximetry 97 % BMI (Body Mass Index) 25.4 kg/m2 Neck Circumference in inches 15 2016 11:28am Pain Level 0 12/29/2015 2:29pm Body Temperature 96.9 F 12/29/2015 2:25pm Height 60.5 inches 5'0.50" Weight 134.00 lb BP Systolic 140 mmHg BP Diastolic 80 mmHg Pain Level 0 BMI (Body Mass Index) 25.7 kg/m2 Results Test Date Facility Test Result H/L Range Note Order 06/07/2017 Client Application Support Engineer In-House 6 Minute Walk <pending> CBC Auto Diff 02/08/2017 [facility] White Blood 5.6 10^3/uL N 3.5-10.[address] Count [place] [phone] Red Blood Count 3.69 10^6/uL Low 4.0-5.4 Hemoglobin 11.4 g/dL Low 12.0-16.0 Hematocrit 34 % Low 35-47 Mean Corpuscular Volume 91 fL N 80-97 Mean Corpuscular Hemoglobin 31 pg N 27-31 Mean Corpuscular HGB Conc 34 g/dL N 31-36 Red Cell Distribution Width 14 % N 10.5-15 Platelet Count 217 10^3/uL N 150-450 Mean Platelet Volume 7 um3 Low 7.4-10.4 Abs Neutrophils 4.1 10^3/uL N 1.5-7.7 Abs Lymphocytes 0.9 10^3/uL Low 1.0-4.8 Abs Monocytes 0.4 10^3/uL N 0-0.8 Abs Eosinophils 0.1 10^3/uL N 0-0.6 Abs Basophils 0 10^3/uL N 0-0.2 Abs Nucleated RBC 0 10^3/uL N Granulocyte % 73.1 % N 38-83 Lymphocyte % 16.1 % Low 25-47 Monocyte % 8.0 % N 1-9 Eosinophil % 2.2 % N 0-6 Basophil % 0.6 % N 0-2 Nucleated Red Blood Cells % 0 N Laboratory test 05/31/2016 [facility] Apligraf SEE RESULTS 1, [address] [place] <SEE NOTE> [place] [phone] Laboratory test 05/03/2016 [facility] Apligraf SEE RESULTS [address] [place] <SEE NOTE> [place] [phone] Laboratory test 04/19/2016 [facility] Apligraf SEE RESULTS [address] [place] <SEE NOTE> [place] [phone] Laboratory test 04/05/2016 [facility] Apligraf SEE RESULTS [address] [place] <SEE NOTE> [place] [id number] [phone] 1 FU 2 SEE RESULTS BELOW [id number] APLIGRAF TRANSFUSED 06/01/16 1158 3 SEE RESULTS BELOW [id number] APLIGRAF TRANSFUSED 05/04/16 1056 4 SEE RESULTS BELOW [id number] APLIGRAF TRANSFUSED 04/20/16 1010 5 SEE RESULTS BELOW [id number] APLIGRAF TRANSFUSED 04/06/16 1059 Procedures Date Code Description Status 04/04/2018 87968 ECHO Transthorasic Realtime 2D W Doppler & Color Flow Hosp Completed 06/07/2017 44772 Pulmonary Stress Test Simple Completed 06/07/2017 90170 Pulmonary Stress Testing, Inc Measurement Heart Rate, Completed Oximetry 05/22/2017 71445 ECHO Transthorasic Realtime 2D W Doppler & Color Flow Hosp Completed 05/07/2017 57769 EEG Recording Awake & Asleep Completed 06/01/2016 28698 Application Skin Substitute Graft Trunk,Arms Lets Up To Completed 100 SQ CM 05/25/2016 18512 Removal Devitalization Tissue Wound Less Than Equal 20 Completed Square CM 05/05/2016 95809 Closed TX Metacarpal FX Single W/O Manipulation, Ea Bone Completed 05/04/2016 28150 Application Skin Substitute Graft Trunk,Arms Lets Up To Completed 100 SQ CM 04/27/2016 90768 Removal Devitalization Tissue Wound Less Than Equal 20 Completed Square CM 04/20/2016 72509 Removal Devitalization Tissue Wound Less Than Equal 20 Completed Square CM 04/20/2016 24955 Application Skin Substitute Graft Trunk,Arms Lets Up To Completed 100 SQ CM 04/11/2016 25559 Removal Devitalization Tissue Wound Less Than Equal 20 Completed Square CM 04/11/2016 15388 Debridement Skin,& sq Tissue Completed 04/06/2016 88008 Application Skin Substitute Graft Trunk,Arms Lets Up To Completed 100 SQ CM 04/06/2016 84000 Add'l 25 SQ CM Application Skin Graft Completed 04/06/2016 57964 Removal Devitalization Tissue Wound Less Than Equal 20 Completed Square CM 03/23/2016 07284 Removal Devitalized Tissue Wound Greater Than 20 Square CM Completed 03/23/2016 98908 Removal Devitalization Tissue Wound Less Than Equal 20 Completed Square CM 03/15/2016 96644 Removal Devitalized Tissue Wound Greater Than 20 Square CM Completed 03/15/2016 63431 Removal Devitalization Tissue Wound Less Than Equal 20 Completed Square CM 03/08/2016 14517 Removal Devitalized Tissue Wound Greater Than 20 Square CM Completed 03/08/2016 27420 Removal Devitalization Tissue Wound Less Than Equal 20 Completed Square CM 03/01/2016 53181 Removal Devitalized Tissue Wound Greater Than 20 Square CM Completed 03/01/2016 41571 Removal Devitalization Tissue Wound Less Than Equal 20 Completed Square CM 12/22/2015 41158 Closed TX Articular FX,Invol Metacarpophalangeal Or Completed Interphal JT 11/15/2015 69394 Diffusing Capacity Completed 11/15/2015 15219 Pulmonary Function><Bronchodil Completed 10/05/2015 52039 ECHO Transthoracic, Real-Time 2D With Doppler And Color Completed Flow Encounters Type Date Location Provider Dx Diagnosis Office Visit 12/05/2017 Surgical Kehinde Simmons S80.812D Abrasion, left 2:00p [facility] MD lower leg, subsequent encounter S41.112D Laceration w/o foreign body of left upper arm, subs encntr Office Visit 12/04/2017 1:30p Pulmonology And Tsering R09.02 Hypoxemia [facility] MD [facility] Office Visit 11/28/2017 1:45p Surgical Kehinde Simmons S41.112A Laceration w/o [facility] MD foreign body of left upper arm, init encntr S80.812A Abrasion, left lower leg, initial encounter Office Visit 11/23/2017 Elizabeth Simmons S41.112A Laceration w/o 3:30p [facility] MD Tommy foreign body of [facility] left upper arm, init encntr S80.812A Abrasion, left lower leg, initial encounter W19.xxxA Unspecified fall, initial encounter Office Visit 06/12/2017 10:00a [facility] S. 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 hyponatremia Hospitalists N39.0 Urinary tract infection, site not specified R31.9 Hematuria, unspecified R41.82 Altered mental status, unspecified Office Visit 12/12/2016 [facility] Trino Cortés, E87.1 Hypo-osmolality and 4:01p Assocshawna M.D. hyponatremia Hospitalists N39.0 Urinary tract infection, site not specified R31.9 Hematuria, unspecified R41.82 Altered mental status, unspecified Office Visit 07/18/2016 [facility] R09.02 Hypoxemia 2:30p [facility] MD [facility] Office Visit 06/20/2016 [facility] Parkinson Chronic venous 2:59p [place] [facility] Connors hypertension w ulcer of r low extrem L97.811 Non-prs chr ulcer oth prt r low leg limited to brkdwn skin Office Visit 06/13/2016 2:44p Wound Care Lucio Gottlieb.[facility] Chronic venous Center [place] [facility] [place]di Connors hypertension w ulcer of r low extrem L97.811 Non-prs chr ulcer oth prt r low leg limited to brkdwn skin Office Visit 06/06/2016 9:54a Wound Care Lucio Parkinson Chronic venous Center AT [facility] Cyndi Connors hypertension w ulcer of r low extrem L97.811 Non-prs chr ulcer oth prt r low leg limited to brkdwn skin Office Visit 05/02/2016 2:00p Pulmonology And Tsering G47.9 Sleep disorder, [facility] MD [facility] unspecified [facility] R09.02 Hypoxemia Office Visit 12/29/2015 2:15p Orthopedic k Alvaro, S81.011D Laceration Services Of Cyndi without foreign C.M.A. body, right knee, subs encntr Z48.02 Encounter for removal of sutures Office Visit 12/23/2015 [facility] Mayuri E87.1 Hypo-osmolality and 10:24a Assocshawna M.D. hyponatremia Hospitalists S61.209A Unsp open wound of unsp finger w/o damage to nail, init S63.279A Dislocation of unsp interphaln joint of unsp finger, init S81.011A Laceration without foreign body, right knee, init encntr Office Visit 12/22/2015 [facility] Messina E87.1 Hypo-osmolality and 10:24a Assoc,shawna Yañez M.D. hyponatremia Hospitalists S61.209A Unsp open wound of unsp finger w/o damage to nail, init S63.279A Dislocation of unsp interphaln joint of unsp finger, init S81.011A Laceration without foreign body, right knee, init encntr Office Visit 12/22/2015 7:00a Orthopedic Alba Hiren, S63.282A Disloc of Services Of M.DEliezer proximal C.M.A. interphaln joint of r mid finger, init S62.610A Disp fx of proximal phalanx of right index finger, init S62.611A Disp fx of proximal phalanx of left index finger, init S81.011A Laceration without foreign body, right knee, init encntr W10.1xxA Fall (on)(from) sidewalk curb, initial encounter Office Visit 12/21/2015 [facility] Peter Forbes S81.011A Laceration 10:23a Assoc,shawna NICHOLE M.D. without foreign Hospitalists body, right knee, init encntr S63.279A Dislocation of unsp interphaln joint of unsp finger, init S61.209A Unsp open wound of unsp finger w/o damage to nail, init E87.1 Hypo-osmolality and hyponatremia Plan of Treatment Future Appointment(s):12/09/2018 1:30 pm - Tsering Blount MD at [facility]06/06/2018 - Tsering Blount, MDR09.02 HypoxemiaFollow up:6 months
[2018-07-02 12:46] VITALS: BP 199/84
--- NOTE | 2018-07-02 13:04 | UC ---
UC General HPI - HPI Summary HPI Summary: Pleasant 83 yo female presents c/o I think I have a bladder infection. + freq / urg since last evening. Some dysuria. No yary hematuria. No fever / chills. No new sob / cp. No GI changes. No rash . No new weakness. - History of Current Complaint Chief Complaint: UCGU Stated Complaint: POSS UTI Hx Obtained From: Patient Pain Intensity: 0 - Allergy/Home Medications Allergies/Adverse Reactions: Allergies Allergy/AdvReac Type Severity Reaction Status Date / Time latex Allergy Rash Verified 07/02/18 12:45 tape-latex Allergy Mild Rash Uncoded 07/02/18 12:45 PMH/Surg Hx/FS Hx/Imm Hx Previously Healthy: No - lung surgery Respiratory History: Other - oxygen dependant - Surgical History Surgical History: Yes Surgery Procedure, Year, and Place: BILATERAL LOWER LUNG LOBECTOMY. BILAT TOTAL KNEE REPLACEMENTS. TONSILS. REPAIR PROLAPSED BLADDER. BILATERAL CATARACTS. TORN RETINA IN BILATERAL EYES REPAIR-NO OP REPORT WILL CLEAR WITH ORBIT DX PER DR MOLINA - Family History Known Family History: Positive: Cardiac Disease, Hypertension, Other - Mother - stroke Family History: Mother - stroke - Social History Alcohol Use: Rare Alcohol Amount: smells of alcohol Substance Use Type: None Smoking Status (MU): Former Smoker Type: Cigarettes Household Exposure Type: Cigarettes - Immunization History Most Recent Influenza Vaccination: Fall 2017 Most Recent Tetanus Shot: 12/21/15 Most Recent Pneumonia Vaccination: Unknown but thinks is up to date Review of Systems All Other Systems Reviewed And Are Negative: Yes Constitutional: Positive: Negative Skin: Positive: Negative Eyes: Positive: Negative ENT: Positive: Negative Respiratory: Positive: Other - no new issues Cardiovascular: Positive: Other - no new issues Gastrointestinal: Positive: Negative Genitourinary: Positive: Other - see hpi Motor: Positive: Negative Neurovascular: Positive: Negative Musculoskeletal: Positive: Negative Neurological: Positive: Negative Psychological: Positive: Negative Is Patient Immunocompromised?: No Physical Exam Triage Information Reviewed: Yes Appearance: Well-Appearing - sitting up, Thin Vital Signs: Initial Vital Signs Temp 97.7 F 07/02/18 12:41 Pulse 65 07/02/18 12:41 Resp 18 07/02/18 12:41 BP 199/84 07/02/18 12:41 Pulse Ox 95 07/02/18 12:41 Vital Signs Reviewed: Yes Eye Exam: Normal - grossly normal ENT Exam: Normal - mmm Neck exam: Normal - supple for age Respiratory Exam: Other - BS equal, decreased at bases. No rtx. Cardiovascular Exam: Normal - HR regular, correlates with R radial pulse Abdominal Exam: Normal Abdomen Description: Positive: Nontender Musculoskeletal: Positive: Edema @ - BLE mild dependant edema, d/w pt. Distal warm to touch. Neurological Exam: Normal - nonfocal nad Psychological Exam: Normal Skin Exam: Normal Course/Dx - Course Course Of Treatment: Reviewed last urine cx from Mar 2018 (E coli). Urine dip today noted (see meditech). Suspicious for infection. Cx sent. Will start cefdinir (cephalexin given here prior to d/c). Will f/u PCP. Questions as posed answered to the best of my ability. - Diagnoses Provider Diagnosis: UTI (urinary tract infection), Hematuria Discharge - Sign-Out/Discharge Documenting (check all that apply): Patient Departure All imaging exams completed and their final reports reviewed: No Studies - Discharge Plan Condition: Stable Disposition: HOME Prescriptions: Cefdinir cap* [Cefdinir 300 MG cap (NF)] 300 mg PO BID #14 cap Patient Education Materials: Hematuria (ED), Urinary Tract Infection in Older Adults (ED) Referrals: Eri Hankins MD [Primary Care Provider] - Additional Instructions: Drink plenty of fluids. Seek medical attention for worse or new problems. Follow up with Dr. Hankins - next couple weeks (recheck regarding blood in urine, which likely is related to infection). - Billing Disposition and Condition Condition: STABLE Disposition: Home
[2018-07-02] MEDS ORDERED: Cephalexin CAP* 500 MG PO ONE (13:34)
== END 2018-07-02 13:43 | disposition home or self-care (01) ==
LOC: UCEAST 12:09
DX: N39.0 Urinary tract infection, site not specified (principal); R31.9 Hematuria, unspecified; Z87.891 Personal history of nicotine dependence; Z91.040 Latex allergy status
CPT/HCPCS: 81003; 87077; 87086; 87186; 99212; A9270-GY; G0463

== ENCOUNTER 2018-07-03 08:05 | Inpatient (IN) | payer MEDICARE, BC ==
[2018-07-03] MEDS ORDERED: Tetan/Diph/Pertus SYR(Tdap)* 0.5 ML SYR(BOOSTRIX) use SYR IM ONE (08:09)
[2018-07-03] MEDS ORDERED: Tranexamic Acid 1,000 MG/10 ML SDV ONE ×2 (08:12→08:35)
[2018-07-03] MEDS ORDERED: Tranexamic Acid 1,000 MG/10 ML SDV IV ONE (08:36)
[2018-07-03 08:52] LABS: ABS Basophils 0 10^3/ul (0-0.2); ABS Eosinophils 0 10^3/ul (0-0.6); ABS Lymphocytes 0.4 10^3/ul (1.0-4.8); ABS Monocytes 0.4 10^3/ul (0-0.8); ABS Neutrophils 5.5 10^3/ul (1.5-7.7); ABS Nucleated RBC 0 10^3/ul; Eosinophil % 0.5 %; Hematocrit 33 % (35-47); Hemoglobin 11.3 g/dl (12.0-16.0); Mean Corpuscular HGB Conc 34 g/dl (31-36); Mean Corpuscular Hemoglobin 31 pg (27-31); Mean Corpuscular Volume 90 fL (80-97); Mean Platelet Volume 7.7 fL (7.4-10.4); Nucleated Red Blood Cells % 0; Platelet Count 197 10^3/ul (150-450); Red Blood Count 3.66 10^6/ul (4.00-5.40); Red Cell Distribution Width 14 % (10.5-15); White Blood Count 6.4 10^3/ul (3.5-10.8)
[2018-07-03] MEDS ORDERED: Tranexamic Acid 1,000 MG/10 ML SDV TOPICAL ONE (09:00)
[2018-07-03 09:02] LABS: Activated Partial Thrombo Time 27.6 seconds (26.0-36.3); INR 0.93 (0.77-1.02)
[2018-07-03] MEDS ORDERED: cefTRIAXone(*) 1 GM in NS 0.9% 50 ML* 50 ML IVPB ONE (09:03)
[2018-07-03 09:11] LABS: BUN/Creatinine Ratio 26.7 (8-20); Calcium 9.3 mg/dL (8.6-10.3); EGFR African American 115.5 (>60); EGFR Non-African American 95.5 (>60); Potassium 4.5 mmol/L (3.5-5.0)
--- NOTE | 2018-07-03 09:35 | ED ---
Head Injury - HPI Summary HPI Summary: Patient is an 83-year-old female presenting to the ED by ambulance after a fall at approximately 6:45 this morning. Patient notes she was getting up to use the bathroom when she slipped into a door frame and hit the back side of her head. Patient did not lose consciousness at the time, but was unable to get up. She used her life alert to call for EMS help. She states that she experienced 2 other falls this past evening. She denies any pain upon arrival to the ED, but notes she was experiencing pain to her left side torso she believes to be from one of the previous falls. She notes she was diagnosed with a UTI at urgent care yesterday and placed on antibiotics. She denies headache, lightheadedness, chest pain, dyspnea, or injury to other areas. Currently taking 81 mg asprin daily, as well as otc NSAIDs. Patient has a hx of HTN and thyroid disease. Lives at home alone. - History Of Current Complaint Chief Complaint: EDHeadInjury Stated Complaint: FELL/HEAD INJURY Time Seen by Provider: 07/03/18 08:06 Hx Obtained From: Patient, EMS Mechanism Of Injury: Direct Blow, Fall From A Standing Position Onset/Duration: Started Minutes Ago Severity Currently: Mild Severity Initially: Mild Pain Intensity: 3 Pain Scale Used: 0-10 Numeric Location of Head Injury: Parietal, Occipital Character: Aching Aggravating Factor(s): Movement Alleviating Factor(s): Rest Anticoagulant Therapy: ASA, Other: - NSAID - Risk Factors SDH Risk Factor: Recent Trauma, Anticoagulent Use, Elderly - Allergies/Home Medications Allergies/Adverse Reactions: Allergies Allergy/AdvReac Type Severity Reaction Status Date / Time latex Allergy Rash Verified 07/03/18 08:40 tape-latex Allergy Mild Rash Uncoded 07/02/18 12:45 PMH/Surg Hx/FS Hx/Imm Hx Previously Healthy: Yes Endocrine/Hematology History: Reports: Hx Thyroid Disease Denies: Hx Diabetes, Hx Anemia Cardiovascular History: Reports: Hx Hypercholesterolemia, Hx Hypertension Denies: Hx Pacemaker/ICD Respiratory History: Reports: Hx Lung Cancer - With chemo, Hx Pneumonia, Other Respiratory Problems/Disorders - LUNG CA, LOWER LOBES OF BOTH LUNGS REMOVED Denies: Hx Asthma, Hx Chronic Obstructive Pulmonary Disease (COPD) GI History: Reports: Hx Gastroesophageal Reflux Disease, Hx Ulcer Denies: Hx Gastrointestinal Bleed, Hx Hiatal Hernia, Hx Jaundice History: Denies: Hx Renal Disease Musculoskeletal History: Reports: Hx Arthritis Sensory History: Reports: 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, Hx Eye Injury, Hx Legally Blind - RIGHT EYE, Hx Vision Problem - Can't see out of R eye surgery causes retinal detatchment Denies: Hx Contacts or Glasses, Hx Hearing Aid Opthamlomology History: Reports: 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 BILAT TOTAL KNEE REPLACEMENTS. TONSILS. REPAIR PROLAPSED BLADDER. BILATERAL CATARACTS. TORN RETINA IN BILATERAL EYES REPAIR-NO OP REPORT WILL CLEAR WITH ORBIT DX PER DR MOLINA - Immunization History Date of Tetanus Vaccine: unknown Infectious Disease History: No Infectious Disease History: Denies: Hx Clostridium Difficile, Hx Hepatitis, Hx Human Immunodeficiency Virus (HIV), Hx of Known/Suspected MRSA, Hx Shingles, Hx Tuberculosis, Hx Known/ Suspected VRE, Hx Known/Suspected VRSA, History Other Infectious Disease, Traveled Outside the [place] in Last 30 Days - Family History Known Family History: Positive: Cardiac Disease, Hypertension, Other - Mother - stroke Family History: Mother - stroke - Social History Occupation: Retired Lives: Alone Alcohol Use: Rare Alcohol Amount: smells of alcohol Substance Use Type: Reports: None Smoking Status (MU): Former Smoker Type: Cigarettes Review of Systems Constitutional: Negative Negative: Fever, Chills, Fatigue Eyes: Negative, Other - blind in right eye ENT: Negative Negative: Epistaxis, Dental Pain Cardiovascular: Negative Negative: Palpitations, Chest Pain Positive: Shortness Of Breath. Negative: Cough Gastrointestinal: Negative Negative: Abdominal Pain, Vomiting, Diarrhea, Nausea Positive: other - patient diagnosed with uti yesterday . Negative: burning, pain Positive: Myalgia - Pain to the left side torso Positive: Other - scalp laceration Negative: Headache, Weakness, Numbness, Syncope Psychological: Normal All Other Systems Reviewed And Are Negative: Yes Physical Exam Triage Information Reviewed: Yes Vital Signs On Initial Exam: Initial Vitals BP Pulse Ox 177/95 96 07/03/18 08:11 07/03/18 08:11 Vital Signs Reviewed: Yes Appearance: Positive: Well-Nourished, Signs of Trauma - Scalp laceration with significant amount of bleeding Skin: Positive: Warm, Dry, Other - approximately 3 cm x 0.5 cm laceration to the left posterior-lateral scalp with significant, pulsatile blood loss. Hematoma noted surrounding the wound. Head/Face: Positive: Normal Head/Face Inspection Eyes: Positive: Normal, EOMI. Negative: DWAYNE - Right eye pupil deformed, located inferiorly, and non-reactive to light -- complication of retinal detachment surgery as per patient ENT: Positive: Normal ENT inspection, Hearing grossly normal, Pharynx normal, TMs normal - Left ear with cerumen impaction. Right ear without hemetympanum.. Negative: Nasal congestion, TM red Dental: Positive: Other - dentures noted. Negative: Bleeding Neck: Positive: Supple, Nontender, No Lymphadenopathy Respiratory/Lung Sounds: Positive: Clear to Auscultation, Breath Sounds Present Cardiovascular: Positive: Normal, RRR. Negative: Leg Edema Left, Leg Edema Right Abdomen Description: Positive: Nontender, Soft Bowel Sounds: Positive: Present Musculoskeletal: Positive: Normal, Strength/ROM Intact, Limited @ - Right shoulder ROM limited -- previous rotator cuff injury as per patient, Pain @ - Left side ribcage, Other - No spinal mid-line tenderness. No tenderness to bilateral hips. Strength and flexion of the hips intact. Patient is able to move upper and lower extremities without difficulty. Procedures - Laceration/Wound Repair 1 Location: head - posterior lateral scalp Description: Linear Length, Depth and Shape: approximately 3 cm x 0.5 cm laceration to posterior- lateral scalp Betadine Prep?: No Irrigated w/ Saline (ccs): 200 Laceration/Wound Explored: no foreign body removed Closure: Single Layer - 3-0 prolene , Merlin #__ - 5 Suture Type: Prolene - 3-0 Number of Sutures: 1 Layer Closure?: No Sterile Dressing Applied?: No - wound required placement of jelani following packing/injection with TXA Diagnostics - Vital Signs Vital Signs Temp Pulse Resp BP Pulse Ox 07/03/18 09:00 20 07/03/18 08:56 167/89 98 07/03/18 08:38 97.2 F 68 18 177/95 99 07/03/18 08:11 177/95 96 - Laboratory Lab Results: Lab Results 07/03/18 07/03/18 07/03/18 Range/Units 08:41 08:41 08:41 WBC 6.4 (3.5-10.8) 10^3/ul RBC 3.66 L (4.00-5.40) 10^6/ul Hgb 11.3 L (12.0-16.0) g/dl Hct 33 L (35-47) % MCV 90 (80-97) fL MCH 31 (27-31) pg MCHC 34 (31-36) g/dl RDW 14 (10.5-15) % Plt Count 197 (150-450) 10^3/ul MPV 7.7 (7.4-10.4) fL Neut % (Auto) 87.2 % Lymph % (Auto) 6.0 % [place] % (Auto) 6.0 % Eos % (Auto) 0.5 % Baso % (Auto) 0.3 % Absolute Neuts (auto) 5.5 (1.5-7.7) 10^3/ul Absolute Lymphs (auto) 0.4 L (1.0-4.8) 10^3/ul Absolute Monos (auto) 0.4 (0-0.8) 10^3/ul Absolute Eos (auto) 0 (0-0.6) 10^3/ul Absolute Basos (auto) 0 (0-0.2) 10^3/ul Absolute Nucleated RBC 0 10^3/ul Nucleated RBC % 0 INR (Anticoag Therapy) 0.93 (0.77-1.02) APTT 27.6 (26.0-36.3) seconds Sodium 122 L (135-145) mmol/L Potassium 4.5 (3.5-5.0) mmol/L Chloride 86 L (101-111) mmol/L Carbon Dioxide 31 (22-32) mmol/L Anion Gap 5 (2-11) mmol/L BUN 16 (6-24) mg/dL Creatinine 0.60 (0.51-0.95) mg/dL Est GFR ( Amer) 115.5 (>60) Est GFR (Non-Af Amer) 95.5 (>60) BUN/Creatinine Ratio 26.7 H (8-20) Glucose 103 H (70-100) mg/dL Calcium 9.3 (8.6-10.3) mg/dL Blood Type Antibody Screen 07/03/18 Range/Units 08:41 WBC (3.5-10.8) 10^3/ul RBC (4.00-5.40) 10^6/ul Hgb (12.0-16.0) g/dl Hct (35-47) % MCV (80-97) fL MCH (27-31) pg MCHC (31-36) g/dl RDW (10.5-15) % Plt Count (150-450) 10^3/ul MPV (7.4-10.4) fL Neut % (Auto) % Lymph % (Auto) % [place] % (Auto) % Eos % (Auto) % Baso % (Auto) % Absolute Neuts (auto) (1.5-7.7) 10^3/ul Absolute Lymphs (auto) (1.0-4.8) 10^3/ul Absolute Monos (auto) (0-0.8) 10^3/ul Absolute Eos (auto) (0-0.6) 10^3/ul Absolute Basos (auto) (0-0.2) 10^3/ul Absolute Nucleated RBC 10^3/ul Nucleated RBC % INR (Anticoag Therapy) (0.77-1.02) APTT (26.0-36.3) seconds Sodium (135-145) mmol/L Potassium (3.5-5.0) mmol/L Chloride (101-111) mmol/L Carbon Dioxide (22-32) mmol/L Anion Gap (2-11) mmol/L BUN (6-24) mg/dL Creatinine (0.51-0.95) mg/dL Est GFR ( Amer) (>60) Est GFR (Non-Af Amer) (>60) BUN/Creatinine Ratio (8-20) Glucose (70-100) mg/dL Calcium (8.6-10.3) mg/dL Blood Type A Positive Antibody Screen Pending Result Diagrams: 07/03/18 08:41 07/03/18 08:41 Lab Statement: Any lab studies that have been ordered have been reviewed, and results considered in the medical decision making process. Re-Evaluation - Re-Evaluation First Eval Change: Improved - no ongoing bleeding Head Injury Course/Dx Course Of Treatment: Patient was brought to the ED by EMS this am after sustaining a fall at approximately 6:45. Patient was walking from the bathroom when she fell and hit her head on the door frame. Patient denies LOC, but unable to get up. She noted two other falls that night. Upon arrival patient noted pain to the left torso, but denied any headache, neck pain, or weakness. Patient noted she was diagnosed with a UTI yesterday. Patient has been taking aspirin and NSAIDs. On physical exam patient was noted to have 3 cm laceration to the posterior-lateral scalp with significant pulsatile bleeding. Patient alert and oriented. No focal neurologic deficits noted. bow string maker intact. Tenderness noted to lower back and left torso. Flexion of the hip intact. Topical and IV TXA used. Laceration was cleaned using 200 cc saline. 5 jelani and one 3-0 prolene suture was placed to control bleeding. Low Na (122), hgb (11.3), hct (33 ) noted. No acute findings on brain or spinal CT. Dr. Bowden was contacted regarding this patient, and will be admitted by Dr. Gutierrez. Patient has no ongoing bleeding. This was stopped with injected TXA and staple closure and a placement of a [id number] stitch after failed wound soaking in TXA. - Diagnoses Differential Diagnosis/HQI/PQRI: Hematoma Provider Diagnoses: Laceration of scalp, Multiple falls, Hyponatremia, UTI (urinary tract infection ) - Physician Notifications Discussed Care Of Patient With: Eri Hankins Instructed by Provider To: Admit As Inpatient Admit/Transition Orders Completed By ED Provider: Yes - Critical Care Time Critical Care Time: 30-74 min - Critical care times exclusive of separately billable procedures Discharge - Sign-Out/Discharge Documenting (check all that apply): Patient Departure Signing out patient TO: Wendi Gutierrez - admits - Discharge Plan Condition: Guarded Disposition: ADMITTED TO [facility] Referrals: Eri Hankins MD [Primary Care Provider] - - Billing Disposition and Condition Condition: GUARDED Disposition: Admitted to [facility] - Attestation Statements Document Initiated by Scribe: No
[2018-07-03] MEDS ORDERED: NS 0.9% 1000 ML** 1,000 ML IV SCH (11:45)
[2018-07-03 13:04] LABS: Urine Appearance Cloudy; Urine Bacteria Absent (Absent); Urine Bilirubin Negative (Negative); Urine Blood Negative (Negative); Urine Color Yellow; Urine Glucose Negative (Negative); Urine Ketones Trace (Negative); Urine Nitrite Negative (Negative); Urine Protein Negative (Negative); Urine Red Blood Cell 2+(6-10/hpf) (Absent); Urine Specific Gravity 1.014 (1.010-1.030); Urine Squamous Epithelial Cell Present (Absent); Urine Urobilinogen Negative (Negative); Urine White Blood Cell 3+(>20/hpf) (Absent)
--- NOTE | 2018-07-03 14:44 | HP ---
CC: Dr. Eri Hankins * HISTORY AND PHYSICAL: DATE OF ADMISSION: 07/03/18 PRIMARY CARE PROVIDER: Dr. Eri Hankins. CHIEF COMPLAINT: Status post fall and head laceration. HISTORY OF PRESENT ILLNESS: Belia Francisco is an 83-year-old female with history of frequent falls who slipped on the way of leaving from the bathroom today in the morning. She hit her head on the door frame and sustained a head laceration that caused a hematoma and a fair amount of bleeding before that was able to be contained by Dr. Thompson in the emergency room with stapling the wound. The patient stated that she did not lose consciousness and she simply slipped. The patient has a history of frequent falls and usually she uses a cane and a walker. She also was noted to have left-sided rib fractures on #5 and #6. She is going to be placed on overnight observation with diagnosis of fall, scalp hematoma, and rib fracture. PAST MEDICAL HISTORY: 1. History of frequent falls. 2. History of lung cancer, status post bilateral lung lobectomies and chemotherapy and radiation. 3. History of hypothyroidism. 4. Hypertension. 5. Gastroesophageal reflux disease. 6. Hyperlipidemia. 7. Chronic venous insufficiency changes in bilateral lower extremities and osteoarthritis. 8. History of recurrent urinary tract infections, with the most recent one diagnosed at [facility] yesterday when the patient was placed on cefdinir. 9. History of subarachnoid hemorrhages since 2014, posttraumatic. 10. 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 11. History of CVA. 12. Chronic hyponatremia with sodium at baseline 123 to 122. 13. Chronic hypoxemic respiratory failure with oxygen at 2 L continuously. CURRENT MEDICATIONS: Include: 1. Aspirin 81 mg daily. 2. Cefdinir 300 mg b.i.d., started yesterday. 3. Bacitracin ointment topically b.i.d. p.r.n. 4. Atorvastatin 20 mg at bedtime. 5. Lisinopril 10 mg daily. 6. Levothyroxine 50 mcg daily. 7. Nexium 20 mg daily. 8. Doxazosin 2 mg b.i.d. 9. MiraLAX 17 g daily. 10. Naproxen 220 mg b.i.d. p.r.n. 11. Toprol XL 50 mg b.i.d. 12. Amlodipine 2.5 mg daily. 13. Triamcinolone 0.1% topical ointment b.i.d. p.r.n. ALLERGIES: TAPE and LATEX. FAMILY HISTORY: The patient has history of father with lung cancer and colon cancer. Mother with history of hypertension and CVA. The patient's daughter has a history of breast cancer. SOCIAL HISTORY: The patient has history of remote smoking. She has history of alcohol abuse in the past, but has not drank for several years now. She has ambulatory dysfunction and frequent falls, and she ambulates with a roller walker or a cane. She lives with her daughter, who is her surrogate. As per previous medical records, she was do not resuscitate. REVIEW OF SYSTEMS: Please see history of present illness. Patient has a head laceration that was stapled in the emergency department today. She complains of pain in her left chest, pleuritic, due to the rib fractures. She stated that prior to her fall she had been feeling in her usual state of health. Apart from that, she was evaluated at urgent care center for urinary frequency and was placed on cefdinir yesterday. She stated that her urinary frequency and dysuria is already getting better. All the remaining 12 systems were reviewed with the patient and were, otherwise , negative. PHYSICAL EXAMINATION GENERAL: The patient is a very pleasant 83-year-old female who is in no acute distress. The patient is alert, awake, and oriented x3. VITAL SIGNS: Blood pressure of 133/79, heart rate of 59 and regular, respiratory rate of 24, oxygen saturation 97% on 2 L oxygen nasal cannula, and temperature of 97.2. HEENT: Head with laceration in the left temporal/occipital area, stapled, of approximately 8 cm in length with a rather large hematoma underneath palpable. Eyes: The right pupil is localized at the lower rim of the iris, definitely eccentric, with postsurgical appearing deformation and is nonreactive. The cornea is also cloudy in the right eye. The left eye pupil is at 2 mm reactive to light. Oropharynx is clear. Mucosa moist. NECK: Supple. No JVD. No bruit bilaterally. RESPIRATORY: Clear to auscultation bilaterally. CARDIOVASCULAR: Regular rate and rhythm. No murmur. ABDOMEN: Soft, nontender. Bowel sounds are present in all 4 quadrants. EXTREMITIES: There is +2 pitting pedal edema. There is no clubbing or cyanosis. NEURO EVALUATION: Speech clear. Cranial nerves II through XII grossly intact. Motor strength is 5/5 bilaterally. SKIN: On evaluation of the skin, patient has multiple ecchymotic areas in bilateral lower extremities. She also has a large laceration stapled on her scalp as mentioned above. PSYCHIATRIC EVALUATION: Oriented x3 with no evidence of anxiety or depression. DIAGNOSTIC STUDIES/LAB DATA: Laboratory Data: White blood cell count of 6.4, hemoglobin 11.3, hematocrit 33, and platelets 197. Sodium 122, potassium 0.5, chloride 86, carbon dioxide 31, BUN 16, creatinine 0.6, glucose 103. Coagulation studies were PT/INR of 0.93, PTT of 27.6. Rib cage chest x-ray, impression: "Acute nondisplaced left fifth and sixth rib fractures. Negative for pneumothorax." Patient's C-spine CT, impression: "Multilevel degenerative disk disease, degenerative changes of the atlantoaxial joint with no fracture noted." Brain CT, impression: "No intracranial mass or hemorrhage noted. Chronic ischemic white matter change noted. High-density material replaces the right globe. This is unchanged since prior exam." The patient's EKG shows sinus bradycardia with heart rate of 59 beats per minute with criteria for LVH and rather high-amplitude T waves in V2 to V4. Comparing to an EKG from March 2018, that is similar. ASSESSMENT AND PLAN: An 83-year-old female with history of frequent falls who now presents status post fall with 2 left-sided rib fractures and scalp hematoma. After discussion with Dr. Thompson, patient had a significant amount of bleeding before the hemorrhage could be controlled. At this point, it is expected patient is going to have lower hemoglobin tomorrow. Patient has a chronically unsteady gait and lot of falls in the past. PT is going to be evaluating patient for safety at discharge. Patient is going to be placed on overnight observation. 1. Patient's hyponatremia is chronic. Nevertheless, we will try intravenous fluids to see if the patient responds. 2. Patient has a history of recent diagnosis of urinary tract infection. From the [facility] reports, there are no urine cultures yet available. At this point, patient is going to be placed on ceftriaxone intravenously while in the hospital. 3. In regards to patient's hypertension, patient's outpatient medications are going to be continued. 4. For gastroesophageal reflux disease, Nexium is going to be substituted for Protonix while in the hospital. 5. Due to scalp hematoma, we will not institute anticoagulation for DVT prophylaxis and place the patient on sequential compression devices only. I will also hold patient's aspirin at this point. 6. Patient's code status is do not resuscitate. TIME SPENT: Approximately 65 minutes were spent on history and physical taking of this patient. More than half that time was spent [id number] with the patient during the interview and physical exam. [id number]/[facility] #: [id number] JUSTICE
[2018-07-03] MEDS: Acetaminophen TAB* 325 MG PO PRN (16:15)
[2018-07-03] MEDS: Atorvastatin* 20 MG TAB PO SCH (20:36)
[2018-07-03] MEDS: Doxazosin TAB* 2 MG PO SCH (20:37)
[2018-07-03] MEDS: Bacitracin OINTMENT* 0.5% 0.5 oz TUBE TOPICAL SCH (20:37)
[2018-07-03] MEDS: Metoprolol Succinate XL TAB* 50 MG PO SCH (20:37)
[2018-07-04] MEDS: Levothyroxine TAB* 50 MCG TAB PO SCH (05:25)
[2018-07-04 06:19] LABS: ABS Basophils 0 10^3/ul (0-0.2); ABS Eosinophils 0.1 10^3/ul (0-0.6); ABS Lymphocytes 0.4 10^3/ul (1.0-4.8); ABS Monocytes 0.4 10^3/ul (0-0.8); ABS Neutrophils 3.8 10^3/ul (1.5-7.7); ABS Nucleated RBC 0 10^3/ul; Eosinophil % 1.1 %; Hematocrit 25 % (35-47); Hemoglobin 8.5 g/dl (12.0-16.0); Mean Corpuscular HGB Conc 34 g/dl (31-36); Mean Corpuscular Hemoglobin 31 pg (27-31); Mean Corpuscular Volume 90 fL (80-97); Mean Platelet Volume 7.6 fL (7.4-10.4); Nucleated Red Blood Cells % 0; Platelet Count 153 10^3/ul (150-450); Red Blood Count 2.77 10^6/ul (4.00-5.40); Red Cell Distribution Width 14 % (10.5-15); White Blood Count 4.7 10^3/ul (3.5-10.8)
[2018-07-04 06:42] LABS: Albumin 2.9 g/dL (3.2-5.2); Albumin/Globulin Ratio 1.6 (1-3); BUN/Creatinine Ratio 35.6 (8-20); Calcium 8.4 mg/dL (8.6-10.3); EGFR Non-African American 133.1 (>60); Globulin 1.8 g/dL (2-4); Potassium 4.3 mmol/L (3.5-5.0); Total Bilirubin 0.4 mg/dL (0.2-1.0); Total Protein 4.7 g/dL (6.4-8.9)
[2018-07-04] MEDS: amLODIPine TAB* 5 MG PO SCH (10:28)
[2018-07-04] MEDS: Lisinopril TAB* 10 MG PO SCH (10:28)
[2018-07-04] MEDS: Doxazosin TAB* 2 MG PO SCH ×2 (10:28→20:46)
[2018-07-04] MEDS: Pantoprazole TAB * 40 MG TAB PO SCH (10:28)
[2018-07-04] MEDS: Metoprolol Succinate XL TAB* 50 MG PO SCH ×2 (10:29→20:47)
[2018-07-04] MEDS: Bacitracin OINTMENT* 0.5% 0.5 oz TUBE TOPICAL SCH ×2 (10:29→20:47)
[2018-07-04] MEDS: Polyethylene Glycol 3350* 17 GM PACKET PO SCH (10:30)
[2018-07-04] MEDS: oxyCODONE/Acetamin 5/325 MG* TAB PO PRN ×3 (10:37→20:45)
[2018-07-04] MEDS: cefTRIAXone(*) 1 GM in NS 0.9% 50 ML* 50 ML IVPB SCH (13:15)
[2018-07-04] MEDS: Atorvastatin* 20 MG TAB PO SCH (20:47)
[2018-07-04] MEDS ORDERED: Senna TAB PO PRN (21:11)
[2018-07-05] MEDS: Levothyroxine TAB* 50 MCG TAB PO SCH (05:19)
[2018-07-05] MEDS: Bacitracin OINTMENT* 0.5% 0.5 oz TUBE TOPICAL SCH ×2 (07:45→21:06)
[2018-07-05] MEDS: Polyethylene Glycol 3350* 17 GM PACKET PO SCH (07:45)
[2018-07-05] MEDS: Docusate CAP* 100 MG PO PRN ×2 (07:45→21:04)
[2018-07-05] MEDS: Pantoprazole TAB * 40 MG TAB PO SCH (07:45)
[2018-07-05] MEDS: Metoprolol Succinate XL TAB* 50 MG PO SCH ×2 (07:45→21:05)
[2018-07-05] MEDS: Lisinopril TAB* 10 MG PO SCH (08:50)
[2018-07-05] MEDS: Doxazosin TAB* 2 MG PO SCH ×2 (08:50→21:04)
[2018-07-05] MEDS: amLODIPine TAB* 5 MG PO SCH (08:50)
[2018-07-05 09:47] LABS: ABS Basophils 0 10^3/ul (0-0.2); ABS Eosinophils 0.1 10^3/ul (0-0.6); ABS Lymphocytes 0.3 10^3/ul (1.0-4.8); ABS Monocytes 0.4 10^3/ul (0-0.8); ABS Nucleated RBC 0 10^3/ul; Eosinophil % 2.4 %; Hematocrit 29 % (35-47); Hemoglobin 9.6 g/dl (12.0-16.0); Mean Corpuscular HGB Conc 34 g/dl (31-36); Mean Corpuscular Hemoglobin 31 pg (27-31); Mean Corpuscular Volume 92 fL (80-97); Mean Platelet Volume 7.3 fL (7.4-10.4); Nucleated Red Blood Cells % 0; Platelet Count 170 10^3/ul (150-450); Red Blood Count 3.13 10^6/ul (4.00-5.40); Red Cell Distribution Width 14 % (10.5-15); White Blood Count 4.9 10^3/ul (3.5-10.8)
[2018-07-05 10:02] LABS: Calcium 8.8 mg/dL (8.6-10.3); EGFR African American 142.6 (>60); EGFR Non-African American 117.8 (>60); Potassium 4.8 mmol/L (3.5-5.0)
[2018-07-05] MEDS: cefTRIAXone(*) 1 GM in NS 0.9% 50 ML* 50 ML IVPB SCH (11:27)
[2018-07-05] MEDS ORDERED: Senna TAB PO ONE (12:02)
[2018-07-05] MEDS: Atorvastatin* 20 MG TAB PO SCH (21:05)
[2018-07-06] MEDS: Acetaminophen TAB* 325 MG PO PRN (07:13)
[2018-07-06] MEDS: Levothyroxine TAB* 50 MCG TAB PO SCH (07:17)
[2018-07-06 08:25] LABS: BUN/Creatinine Ratio 19.6 (8-20); Calcium 8.8 mg/dL (8.6-10.3); EGFR Non-African American 129.7 (>60)
[2018-07-06 08:35] LABS: Potassium 5.1 mmol/L (3.5-5.0)
[2018-07-06] MEDS ORDERED: Cephalexin CAP* 500 MG PO SCH (09:00)
[2018-07-06] MEDS: Lisinopril TAB* 10 MG PO SCH (09:51)
[2018-07-06] MEDS: Polyethylene Glycol 3350* 17 GM PACKET PO SCH (09:51)
[2018-07-06] MEDS: Pantoprazole TAB * 40 MG TAB PO SCH (09:52)
[2018-07-06] MEDS: Metoprolol Succinate XL TAB* 50 MG PO SCH (09:52)
[2018-07-06] MEDS: amLODIPine TAB* 5 MG PO SCH (09:52)
[2018-07-06] MEDS: Doxazosin TAB* 2 MG PO SCH (09:53)
[2018-07-06] MEDS: Bacitracin OINTMENT* 0.5% 0.5 oz TUBE TOPICAL SCH (09:55)
[2018-07-06 12:48] VITALS: BP 118/50
--- NOTE | 2018-07-06 13:33 | DS ---
CC: Dr. Eri Hankins; [facility] DISCHARGE SUMMARY: DATE OF ADMISSION: 07/03/18 DATE OF DISCHARGE: 07/06/18 PRIMARY CARE PROVIDER: Eri Hankins MD DISCHARGE DIAGNOSES: 1. Status post fall. 2. Scalp laceration. 3. Left fifth and sixth rib fractures, acute, nondisplaced. 4. Klebsiella pneumoniae urinary tract infection, present on admission. 5. Chronic hyponatremia. 6. Acute blood anemia secondary to significant bleeding from the scalp laceration. SECONDARY DIAGNOSES: 1. History of frequent falls. 2. Lung cancer, status post bilateral lung lobectomies and chemotherapy with radiation. 3. Hypothyroidism. 4. Hypertension. 5. Gastroesophageal reflux disease. 6. Hyperlipidemia. 7. Chronic venous insufficiency. 8. Osteoarthritis. 9. Recurrent urinary tract infection. 10. History of subarachnoid hemorrhage in 2013, posttraumatic. 11. 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 12. Cerebrovascular accident. 13. Chronic hyponatremia. 14. Chronic hypoxic respiratory failure, on 2 liters of oxygen continuously. MEDICATION LIST: 1. Acetaminophen 650 mg p.o. q.4 hours p.r.n. pain and fever. 2. Amlodipine 2.5 mg p.o. daily. 3. Aspirin 81 mg p.o. daily. 4. Atorvastatin 20 mg p.o. at bedtime. 5. Bacitracin ointment topical b.i.d. 6. Colace 100 mg p.o. b.i.d. p.r.n. constipation. 7. Doxazosin 1 mg p.o. b.i.d. 8. Nexium 20 mg p.o. daily. 9. Levothyroxine 50 mcg p.o. daily. 10. Lisinopril 10 mg p.o. daily. 11. Metoprolol succinate 50 mg p.o. b.i.d. 12. Naproxen 220 mg p.o. b.i.d. p.r.n. pain. 13. MiraLAX 17 g p.o. daily. 14. Senna 1 tablet p.o. at bedtime as needed for constipation. 15. Triamcinolone 0.1% ointment topical b.i.d. as needed for itching. New medications: 1. Cephalexin 500 mg p.o. b.i.d. for 4 more days. 2. Milk of magnesia 30 mL p.o. t.i.d. as needed for constipation. HOSPITAL COURSE: Mrs. Francisco is an 83-year-old lady with a past medical history as stated above that presents to the emergency room on 07/03/18 after a fall with a head laceration. The patient was in h er usual state of health and she slipped on the way out of her bathroom. She hit her head on the doo r frame and sustained a head laceration that caused a fair amount of bleeding. In the emergency room , the patient received 5 jelani, but as the wound was still bleeding she required one 3- 0 Prolene s uture. As the patient had sustained significant bleeding, she was admitted for observation. Her hemoglobin did drop to 8.5 and is now trending up to 9.6 on the day of discharge. Initially, her aspirin and naproxen had been held, but at this point as her H and H are improving and the bleeding is controlled, they will be resumed, especially with her history of CVA. The patient w ould prefer to take Tylenol and naproxen for her pain and declines my offer for any stronger pain med ication. The patient had also been diagnosed with a urinary tract infection and her urine culture done at [facility] grew Klebsiella pneumoniae greater than 100,000 colonies. The patient had been started o n ceftriaxone in the hospital and this was changed to cephalexin to complete her treatment. On admission, the patient's antihypertensives were held due to the significant bleeding, but now her blood pressure trending up again and her antihypertensives will be resumed. The patient has chronic hyponatremia and her sodium has been stable around 122 to 123 range. She did have slight hyperkalemia of 5.1 on the day of discharge and another chemistry is ordered for 9 and the results will be sent to Dr. Hankins and to Geov[facility] Chan. She will adjust medications if needed. The patient is felt to be deconditioned and she would benefit from rehab. Geovanny Chan has offered a bed and the patient is medically stable for discharge at this time. For her jelani and suture, the recommendation is to remove them in 10 days. PHYSICAL EXAMINATION: Vital Signs: Temperature 98.0, heart rate 63, respiratory rate 16, oxygen sat uration 100% on 2 L nasal cannula, blood pressure is 145/67. General: The patient is a pleasant elde rly lady, sitting up on the bed, in no acute distress. HEENT: The patient has a surgical change to the right eye with the right pupil localized to the lower rim of the iris, eccentric with postsurgica l appearing deformation and is nonreactive to light. The left eye, pupil is 2 mm, reactive to light. The patient has a head laceration in the left temporal occipital area with jelani in place, with a palpable hematoma. CVS: S1 and S2. Regular rate and rhythm. Chest: Breath sounds bilaterally wi th no added sounds. Neuro: She is alert and oriented x3, able to move all 4 extremities. DIET: Regular diet. The patient requests a soft diet at this time. DISPOSITION: To [facility]. ACTIVITY: PT/OT as tolerated. STATUS WHILE IN THE HOSPITAL: Inpatient. CONDITION AT THE TIME OF DISCHARGE: Fair. Please keep in mind this is a summarized version of this patient's hospital stay. If you need more in formation, please feel free to call me at [phone] or please obtain the full medical records. TIME SPENT: Approximately 50 minutes were spent to complete this discharge. [id number]/[facility] #: [id number]
== END 2018-07-06 14:26 | DRG 605 ==
LOC: ED 08:05 → OBSVTOIN 11:38 → MED 11:38
PROVIDERS: ADMIT Internal Medicine; ATTEND Internal Medicine
PROC: 0HQ0XZZ Repair Scalp Skin, External Approach (ICD-10-PCS; principal; 2018-07-03)
DX: S01.01XA Laceration without foreign body of scalp, initial encounter (principal); S22.42XA Multiple fractures of ribs, left side, initial encounter for closed fracture; E87.1 Hypo-osmolality and hyponatremia; N39.0 Urinary tract infection, site not specified; D62 Acute posthemorrhagic anemia; J96.11 Chronic respiratory failure with hypoxia; I95.9 Hypotension, unspecified; B96.1 Klebsiella pneumoniae [K. pneumoniae] as the cause of diseases classified elsewhere; E03.9 Hypothyroidism, unspecified; I10 Essential (primary) hypertension; K21.9 Gastro-esophageal reflux disease without esophagitis; E78.5 Hyperlipidemia, unspecified; I87.2 Venous insufficiency (chronic) (peripheral); R00.1 Bradycardia, unspecified; W01.0XXA Fall on same level from slipping, tripping and stumbling without subsequent striking against object, initial encounter; E87.5 Hyperkalemia; Z96.653 Presence of artificial knee joint, bilateral; M19.90 Unspecified osteoarthritis, unspecified site; Z87.440 Personal history of urinary (tract) infections; Z86.73 Personal history of transient ischemic attack (TIA), and cerebral infarction without residual deficits; Z99.81 Dependence on supplemental oxygen; Z79.82 Long term (current) use of aspirin; Z91.048 Other nonmedicinal substance allergy status; Z87.891 Personal history of nicotine dependence; Y92.091 Bathroom in other non-institutional residence as the place of occurrence of the external cause; Z91.81 History of falling; Z85.118 Personal history of other malignant neoplasm of bronchus and lung; Z92.21 Personal history of antineoplastic chemotherapy; Z92.3 Personal history of irradiation; Z80.1 Family history of malignant neoplasm of trachea, bronchus and lung; Z80.0 Family history of malignant neoplasm of digestive organs; Z82.3 Family history of stroke; Z80.3 Family history of malignant neoplasm of breast
CPT/HCPCS: 36415; 70450; 72125; 80048; 80053; 81003; 81015; 85025; 85610; 85730; 86850; 86900; 86901; 87086; 90715; 93005; 99284; A9270-GY; G8978-GP-CK; G8979-GP-CH; G8987-GO-CJ; G8988-GO-CI; J0696

== ENCOUNTER 2018-08-22 14:51 | Observation (INO) | payer MEDICARE, BC ==
--- OUTSIDE RECORDS SUMMARY | 2018-08-22 15:22 | XMS REPORT | Continuity of Care Document ---
:1935 External Reference #:[id number] Author Name Jeannette Chandra O.D. Address [address] [place] [address] Care Team Providers Name Role Phone Eri Hankins M.D. Primary Care Physician Unavailable Payers Date Identification Numbers Payment Provider Subscriber Policy Number: [id number] Medicare - NGS Belia Francisco PayID: [id number] [address] [place] [address] Policy Number: [id number] Elsa Plan Belia Bloomgs PayID: [id number] [address] [place] [address] Advance Directives Description No Information Available Problems [...] Chandra O.D. Active Onset: Hypercholesterolemia 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 Onset: 01/04/2017 Regular astigmatism Jeannette Chandra O.D. Active Onset: 01/04/2017 Myopia Jeannette Chandra O.D. Active Onset: 01/04/2017 Presbyopia Jeannette Chandra O.D. Active Family History Date Family Member(s) Observation Comments General No Current Problems Father No Current Problems Mother No Current Problems Social History Type Date Description Comments Sex Unknown Marital Status Legal Status: Occupation Homemaker Work Status Retired ETOH Use Denies alcohol use Tobacco Use Start: Unknown End: Unknown Patient is a former smoker Recreational Drug Use Denies Drug Use Smoking Status Reviewed: 08/13/18 Patient is a former smoker Allergies, Adverse Reactions, Alerts Description No Known Drug Allergies Medications Medication Date Status Form Strength Qnty SIG Indications Ordering Provider Sulfamethoxazol / Active Tablets 800-160mg [place], e/Trimethoprim 0000 Jacinto LAZAR Lisinopril / Active Tablets 20mg Take 1 Tablet Unknown 0000 By Mouth Every Day Levothyroxine / Active Tablets 50mcg Take 1 Tablet Unknown Sodium 0000 By Mouth Every Day Metoprolol / Active Tablets 50mg Take 1 Tablet Unknown Succinate ER 0000 ER 24HR By Mouth Twice A Day Doxazosin // Active Tablets 1mg Take 1 Tablet Unknown Mesylate 0000 By Mouth Twice A Day Calcium 1200 00// Active Unknown 0000 Multiple 00/ Active Tablets Unknown Vitamins 0000 Atorvastatin /00/ Active Tablets 20mg Unknown Calcium 0000 Fluconazole 00/00/ Active Tablets 200mg Unknown 0000 Silver / Active Cream 1% Unknown Sulfadiazine 0000 Amlodipine / Active Tablets 2.5mg Hankins, Besylate 0000 Eri Hanna Nexium / Active Capsules 20mg Unknown [address] Miralax / Active Powder 3350NF dissolve 17gm Unknown 0000 in 4-8ox liquid and drink twice a day as needed for constipation Amoxicillin / Active Capsules 500mg Take 4 Unknown 0000 Capsules 1 Hour Prior To Dental Appointment. Visine Tears 01/17/ Hx Solution 0.2-0.2-1 OD as needed Jeannette Sanchez 2017 - % Prateek, 08/11/ O.D. 2019 Doxycycline // Hx Capsules 100mg Unknown Hyclate 0000 - 2015 Immunizations Description No Information Available Vital Signs Description No Information Available Results Description No Information Available Procedures Date Code Description Status 01/18/2018 00830 Scanning Computerized Opthalmic Diagnostic Posterior Seg Completed Retina 01/18/2018 37786 Est Patient Comprehensive Exam Completed 07/10/2017 63849 Scanning Computerized Opthalmic Diagnostic Posterior Seg Completed Retina 07/10/2017 88142 Est Patient Comprehensive Exam Completed 01/04/2017 26201 Scanning Computerized Opthalmic Diagnostic Posterior Seg Completed Retina 01/04/2017 83864 Determination Of Refractive State Completed 01/04/2017 24357 Est Patient Comprehensive Exam Completed 12/19/2016 82452 Patient No Show For Appt Completed 06/20/2016 33064 Scanning Computerized Opthalmic Diagnostic Posterior Seg Completed Retina 06/20/2016 09656 Est Patient Intermediate Exam Completed 12/07/2015 01917 Est Patient Intermediate Exam Completed 12/07/2015 20169 Scanning Computerized Opthalmic Diagnostic Posterior Seg Completed Retina 09/07/2015 88378 Scanning Computerized Opthalmic Diagnostic Posterior Seg Completed Retina 09/07/2015 31670 Est Patient Intermediate Exam Completed 06/29/2015 65421 Scanning Computerized Opthalmic Diagnostic Posterior Seg Completed Retina 06/29/2015 97533 Est Patient Comprehensive Exam Completed 12/18/2014 50951 Scanning Computerized Opthalmic Diagnostic Posterior Seg Completed Retina 12/18/2014 37846 Est Patient Intermediate Exam Completed 06/11/2014 14835 Scanning Computerized Opthalmic Diagnostic Posterior Seg Completed Retina 06/11/2014 12909 Est Patient Comprehensive Exam Completed 09/01/2013 53266 Scanning Computerized Opthalmic Diagnostic Posterior Seg Completed Retina 09/01/2013 58920 Remove Secondary Cataract, Laser (Yag) Completed 08/28/2013 08344 New Patient Comprehensive Exam Completed Encounters Description No Information Available Plan of Treatment Future Appointment(s):09/17/2018 2:00 pm - Jeannette Chandra O.D. at [facility], 08/13/2018 - Jeannette Chandra O.D.H35.372 Puckering of macula, left eyeComments:Smoking can increase the risk of developing or worsening any eye related disease, as well as affect your overall health. If you are a smoker, we strongly recommend that you quit.If you are not a smoker, we strongly recommend that you do not start. A Macular Pucker is a wrinkling of the retina tissue. It can cause distortion in your vision. Please call the office if you notice a decrease or new distortion in your vision.H18.51 Endothelial corneal dystrophyComments:start using adryan 128 drops 3 times a day in the left eyeFollow up:1 month review of symptoms
[2018-08-22] MEDS ORDERED: Senna TAB PO PRN (17:19)
[2018-08-22] MEDS ORDERED: Docusate CAP* 100 MG PO PRN (17:19)
[2018-08-22 18:07] LABS: ABS Basophils 0 10^3/ul (0-0.2); ABS Eosinophils 0.1 10^3/ul (0-0.6); ABS Lymphocytes 0.6 10^3/ul (1.0-4.8); ABS Monocytes 0.4 10^3/ul (0-0.8); ABS Neutrophils 4.1 10^3/ul (1.5-7.7); ABS Nucleated RBC 0 10^3/ul; Eosinophil % 1.5 %; Hematocrit 33 % (33-41); Hemoglobin 10.9 g/dL (12.0-16.0); Lymphocyte % 11.1 %; Mean Corpuscular HGB Conc 33 g/dL (31-36); Mean Corpuscular Hemoglobin 29 pg (27-31); Mean Corpuscular Volume 89 fL (80-97); Mean Platelet Volume 7.4 fL (7.4-10.4); Nucleated Red Blood Cells % 0; Platelet Count 244 10^3/uL (150-450); Red Blood Count 3.71 10^6 /uL (3.70-4.87); Red Cell Distribution Width 17 % (10.5-15); White Blood Count 5.2 10^3/uL (3.5-10.8)
[2018-08-22 18:27] LABS: Albumin 3.7 g/dL (3.2-5.2); Albumin/Globulin Ratio 1.5 (1-3); BUN/Creatinine Ratio 28.1 (8-20); Calcium 9.1 mg/dL (8.6-10.3); EGFR African American 122.6 (>60); EGFR Non-African American 101.3 (>60); Globulin 2.5 g/dL (2-4); Potassium 3.8 mmol/L (3.5-5.0); Total Bilirubin 0.3 mg/dL (0.2-1.0); Total Protein 6.2 g/dL (6.4-8.9)
[2018-08-22] MEDS: Metoprolol Succinate XL TAB* 50 MG PO SCH (21:06)
[2018-08-22] MEDS: Atorvastatin* 20 MG TAB PO SCH (21:06)
[2018-08-22] MEDS: Doxazosin TAB* 2 MG PO SCH (21:06)
[2018-08-22] MEDS: amLODIPine TAB* 5 MG PO SCH (21:06)
[2018-08-22] MEDS: Heparin VIAL(*) 5000 UNITS/ML VIAL (FIVE THOUSAND) SUBCUT SCH (21:08)
[2018-08-22] MEDS ORDERED: Polyethylene Glycol 3350* 17 GM PACKET PO ONE (22:00)
[2018-08-22 22:50] LABS: Urine Appearance Cloudy; Urine Bilirubin Negative (Negative); Urine Blood Negative (Negative); Urine Color Yellow; Urine Glucose Negative (Negative); Urine Ketones Negative (Negative); Urine Nitrite Negative (Negative); Urine Protein Negative (Negative); Urine Specific Gravity 1.016 (1.010-1.030); Urine Urobilinogen Negative (Negative)
--- NOTE | 2018-08-23 02:03 | HP ---
HISTORY AND PHYSICAL: DATE OF ADMISSION: 08/22/18 HISTORY: Belia Francisco is an 83-year-old woman admitted with abdominal pain, bladder distention, fecal incontinence. The patient had been hospitalized here in June at which time she had fallen. She had fractured ribs and recently was found to have an L1 compression fracture because of back pain, that she has complained of since that time. She left the hospital and went to [facility]. There she was initially constipated, but her bowel movements eventually improved. She was discharged from there returning to her daughter's home where she lives. She followed up with us on 08/09/18. At that time, she did complain of the lower back pain and we subsequently did find out on imaging that she had an L1 compression fracture. During the time she had been [facility] the [facility], her legs were swollen which resolved. She was having some difficulty swallowing, which had improved while she was there. She had a urinary tract infection in the hospital. She did have a weak stream when she came in for a followup and was found to have a UTI, which was treated with Cipro. At the time of that visit, she complained of some puffiness of her abdomen. Her abdomen was soft with bilateral inguinal hernias felt to be present and she had some tenderness of the right SI joint on exam. Her rib fractures were felt to be healing. She had a history of hyponatremia and this had improved. She had previously been on sodium chloride tablets, which she said she had not received in the penitentiary, but started taking again when she returned home. After that visit, she came in again on 08/20/18 complaining of pain in the right lower quadrant of the abdomen, which had started the week before. She rated this pain as 5/10. The pain was described as being constant did not seem to wax or wane. It felt better when she put pressure on it. She was able to sleep despite the pain. She was having fecal incontinence, stool seeping out on to her pad. This was new in the previous week. She had had a soft, medium-size bowel movement the previous day, but none that day. She denied nausea, vomiting, fever, chills, sweats, black or bloody stools. No pain with bowel movements. On her exam, her abdomen was markedly distended with tenderness diffusely greatest in the right lower quadrant, no rebound. Her bowel sounds were hyperactive. Rectal exam showed soft stool and there was leakage on her pad. Stool was guaiac negative. She was sent for CT of the abdomen and pelvis with contrast and her CT did show bladder distention, stool in the large colon. There was no ileus. Contrast got down to the level of the colon. She said when I spoke with her day after her CT, which was yesterday, she said she was having some difficulty urinating. I suggested she take more laxative, instructed her to take ex-lax. She did have results from this with a large amount of incontinence of stool. Despite this, she was still having difficulty urinating. So, she is being admitted at this time. PAST MEDICAL HISTORY: Otherwise significant for the following problems: 1. History of lung cancer in remission status post bilateral lower lobe lobectomies. 2. History of hypertension. 3. Osteoarthritis. 4. Hypothyroidism. 5. Hyperlipidemia. 6. 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 7. Status post right knee replacement. 8. Osteoporosis with previous thoracic vertebral compression fracture and recent L1 compression fracture. 9. Recurrent urinary tract infections. 10. History of EtOH abuse, none for over 5 years. 11. History of tobacco abuse. 12. Gastroesophageal reflux disease. 13. Venous insufficiency of the lower extremities. 14. History of CVA. 15. In 2003, a subarachnoid hemorrhage after a fall. 16. Hyponatremia. 17. History of diastolic heart failure, worsened on sodium chloride tablets. PAST SURGICAL HISTORY: 1. In 2004, left lower lung lobectomy. 2. In 2009, right lower lung lobectomy. 3. Status post total knee replacement in 2000 and 2009. 4. Status post total hysterectomy. 5. Status post tonsillectomy. 6. Retinal tears, right eye with surgeries. 7. In 2011, kyphoplasty. MEDICATIONS: Current medications are: 1. Metoprolol 50 mg b.i.d. 2. Calcitonin 1 spray nasally every other day. 3. Doxazosin 1 mg twice a day. 4. Amlodipine 2.5 mg b.i.d. 5. Lisinopril 10 mg daily. 6. Sodium chloride 1 g every day. 7. Levothyroxine 50 mcg daily. 8. Atorvastatin 20 mg daily. 9. MiraLAX 17 g daily. 10. Aspirin 81 mg daily. 11. Aleve 220 mg b.i.d. p.r.n. 12. Multivites 1 every day. 13. Caltrate with D b.i.d. 14. Milk of magnesia 30 mL daily p.r.n. 15. Nexium 24HR 20 mg capsule daily. ALLERGIES: LATEX. FAMILY HISTORY: Positive for lung cancer and colon cancer in her father. Mother with hypertension, [place], CVA. Daughter with breast cancer. SOCIAL AND PERSONAL HISTORY: The patient is retired, living with her daughter in [place]. She has home health aide as well staying with her. REVIEW OF SYSTEMS: Generally, she has not been feeling well due to the present illness. Skin: She had a laceration of her right leg on a cabinet 8 days ago. She has been keeping a Band-Aid on it. HEENT: See above. Nodes: Negative. Endocrine: See above. Breasts: Negative. Respiratory: See above. She wears oxygen at night. Cardiovascular: See above. GI: See above. : See above. SQL REPORT ANALYST: See above. Musculoskeletal: See above. Neuro: See above. PHYSICAL EXAMINATION VITAL SIGNS: Blood pressure 110/80, pulse 73, respiratory rate 18, temperature 97.7, O2 saturation 84% on room air. SKIN: Warm and dry. There is a triangular skin tear with open wound right anterior estevez which she said she got on the edge of a cabinet 8 days ago. HEENT: Atraumatic, normocephalic. Full EOMs. Right pupil fixed offset. Mouth :normal mucous membranes. Pharynx is unremarkable. NECK: Supple. CHEST: Clear. HEART: Normal S1, S2. No murmurs, gallops, or rubs. ABDOMEN: Soft, distended with diffuse tenderness greatest in the right lower quadrant. No masses or organomegaly noted. The distention is less than it had been 2 days ago. It is softer today than it was. Bowel sounds are active. RECTAL: Rectal exam done 2 days ago, not on today. EXTREMITIES: Show 2+ edema of the right leg. No edema of the left leg. DIAGNOSTIC STUDIES/LAB DATA: Laboratory is pending. IMPRESSION: The patient is with urinary distention, constipation with fecal incontinence. PLAN: 1. The plan is to admit her for observation. I will order a bladder ultrasound. If she has a large residual, we will straight cath her. I will try to relieve her constipation for it is possible the constipation is leading to the urinary retention. Her other medications will be continued. Further workup also be determined by the results of her labs. 2. Code status is DNR. 3. DVT prophylaxis will be given with heparin. [id number]/[facility] #: [id number] MTDD
[2018-08-23] MEDS: Levothyroxine TAB* 50 MCG TAB PO SCH (05:49)
[2018-08-23] MEDS: Heparin VIAL(*) 5000 UNITS/ML VIAL (FIVE THOUSAND) SUBCUT SCH ×3 (05:49→21:48)
[2018-08-23] MEDS ORDERED: Polyethylene Glycol 3350* 17 GM PACKET PO SCH (09:00)
[2018-08-23] MEDS: amLODIPine TAB* 5 MG PO SCH ×2 (09:22→21:38)
[2018-08-23] MEDS: Sodium Chloride TAB* 1 GM PO SCH (09:23)
[2018-08-23] MEDS: Doxazosin TAB* 2 MG PO SCH ×2 (09:24→21:43)
[2018-08-23] MEDS: Metoprolol Succinate XL TAB* 50 MG PO SCH ×2 (09:25→21:43)
[2018-08-23] MEDS: Aspirin 81 mg CHEW TAB* 81 MG TAB.CHEW PO SCH (09:25)
[2018-08-23] MEDS: Lisinopril TAB* 10 MG PO SCH (09:25)
[2018-08-23] MEDS: Pantoprazole TAB * 40 MG TAB PO SCH (09:26)
[2018-08-23] MEDS: Calcitonin NASAL(NF) 200 UNITS/SPRAY NASAL.SPR ALT NARE SCH (10:40)
[2018-08-23] MEDS: Atorvastatin* 20 MG TAB PO SCH (21:42)
[2018-08-23] MEDS: Acetaminophen TAB* 325 MG PO PRN (21:53)
[2018-08-24] MEDS: Acetaminophen TAB* 325 MG PO PRN (04:42)
[2018-08-24] MEDS: Levothyroxine TAB* 50 MCG TAB PO SCH (06:42)
[2018-08-24] MEDS: Heparin VIAL(*) 5000 UNITS/ML VIAL (FIVE THOUSAND) SUBCUT SCH ×2 (06:42→14:52)
[2018-08-24] MEDS: Doxazosin TAB* 2 MG PO SCH (09:01)
[2018-08-24] MEDS: Lisinopril TAB* 10 MG PO SCH (09:01)
[2018-08-24] MEDS: Aspirin 81 mg CHEW TAB* 81 MG TAB.CHEW PO SCH (09:02)
[2018-08-24] MEDS: Sodium Chloride TAB* 1 GM PO SCH (09:02)
[2018-08-24] MEDS: amLODIPine TAB* 5 MG PO SCH (09:03)
[2018-08-24] MEDS: Metoprolol Succinate XL TAB* 50 MG PO SCH (09:03)
[2018-08-24] MEDS: Pantoprazole TAB * 40 MG TAB PO SCH (09:03)
[2018-08-24] MEDS: Calcitonin NASAL(NF) 200 UNITS/SPRAY NASAL.SPR ALT NARE SCH (09:12)
[2018-08-24 11:24] VITALS: BP 120/55
--- NOTE | 2018-08-24 14:32 | DS ---
DISCHARGE SUMMARY: DATE OF ADMISSION: 08/22/18 DATE OF DISCHARGE: 08/24/18 DISCHARGE DIAGNOSES: 1. Constipation. 2. Urinary retention. 3. History of lung cancer, in remission, status post bilateral lower lobe lobectomies. 4. History of hypertension. 5. Chronic obstructive pulmonary disease. 6. Osteoarthritis. 7. Hypothyroidism. 8. Hyperlipidemia. 9. 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 10. Status post knee replacement. 11. Osteoporosis with recent L1 compression fracture, recurrent urinary tract infections. 12. History of ETOH abuse, none for over 5 years. 13. History of tobacco abuse, not currently smoking. 14. Gastroesophageal reflux disease. 15. Venous insufficiency in her lower extremities. 16. History of cerebrovascular accident. 17. History of subarachnoid hemorrhage after fall in 2003. 18. Hyponatremia, currently being treated with sodium chloride tablet 1 g a day. 19. History of diastolic heart failure, worsened on higher doses of sodium chloride tablets. 20. Right lower leg skin tear with wound. 21. Abdominal pain, possibly muscular, possibly due to L1 compression fracture. HISTORY: Belia Francisco is an 83-year-old woman admitted with abdominal pain, urinary retention, constipation with leakage of stool. Please see dictated admission note for details of present illness, past medical history, family history, social and personal history, review of systems, and physical examination. LABORATORY DATA: CBC on 08/22/18, WBC 5.2, H and H 10.9/33, MCV 89, PLT 244, 000. Chemistry, sodium 132, potassium 3.8, chloride 98, CO2 of 31, BUN and creatinine 16/0.57, glucose 115 (nonfasting), alkaline phosphatase 114, total protein 6.2, chemistry profile otherwise is within normal limits. Urinalysis; yellow, cloudy, specific gravity 1.016, pH 6, dip sticks negative. IMAGING: Bladder ultrasound showed prevoid bladder volume of 696.1 and postvoid 417.9. HOSPITAL COURSE: The patient was admitted. A bladder scan showed large postvoid residual. She was catheterized for 550 cc of urine. After that, she was able to void fairly normally with postvoid residual that never exceeded 250 cc, so she did not require further catheterization. She had large bowel movements. She did get 1 enema with a moderate amount of stool. She was able to empty her bowels and her urinary retention was resolved with catheterization. She felt better, although she did continued to have pain in right lower quadrant, 3/10. At the time of discharge on 08/24/18, she is voiding fairly normally. There is a 0 postvoid residual. She has had a large bowel movement. She still rates her pain in the right lower quadrant 3/10. PHYSICAL EXAM: Vital Signs: Blood pressure 120/55, pulse 69, respirations 20, temperature 97.1, O2 sat 96%. Lungs are clear. Heart is regular. Abdomen shows mild right lower quadrant tenderness without rebound or guarding. Bowel sounds are active. Extremities showed only trace edema. The wound on her right anterior lower leg is healing. There is no surrounding erythema. The bandage was removed and Mepilex was placed on it after placing triple antibiotic ointment on the wound. She is to walk with her walker. She is being discharged on a regular diet. Activity is as usual. She is to walk with her walker as much as possible. When she is sitting, she is told to elevate her legs. DISCHARGE MEDICATIONS: Her medications are as follows: 1. Vitamin D 1000 units daily. 2. Spiriva Respimat 1.25 mcg daily. This is a new prescription because of her complaints of shortness of breath and because her daughter does not think she should be using oxygen when she has normal oxygen levels, but she does have shortness of breath. Old PFTs were found to show moderate obstructive pulmonary disease in 2016. This was before I was her doctor. 3. Sodium chloride 1 g a day. 4. MiraLAX 17 g daily. 5. Aleve 220 mg twice a day as needed. 6. Milk of magnesia 30 cc daily as needed for constipation. 7. Bacitracin ointment as needed. 8. Senna 1 tab daily as needed. 9. Colace 100 mg twice a day. 10. Metoprolol-XL 50 mg twice a day. 11. Lisinopril 10 mg once a day. 12. Levothyroxine 50 mcg once a day. 13. Nexium 20 mg once a day. 14. Doxazosin 1 mg twice a day. 15. Atorvastatin 20 mg once a day. 16. Aspirin 81 mg once a day. 17. Amlodipine 2.5 mg twice a day. 18. Acetaminophen 650 q.4 h. p.r.n. pain. FOLLOW UP: Follow up with me will be in in 4 to 7 days. She was told to leave the Mepilex until she sees me. She is told not to take calcium or multivitamin. She is to take vitamin D. [id number]/[facility] #: [id number] [facility]Pretty
== END 2018-08-24 14:00 | disposition home or self-care (01) ==
LOC: MED 15:17
PROVIDERS: ADMIT Internal Medicine Geriatric Medicine; ATTEND Internal Medicine Geriatric Medicine
DX: K59.00 Constipation, unspecified (principal); R33.9 Retention of urine, unspecified; Z85.118 Personal history of other malignant neoplasm of bronchus and lung; I10 Essential (primary) hypertension; J44.9 Chronic obstructive pulmonary disease, unspecified; M19.90 Unspecified osteoarthritis, unspecified site; E03.9 Hypothyroidism, unspecified; E78.5 Hyperlipidemia, unspecified; H54.61 Unqualified visual loss, right eye, normal vision left eye; Z96.651 Presence of right artificial knee joint; M81.0 Age-related osteoporosis without current pathological fracture; N39.0 Urinary tract infection, site not specified; Z87.891 Personal history of nicotine dependence; F10.21 Alcohol dependence, in remission; K21.9 Gastro-esophageal reflux disease without esophagitis; I87.2 Venous insufficiency (chronic) (peripheral); Z86.73 Personal history of transient ischemic attack (TIA), and cerebral infarction without residual deficits; Z86.79 Personal history of other diseases of the circulatory system; E87.1 Hypo-osmolality and hyponatremia; I50.30 Unspecified diastolic (congestive) heart failure; S81.811D Laceration without foreign body, right lower leg, subsequent encounter; X58.XXXD Exposure to other specified factors, subsequent encounter; R10.9 Unspecified abdominal pain; Z79.82 Long term (current) use of aspirin; Z79.899 Other long term (current) drug therapy; Z66 Do not resuscitate
CPT/HCPCS: 36415; 76857; 80053; 81003; 85025; 87077; 87086; 96372; A9270-GY; G0378; J1644

== ENCOUNTER 2019-03-05 14:57 | Inpatient (IN) | payer MEDICARE, BC ==
--- OUTSIDE RECORDS SUMMARY | 2019-03-05 15:21 | XMS REPORT | Continuity of Care Document ---
:1935 External Reference #:[id number] Author Name Haritha Avila NP (transmitted by agent of provider Leticia Arias) Address [address] [facility], [address] [address] Care Team Providers Name Role Phone Eri Hankins MD - Internal Medicine Care Team Information Fire Sprinkler Fitter Problems Active Problems Provider Date Disturbance in sleep behavior Tsering Blount MD Onset: 05/02/2016 Hypoxemia Tsering Blount MD Onset: 05/02/2016 Social History Type Date Description Comments Sex Unknown Tobacco Use Start: Unknown End: Former Cigarette Smoker 1/2 50 years Unknown Pack Daily Smoking Status Reviewed: 01/07/19 Former Cigarette Smoker 1/2 50 years Pack Daily ETOH Use Denies alcohol use Tobacco Use Start: Unknown End: Patient is a former smoker Unknown Recreational Drug Use Denies Drug Use Exercise Type/Frequency Does not exercise Allergies, Adverse Reactions, Alerts Active Allergies Reaction Severity Comments Date Latex 05/05/2016 Adhesive 12/04/2017 Inactive Allergies NKDA 12/29/2015 Medications Active Medications SIG Qnty Indications Ordering Provider Date Fluticasone One spray per 16gm R09.81 Haritha 10/23/2018 Propionate nostril twice [facility] Avila 50mcg/Act daily as needed Suspension Pulse Oximeter For use as needed to 1units R09.02 Haritha 10/23/2018 Finger monitor oxygen MILA Avila Misc levels Albuterol Sulfate 1 unit, nebl, 675ml J44.9 Tsering Blount MD 10/09/2018 every 6 hours, 0.63mg/3ML Nebulizer as needed R06.02 R09.02 Oxygen please use o2 at 1units R09.02 Tsering Blount, 06/07/2017 Misc 2l/min at night and with exertion, rob to portable tanks from portable concentrator Albuterol Sulfate HFA Inhale 2 Puffs Every 4 Unknown Hours as Needed For 108(90Base) mcg/Act Shortness Of Breath Aerosol Spiriva Respimat 2 puffs one time per Unknown day in the morning 1.25mcg/Act Aerosol Amlodipine Besylate 1 by mouth every day Unknown 2.5mg Tablets Melatonin 2 tabs po qhs Unknown 3mg Tablets ER Aspirin Adult Low Dose 1 by mouth every day Unknown 81mg Tablets DR Nexium 24HR 1 by mouth every day Unknown 20mg Tablets DR Calcium 600 1 by mouth every day Unknown 600mg Tablets Lipitor one tab by mouth every Unknown 20mg Tablets night at bedtime Toprol XL 1 by mouth every day Unknown 50mg Tablets ER 24HR Synthroid 1 by mouth every day Unknown 50mcg Tablets Multivitamin & Mineral Unknown Liquid Doxazosin Mesylate take one tab twice a Unknown 1mg day Tablets Lisinopril 1 by mouth every day Unknown 10mg Tablets Immunizations Description No Information Available Vital Signs Date Vital Result Comment 01/07/2019 11:39am Height 60 inches 5'0" Weight 119.00 lb Heart Rate 72 /min BP Systolic Sitting 136 mmHg Rue reg cuff BP Diastolic Sitting 68 mmHg Rue reg cuff Respiratory Rate 24 /min O2 % BldC Oximetry 95 % On Ra BMI (Body Mass Index) 23.2 kg/m2 11/06/2018 12:49pm Height 60 inches 5'0" Weight 115.00 lb Heart Rate 68 /min BP Systolic Sitting 120 mmHg Lue regular cuff BP Diastolic Sitting 60 mmHg Lue regular cuff Respiratory Rate 12 /min O2 % BldC Oximetry 95 % BMI (Body Mass Index) 22.5 kg/m2 Results Description No Information Available Procedures Date Code Description Status 12/17/2018 17912 Polysomnography Sleep Staging 4+ Parameters W/Cpap Completed 10/29/2018 55211 Sleep Study Unattended,HRT Rate,Oxygen Sat,Resp Completed Effort/Airflow Medical Devices Description No Information Available Encounters Type Date Location Provider Dx Diagnosis Office Visit 11/06/2018 [facility] Haritha G47.33 Obstructive sleep 1:00p [facility] apnea (adult) [facility] (pediatric) J44.9 Chronic obstructive pulmonary disease, unspecified R09.02 Hypoxemia Office Visit 10/23/2018 1:30p [facility] Haritha J44.9 Chronic [facility] obstructive Superintendent Pressure pulmonary disease, unspecified R09.02 Hypoxemia C34.90 Malignant neoplasm of 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 G47.9 Sleep disorder, unspecified I27.20 Pulmonary hypertension, unspecified R09.81 Nasal congestion Office Visit 10/09/2018 12:00p Pulmonology And Tsering R06.02 Shortness of [facility]andro breath [facility] J44.9 Chronic obstructive pulmonary disease, unspecified R09.02 Hypoxemia C34.90 Malignant neoplasm of 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 Assessments Date Code Description Provider 01/07/2019 G47.33 Obstructive sleep apnea (adult) (pediatric) Harithaosmany Rodriguezner, VEHICLE BODY MAKER 01/07/2019 J44.9 Chronic obstructive pulmonary disease, Haritha Margarita, VEHICLE BODY MAKER unspecified 01/07/2019 R09.02 Hypoxemia Haritha Margarita, VEHICLE BODY MAKER 12/17/2018 G47.33 Obstructive sleep apnea (adult) (pediatric) Tsering Blount MD 11/06/2018 G47.33 Obstructive sleep apnea (adult) (pediatric) Haritha Margarita, VEHICLE BODY MAKER 11/06/2018 J44.9 Chronic obstructive pulmonary disease, Haritha Margarita, VEHICLE BODY MAKER unspecified 11/06/2018 R09.02 Hypoxemia Haritha Margarita, VEHICLE BODY MAKER 10/29/2018 G47.33 Obstructive sleep apnea (adult) (pediatric) Tsering Blount MD 10/23/2018 J44.9 Chronic obstructive pulmonary disease, Haritha Margarita, VEHICLE BODY MAKER unspecified 10/23/2018 R09.02 Hypoxemia Haritha Margarita, VEHICLE BODY MAKER 10/23/2018 C34.90 Malignant neoplasm of unspecified part of Haritha Margarita, VEHICLE BODY MAKER unspecified bronch 10/23/2018 G47.9 Sleep disorder, unspecified Haritha Avila NP 10/23/2018 I27.20 Pulmonary hypertension, unspecified Haritha Avila NP 10/23/2018 R09.81 Nasal congestion Haritha Avila NP 10/09/2018 R06.02 Shortness of breath Tsering Blount MD 10/09/2018 J44.9 Chronic obstructive pulmonary disease, Tsering Blount MD unspecified 10/09/2018 R09.02 Hypoxemia Tsering Blount MD 10/09/2018 C34.90 Malignant neoplasm of unspecified part of Tsering Blount MD unspecified bronch Plan of Treatment Future Appointment(s):03/06/2019 1:00 pm - Haritha Avila NP at [facility]01/07/2019 - Haritha Avila NPG47.33 Obstructive sleep apnea (adult) (pediatric)Follow up:6-8 weeks ([facility]) Recommendations:You are being set up with CPAP for your sleep apnea through [facility] . They will call you to set up an appointment to get fit for a mask and meat pickler your machine. If youhave difficulty with your equipment, or need to replace your mask or hoses, please contact your homecare agency. If you have any further questions, please call the [facility] at [phone] If you have any sleepiness while driving you MUST avoid operating a vehicle or machinery. If youfeel tired while driving, focus puller and take a nap or switch drivers. If you know you are sleepy andneed to go somewhere, arrange for a ride or use public transportation. It is very important to not risk your safety or the safety of others.J44.9 Chronic obstructive pulmonary disease, [id number] Hypoxemia Functional Status Description No Information Available Mental Status Description No Information Available Referrals Description No Information Available
[2019-03-05] MEDS ORDERED: Saline FLUSH-PERIPHERAL* 10 ML SYRINGE PERIPH SCH (16:00)
[2019-03-05 16:30] LABS: ABS Eosinophils 0.1 10^3/ul (0-0.6); ABS Lymphocytes 0.4 10^3/ul (1.0-4.8); ABS Monocytes 0.5 10^3/ul (0-0.8); ABS Neutrophils 5.2 10^3/ul (1.5-7.7); Eosinophil % 1.7 %; Hematocrit 30 % (35-47); Hemoglobin 10.2 g/dL (12.0-16.0); Lymphocyte % 6.4 %; Mean Corpuscular HGB Conc 34 g/dL (31-36); Mean Corpuscular Hemoglobin 30 pg (27-31); Mean Corpuscular Volume 88 fL (80-97); Mean Platelet Volume 7.1 fL (7.4-10.4); Nucleated Red Blood Cells % 0.2; Platelet Count 231 10^3/uL (150-450); Red Blood Count 3.39 10^6 /uL (3.70-4.87); Red Cell Distribution Width 14 % (10-15); White Blood Count 6.2 10^3/uL (3.5-10.8)
[2019-03-05 16:42] LABS: ALT 9 U/L (7-52); AST 13 U/L (13-39); Albumin 3.1 g/dL (3.2-5.2); Albumin/Globulin Ratio 1.1 (1-3); Alkaline Phosphatase 94 U/L (34-104); Anion Gap 4 mmol/L (2-11); Blood Urea Nitrogen 15 mg/dL (6-24); C Reactive Protein 161.36 mg/L (<8.01); CO2 Carbon Dioxide 29 mmol/L (22-32); Calcium 9.1 mg/dL (8.6-10.3); Chloride 99 mmol/L (101-111); EGFR African American 142.2 (>60); EGFR Non-African American 117.5 (>60); Globulin 2.9 g/dL (2-4); Glucose 96 mg/dL (70-100); Magnesium 1.5 mg/dL (1.9-2.7); Potassium 3.8 mmol/L (3.5-5.0); Sodium 132 mmol/L (135-145)
[2019-03-05 16:50] LABS: Troponin I 0.04 ng/mL (<0.04)
[2019-03-05] MEDS ORDERED: Albuterol/Ipratropium NEB.SOL* Albuterol 2.5 MG/Ipratropium 0.5 MG 3 ML INH PRN (17:38)
[2019-03-05] MEDS ORDERED: Acetaminophen TAB* 325 MG PO PRN (18:44)
[2019-03-05] MEDS ORDERED: Senna TAB 8.6 mg* TAB PO PRN (18:44)
[2019-03-05] MEDS ORDERED: Magnesium Hydroxide LIQ* 30 ML UDC PO PRN (18:50)
[2019-03-05] MEDS ORDERED: Naproxen TAB* 250 MG PO PRN (18:50)
[2019-03-05] MEDS ORDERED: traZODone TAB* 50 MG TAB PO PRN (19:10)
[2019-03-05 20:23] LABS: Urine Appearance Cloudy; Urine Bacteria Absent (Absent); Urine Bilirubin Negative (Negative); Urine Blood Negative (Negative); Urine Color Yellow; Urine Glucose Negative (Negative); Urine Ketones Negative (Negative); Urine Nitrite Negative (Negative); Urine Protein Negative (Negative); Urine Red Blood Cell 2+(6-10/hpf) (Absent); Urine Specific Gravity 1.019 (1.010-1.030); Urine Squamous Epithelial Cell Present (Absent); Urine Urobilinogen Negative (Negative); Urine White Blood Cell 3+(>20/hpf) (Absent)
[2019-03-05] MEDS: Azithromycin 500 mg/250 ml NS 500 MG/250 ML BAG IVPB SCH (20:29)
[2019-03-05] MEDS: NS 0.9% 1000 ML** 1,000 ML IV SCH (20:30)
[2019-03-05 21:03] LABS: Troponin I 0.05 ng/mL (<0.04)
[2019-03-05] MEDS: Metoprolol Succinate XL TAB* 50 MG PO SCH (21:53)
[2019-03-05] MEDS: Atorvastatin* 20 MG TAB PO SCH (21:53)
[2019-03-05] MEDS: traZODone TAB* 50 MG TAB PO PRN (21:54)
[2019-03-05] MEDS: Doxazosin TAB* 2 MG PO SCH (21:54)
[2019-03-05] MEDS: cefTRIAXone(*) 1 GM in NS 0.9% 50 ML* 50 ML IVPB SCH (21:55)
[2019-03-05 23:50] LABS: ABS Eosinophils 0.2 10^3/ul (0-0.6); ABS Lymphocytes 0.4 10^3/ul (1.0-4.8); ABS Monocytes 0.4 10^3/ul (0-0.8); Eosinophil % 3.9 %; Hematocrit 27 % (35-47); Hemoglobin 9.2 g/dL (12.0-16.0); Lymphocyte % 8.8 %; Mean Corpuscular HGB Conc 34 g/dL (31-36); Mean Corpuscular Hemoglobin 30 pg (27-31); Mean Corpuscular Volume 88 fL (80-97); Mean Platelet Volume 6.5 fL (7.4-10.4); Nucleated Red Blood Cells % 0.1; Platelet Count 207 10^3/uL (150-450); Red Cell Distribution Width 14 % (10-15); White Blood Count 5.1 10^3/uL (3.5-10.8)
[2019-03-05 23:58] LABS: INR 1.08 (0.82-1.09)
[2019-03-06 00:08] LABS: EGFR African American 145.6 (>60); EGFR Non-African American 120.3 (>60)
--- NOTE | 2019-03-06 00:47 | HP ---
HISTORY AND PHYSICAL: DATE OF ADMISSION: 03/05/19 HISTORY: Belia Francisco is an 84-year-old woman admitted with weakness, shortness of breath, hypoxemia, and probable pneumonia. Today is Sunday. The patient had a busy weekend attending her granddaughter's wedding. Four nights ago, on Sunday night, she slept from 10 p.m. to 8 a.m., which is very unusual for her. Over the next 2 days, she has become more short of breath, weak. Her oxygen has gone down on home oximeter as low as to mid 70s. She denies cough, chest pain, or fever. She has had slight nausea, feels weaker than usual. She has had a sore throat for several weeks. Yesterday, she had a bloody nose. She presented to my office and appeared quite weak with O2 sats down into the high 80s. She is being admitted at this time. PAST MEDICAL HISTORY: Significant for the following medical problems: 1. COPD. 2. History of hyponatremia. 3. Chronic constipation. 4. History of cerebral infarction, TIA. 5. History of lung cancer, in remission. 6. History of depression. 7. Insomnia. 8. History of lower extremity cellulitis and edema. 9. History of hypertension. 10. Hypothyroidism, treated. 11. History of anxiety. 12. Hyperlipidemia. 13. Gastroesophageal reflux disease. 14. Chronic venous insufficiency of the lower extremities. 15. Osteoarthritis. 16. Autoimmune thyroiditis. 17. History of recurrent urinary tract infections. 18. History of iron deficiency anemia. 19. 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 20. History of subarachnoid hemorrhage, 2013. 21. Osteoporosis. PAST SURGICAL HISTORY: Includes: 1. Kyphoplasty in 2011. 2. Status post left lower lung lobectomy in 2004. 3. Status post right lower lung lobectomy in 2009. 4. History of cystocele and rectocele repair. 5. Status post total knee replacements in 2000 and 2009. 6. Status post total hysterectomy. 7. Status post tonsillectomy. 8. History of retinal surgery, right eye. MEDICATIONS: 1. Pantoprazole 20 mg daily. 2. Amlodipine 2.5 mg two daily. 3. Trazodone 50 mg one half to one at h.s. p.r.n. sleep. 4. Senna 1 to 3 every day as needed for constipation. 5. Previous prescription for calcitonin nasal spray, currently not taking. 6. Sodium chloride 1 g tablet every day. 7. Levothyroxine 50 mcg daily. 8. Lipitor 20 mg daily. 9. Doxazosin 1 mg twice a day. 10. Spiriva Respimat 2 puffs once a day. 11. Tylenol 500 mg q.4 hours p.r.n. pain. 12. ProAir 2 puffs every 4 hours as needed. 13. Metoprolol 50 mg twice a day. 14. Lisinopril 10 mg every day. 15. Baby aspirin 81 mg daily 16. Aleve 220 twice a day as needed for pain. 17. Multivites 1 every day. 18. Caltrate with D 1 tablet twice a day. 19. Milk of magnesia 30 mL daily as needed for constipation. ALLERGIES: LATEX. FAMILY HISTORY: Parents are . Father had lung cancer, colon cancer. Mother had hypertension, heart attack, stroke. She has one daughter who has had breast cancer. SOCIAL AND PERSONAL HISTORY: Habits: Tobacco, she is a former smoker. 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 The patient is retired. She lives with her daughter and granddaughter. REVIEW OF SYSTEMS: Positive for fatigue. HEENT: See above. Nodes: Negative. Heme: History of anemia, see above. Breasts: Negative. Endocrine: See above. Respiratory: See above. Cardiovascular: Positive for edema. She denies chest pain, palpitations. GI: See above. : Negative. ARSON AND BOMB INVESTIGATOR: Negative. Musculoskeletal: See above. Neuro: She denies headache or numbness. She is generally weak. PHYSICAL EXAMINATION GENERAL: She is an elderly white female appearing mildly dyspneic and weak in no acute distress. VITAL SIGNS: Blood pressure 150/78, pulse 93, respirations 24, temperature 98.7 , O2 saturation 87% on room air. HEENT: Atraumatic, normocephalic. Full EOMs. Mouth: Pharynx shows no significant erythema of the throat. Nodes without adenopathy. NECK: Supple. CHEST: Shows mild tachypnea. She has faint rales at the right base. HEART: Tachycardic. No murmurs, gallops, or rubs. ABDOMEN: Soft and nontender, no masses or organomegaly. EXTREMITIES: Showed trace edema. No calf tenderness. SKIN: Face is flushed. DIAGNOSTIC STUDIES/LAB DATA: CBC: WBC 6.2, H and H 10.2/30, MCV 88, PLT 231, 000. D-dimer is 465 (lower than previous D-dimer). Sodium 132, potassium 3.8, chloride 99, CO2 of 29, BUN and creatinine 15/0.50, glucose 96, magnesium 1.5. Rest of the comprehensive metabolic panel was abnormal for total protein/ albumin 6/3.1. C- reactive protein elevated at 161.36. BNP 372 (not as high as this has been in the past). Troponin I 0.04, repeated 0.05. Lactic acid normal at 0.6. Urinalysis: Yellow, cloudy, specific gravity 1.019, pH 6, dip sticks positive for 3+ esterase, 3+ wbc's, 2+ rbc's, squamous epithelial cells present, urine bacteria absent and urine glucose negative. Chest x-ray shows bilateral infiltrates. EKG shows normal sinus rhythm, poor anterior R-wave progression. R-wave progression different from previous EKG, possibly due to lead placement. IMPRESSION AND PLAN: 1. Weakness, tachypnea, likely due to pneumonia. The patient is being treated with azithromycin and ceftriaxone. 2. Possible urinary tract infection. Urine being cultured. Urinary tract infections will be covered with ceftriaxone. 3. History of hyponatremia. Sodium only slightly low. We will be giving IV fluids. 4. SIRS/sepsis. The patient is getting fluids of 1 L. 5. Hypoxemia. The patient is getting supplemental O2. 6. Gastroesophageal reflux disease. We will continue pantoprazole. 7. DVT prophylaxis. We will prescribe heparin SCDs. 8. Code status. The patient is DNR. MOLST form to be updated. [id number] #: [id number] MTDD
[2019-03-06 01:36] LABS: Troponin I 0.05 ng/mL (<0.04)
[2019-03-06] MEDS: NS 0.9% 1000 ML** 1,000 ML IV SCH (05:19)
[2019-03-06] MEDS: Levothyroxine TAB* 50 MCG TAB PO SCH (06:12)
[2019-03-06] MEDS: Heparin VIAL(*) 5000 UNITS/ML VIAL (FIVE THOUSAND) SUBCUT SCH ×3 (06:12→22:22)
[2019-03-06 07:41] LABS: ABS Eosinophils 0.2 10^3/ul (0-0.6); ABS Lymphocytes 0.4 10^3/ul (1.0-4.8); ABS Monocytes 0.4 10^3/ul (0-0.8); ABS Neutrophils 3.9 10^3/ul (1.5-7.7); Hematocrit 28 % (35-47); Hemoglobin 9.6 g/dL (12.0-16.0); Lymphocyte % 7.2 %; Mean Corpuscular HGB Conc 35 g/dL (31-36); Mean Corpuscular Hemoglobin 31 pg (27-31); Mean Corpuscular Volume 89 fL (80-97); Mean Platelet Volume 7.1 fL (7.4-10.4); Platelet Count 222 10^3/uL (150-450); Red Blood Count 3.14 10^6 /uL (3.70-4.87); Red Cell Distribution Width 14 % (10-15); White Blood Count 4.9 10^3/uL (3.5-10.8)
[2019-03-06] MEDS ORDERED: Furosemide IV* 10 MG/ML 2 ML VIAL (20 MG) IV ONE (08:00)
[2019-03-06 08:39] LABS: BUN/Creatinine Ratio 23.3 (8-20); Calcium 8.5 mg/dL (8.6-10.3); EGFR African American 169.3 (>60); EGFR Non-African American 139.9 (>60); Magnesium 1.5 mg/dL (1.9-2.7); Potassium 3.9 mmol/L (3.5-5.0)
[2019-03-06] MEDS ORDERED: NFT: Pantoprazole TAB (NF) 20 MG TAB PO SCH (09:00)
[2019-03-06] MEDS ORDERED: Magnesium Sulfate 2 GM IV* 2 GM/50 ML BAG IVPB ONE (09:17)
[2019-03-06] MEDS: Multivitamins/Minerals TAB PO SCH (10:47)
[2019-03-06] MEDS: Lisinopril TAB* 10 MG PO SCH (10:47)
[2019-03-06] MEDS: Metoprolol Succinate XL TAB* 50 MG PO SCH ×2 (10:47→22:24)
[2019-03-06] MEDS: Pantoprazole TAB * 40 MG TAB PO SCH (10:48)
[2019-03-06] MEDS: Doxazosin TAB* 2 MG PO SCH ×2 (10:48→22:23)
[2019-03-06] MEDS: Aspirin 81 mg CHEW TAB* 81 MG TAB.CHEW PO SCH (10:49)
[2019-03-06] MEDS: amLODIPine TAB* 5 MG PO SCH (10:49)
[2019-03-06] MEDS: Sodium Chloride TAB* 1 GM PO SCH (10:49)
[2019-03-06] MEDS: SPIRIVA Respimat* (tiotropium) 2.5 mcg/inh Inhaler INH SCH (10:51)
[2019-03-06] MEDS: Azithromycin 500 mg/250 ml NS 500 MG/250 ML BAG IVPB SCH (19:33)
[2019-03-06] MEDS: Atorvastatin* 20 MG TAB PO SCH (22:23)
[2019-03-06] MEDS: cefTRIAXone(*) 1 GM in NS 0.9% 50 ML* 50 ML IVPB SCH (22:23)
[2019-03-06] MEDS: Melatonin 3 MG TAB PO SCH (22:24)
[2019-03-07] MEDS: Heparin VIAL(*) 5000 UNITS/ML VIAL (FIVE THOUSAND) SUBCUT SCH ×3 (05:48→21:36)
[2019-03-07 05:49] LABS: ABS Eosinophils 0.3 10^3/ul (0-0.6); ABS Lymphocytes 0.5 10^3/ul (1.0-4.8); ABS Monocytes 0.4 10^3/ul (0-0.8); ABS Neutrophils 3.4 10^3/ul (1.5-7.7); Eosinophil % 5.6 %; Hematocrit 29 % (35-47); Hemoglobin 9.5 g/dL (12.0-16.0); Lymphocyte % 10.3 %; Mean Corpuscular HGB Conc 33 g/dL (31-36); Mean Corpuscular Hemoglobin 30 pg (27-31); Mean Corpuscular Volume 89 fL (80-97); Nucleated Red Blood Cells % 0.1; Platelet Count 247 10^3/uL (150-450); Red Blood Count 3.23 10^6 /uL (3.70-4.87); Red Cell Distribution Width 14 % (10-15); White Blood Count 4.6 10^3/uL (3.5-10.8)
[2019-03-07] MEDS: Levothyroxine TAB* 50 MCG TAB PO SCH (05:49)
[2019-03-07 06:09] LABS: Anion Gap 3 mmol/L (2-11); BUN/Creatinine Ratio 26.3 (8-20); Blood Urea Nitrogen 15 mg/dL (6-24); C Reactive Protein 123.89 mg/L (<8.01); CO2 Carbon Dioxide 32 mmol/L (22-32); Calcium 8.6 mg/dL (8.6-10.3); Chloride 101 mmol/L (101-111); EGFR African American 122.3 (>60); Glucose 104 mg/dL (70-100); Magnesium 1.9 mg/dL (1.9-2.7); Potassium 3.9 mmol/L (3.5-5.0); Sodium 136 mmol/L (135-145)
[2019-03-07] MEDS: Lisinopril TAB* 10 MG PO SCH (10:08)
[2019-03-07] MEDS: Sodium Chloride TAB* 1 GM PO SCH (10:08)
[2019-03-07] MEDS: Multivitamins/Minerals TAB PO SCH (10:08)
[2019-03-07] MEDS: Metoprolol Succinate XL TAB* 50 MG PO SCH ×2 (10:09→21:19)
[2019-03-07] MEDS: Doxazosin TAB* 2 MG PO SCH ×2 (10:09→21:19)
[2019-03-07] MEDS: Aspirin 81 mg CHEW TAB* 81 MG TAB.CHEW PO SCH (10:09)
[2019-03-07] MEDS: Pantoprazole TAB * 40 MG TAB PO SCH (10:09)
[2019-03-07] MEDS: amLODIPine TAB* 5 MG PO SCH (10:10)
[2019-03-07 10:26] LABS: Corrected Retic Count 1.2 % (0.5-1.5); Hematocrit for Retic CNT 29 % (35-47); Immature Retic Fraction 0.58
[2019-03-07 10:34] LABS: % Iron Saturation 11 % (15-55); Iron 24 ug/dL (50-212); Total Iron Binding Capacity 213 mcg/dL (250-450); Transferrin 152 mg/dL (203-362)
[2019-03-07 10:55] LABS: Ferritin 78.9 ng/mL (11-307)
[2019-03-07 10:59] LABS: Folate 19.53 ng/mL (>3.99)
[2019-03-07] MEDS: SPIRIVA Respimat* (tiotropium) 2.5 mcg/inh Inhaler INH SCH (14:15)
[2019-03-07] MEDS: Azithromycin 500 mg/250 ml NS 500 MG/250 ML BAG IVPB SCH (19:41)
[2019-03-07] MEDS: cefTRIAXone(*) 1 GM in NS 0.9% 50 ML* 50 ML IVPB SCH (21:11)
[2019-03-07] MEDS: Atorvastatin* 20 MG TAB PO SCH (21:18)
[2019-03-07] MEDS: Melatonin 3 MG TAB PO SCH (21:19)
[2019-03-07] MEDS: Senna TAB 8.6 mg* TAB PO PRN (21:36)
[2019-03-08 05:22] LABS: ABS Eosinophils 0.3 10^3/ul (0-0.6); ABS Lymphocytes 0.5 10^3/ul (1.0-4.8); ABS Monocytes 0.4 10^3/ul (0-0.8); ABS Neutrophils 3.3 10^3/ul (1.5-7.7); Eosinophil % 6.3 %; Hematocrit 29 % (35-47); Hemoglobin 9.7 g/dL (12.0-16.0); Lymphocyte % 10.3 %; Mean Corpuscular HGB Conc 33 g/dL (31-36); Mean Corpuscular Hemoglobin 29 pg (27-31); Mean Corpuscular Volume 89 fL (80-97); Mean Platelet Volume 6.5 fL (7.4-10.4); Platelet Count 248 10^3/uL (150-450); Red Cell Distribution Width 14 % (10-15); White Blood Count 4.5 10^3/uL (3.5-10.8)
[2019-03-08 05:39] LABS: C Reactive Protein 85.62 mg/L (<8.01); Calcium 8.9 mg/dL (8.6-10.3); EGFR African American 142.2 (>60); EGFR Non-African American 117.5 (>60); Magnesium 1.6 mg/dL (1.9-2.7); Potassium 4.2 mmol/L (3.5-5.0)
[2019-03-08] MEDS: Heparin VIAL(*) 5000 UNITS/ML VIAL (FIVE THOUSAND) SUBCUT SCH ×3 (06:00→22:01)
[2019-03-08] MEDS: Levothyroxine TAB* 50 MCG TAB PO SCH (06:01)
[2019-03-08] MEDS: Doxazosin TAB* 2 MG PO SCH ×2 (09:18→21:59)
[2019-03-08] MEDS: Metoprolol Succinate XL TAB* 50 MG PO SCH ×2 (09:18→22:00)
[2019-03-08] MEDS: Pantoprazole TAB * 40 MG TAB PO SCH (09:18)
[2019-03-08] MEDS: Sodium Chloride TAB* 1 GM PO SCH (09:18)
[2019-03-08] MEDS: Aspirin 81 mg CHEW TAB* 81 MG TAB.CHEW PO SCH (09:19)
[2019-03-08] MEDS: Multivitamins/Minerals TAB PO SCH (09:19)
[2019-03-08] MEDS: Lisinopril TAB* 10 MG PO SCH (09:19)
[2019-03-08] MEDS: amLODIPine TAB* 5 MG PO SCH (09:20)
[2019-03-08] MEDS ORDERED: Magnesium Sulfate IV* 3 GM in NS 0.9% 100 ML* 100 ML IVPB ONE (10:00)
[2019-03-08] MEDS: SPIRIVA Respimat* (tiotropium) 2.5 mcg/inh Inhaler INH SCH (11:51)
[2019-03-08] MEDS: Azithromycin 500 mg/250 ml NS 500 MG/250 ML BAG IVPB SCH (19:58)
[2019-03-08] MEDS: traZODone TAB* 50 MG TAB PO PRN (22:00)
[2019-03-08] MEDS: Atorvastatin* 20 MG TAB PO SCH (22:00)
[2019-03-08] MEDS: Melatonin 3 MG TAB PO SCH (22:00)
[2019-03-08] MEDS: Senna TAB 8.6 mg* TAB PO PRN (22:00)
[2019-03-08] MEDS: cefTRIAXone(*) 1 GM in NS 0.9% 50 ML* 50 ML IVPB SCH (22:01)
[2019-03-09] MEDS: Heparin VIAL(*) 5000 UNITS/ML VIAL (FIVE THOUSAND) SUBCUT SCH (05:20)
[2019-03-09] MEDS: Levothyroxine TAB* 50 MCG TAB PO SCH (05:20)
[2019-03-09 07:23] LABS: Magnesium 1.8 mg/dL (1.9-2.7)
[2019-03-09 07:58] VITALS: BP 139/68
[2019-03-09] MEDS: Pantoprazole TAB * 40 MG TAB PO SCH (08:58)
[2019-03-09] MEDS: Aspirin 81 mg CHEW TAB* 81 MG TAB.CHEW PO SCH (08:58)
[2019-03-09] MEDS: Multivitamins/Minerals TAB PO SCH (08:58)
[2019-03-09] MEDS: Sodium Chloride TAB* 1 GM PO SCH (08:58)
[2019-03-09] MEDS: Metoprolol Succinate XL TAB* 50 MG PO SCH (08:58)
[2019-03-09] MEDS: Lisinopril TAB* 10 MG PO SCH (08:59)
[2019-03-09] MEDS: Doxazosin TAB* 2 MG PO SCH (08:59)
[2019-03-09] MEDS: amLODIPine TAB* 5 MG PO SCH (08:59)
[2019-03-09 09:21] LABS: C Reactive Protein 56.49 mg/L (<8.01)
[2019-03-09] MEDS: SPIRIVA Respimat* (tiotropium) 2.5 mcg/inh Inhaler INH SCH (09:32)
[2019-03-09] MEDS ORDERED: SPIRIVA Respimat* (tiotropium) 2.5 mcg/inh Inhaler INH SCH (10:00)
--- NOTE | 2019-03-09 10:31 | PN ---
Subjective - Subjective Reason for Note: Discharge Note History: Discharge summary to be dictated by Dr. Eri Hankins She is feeling better this morning. She walked around the [place] yesterday with NC at FIO2 of 3 l - she was dyspneic by the end, but coped. Her distance to walk at home is far less. She is aware of coughing up material in her lungs. However, she denies chest pain, dyspnea at rest or at night (no paroxysmal nocturnal dyspnea). She denies much sputum or hemoptysis. She is afebrile and has no light headedness. She is able to give a good account of herself. She is constipated, but wants to return to her usual home bowel regimen. Active Problems: Active Problems Anemia (Acute) D64.9 Hypomagnesemia (Acute) E83.42 Pneumonia (Acute) J18.9 DVT prophylaxis (Chronic) [id number] - SQ heparin. HTN (hypertension) (Chronic) I10 - Continue metoprolol, lisinopril, doxazosin. History of CVA (cerebrovascular accident) (Chronic) Z86.73 History of lung cancer (Chronic) Z85.118 Hyperlipidemia (Chronic) E78.5 - Atorvastatin. Hyponatremia (Chronic) E87.1 Chronic problem, exacerbated by increased po intake with dx of UTI. Fluid restriction ordered. BMP 4 PM 12/12, 6 AM 12/13. Hypothyroidism (Chronic) E03.9 TSH add on requested. - Continue Levothyroxine. SIADH (syndrome of inappropriate ADH production) (Chronic) Current Medications: Current Medications Acetaminophen (Tylenol Tab*) 500 mg PO Q4H PRN PRN Reason: FEVER/PAIN Albuterol/Ipratropium (Duoneb (Albuterol 2.5 Mg/Ipratropium 0.5 Mg)) 1 neb INH Q4H PRN PRN Reason: SOB/WHEEZING Last Admin: 03/06/19 07:58 Dose: 1 neb Amlodipine Besylate (Norvasc Tab*) 5 mg PO DAILY [facility] Last Admin: 03/09/19 08:59 Dose: 5 mg Aspirin (Aspirin 81 Mg Chew Tab*) 81 mg PO DAILY [facility] Last Admin: 03/09/19 08:58 Dose: 81 mg Atorvastatin Calcium (Lipitor*) 20 mg PO BEDTIME [facility] Last Admin: 03/08/19 22:00 Dose: 20 mg Doxazosin Mesylate (Cardura Tab*) 1 mg PO BID [facility] Last Admin: 03/09/19 08:59 Dose: 1 mg Heparin Sodium (Porcine) (Heparin Vial(*)) 5,000 units SUBCUT Q8HR [facility] Last Admin: 03/09/19 05:20 Dose: 5,000 units Ceftriaxone Sodium 1 gm/ (Sodium Chloride) 50 mls @ 200 mls/hr IVPB Q24H [facility] Last Admin: 03/08/19 22:01 Dose: 200 mls/hr Azithromycin (Zithromax 500 Mg/250 Ml) 500 mg in 250 mls @ 250 mls/hr IVPB Q24H [facility] Last Admin: 03/08/19 19:58 Dose: 250 mls/hr Levothyroxine Sodium (Synthroid Tab*) 50 mcg PO DAILY@0600 [facility] Last Admin: 03/09/19 05:20 Dose: 50 mcg Lisinopril (Prinivil Tab*) 10 mg PO DAILY [facility] Last Admin: 03/09/19 08:59 Dose: 10 mg Magnesium Hydroxide (Milk Of [place] Liq*) 30 ml PO DAILY PRN PRN Reason: CONSTIPATION Last Admin: 03/09/19 09:07 Dose: 30 ml Melatonin (Melatonin) 3 mg PO BEDTIME [facility] Last Admin: 03/08/19 22:00 Dose: 3 mg Metoprolol Succinate (Toprol Xl Tab*) 50 mg PO BID [facility] Last Admin: 03/09/19 08:58 Dose: 50 mg Multivitamins/Minerals (Theragran/Minerals Tab*) 1 tab PO DAILY [facility] Last Admin: 03/09/19 08:58 Dose: 1 tab Naproxen (Naprosyn Tab*) 250 mg PO BID PRN PRN Reason: PAIN Pantoprazole Sodium (Protonix Tab*) 40 mg PO DAILY [facility] Last Admin: 03/09/19 08:58 Dose: 40 mg Senna (Senokot 8.6 Mg Tab*) 4 tab PO BEDTIME PRN PRN Reason: CONSTIPATION Last Admin: 03/08/19 22:00 Dose: 4 tab Sodium Chloride (Sodium Chloride Tab*) 1 gm PO DAILY [facility] Last Admin: 03/09/19 08:58 Dose: 1 gm Tiotropium [place] (Spiriva Respimat 2.5 Mcg) 2 puff INH DAILY [facility] Trazodone HCl (Desyrel Tab*) 25 mg PO BEDTIME PRN PRN Reason: MILD INSOMNIA Last Admin: 03/08/19 22:00 Dose: 25 mg Trazodone HCl (Desyrel Tab*) 50 mg PO BEDTIME PRN PRN Reason: MODERATE-SEVERE INSOMNIA Home Medications: Home Medications Medication Instructions Recorded Confirmed Type Atorvastatin* [Lipitor 20 MG*] 20 mg PO BEDTIME 12/21/15 03/05/19 History Levothyroxine TAB* [Synthroid TAB*] 50 mcg PO DAILY 12/21/15 03/05/19 History Metoprolol Succinate XL TAB* 50 mg PO BID 12/21/15 03/05/19 History [Toprol XL TAB*] Doxazosin TAB* [Cardura TAB*] 1 mg PO BID 11/19/17 03/05/19 History Lisinopril TAB* [Prinivil TAB 10 10 mg PO DAILY 11/19/17 03/05/19 History MG*] Aspirin 81 mg CHEW TAB* 81 mg PO DAILY tab.chew 04/08/18 03/05/19 Rx Naproxen Sodium [Aleve] 220 mg PO BID PRN #0 04/08/18 03/05/19 Rx Senna TAB 8.6 mg* [Senokot 8.6 mg 1 tab PO BEDTIME PRN tab 07/06/18 03/05/19 Rx TAB*] Calcitonin NASAL(NF) [Fortical(NR)] 200 units ALT NARE DAILY nasal.spr 03/05/19 Rx Magnesium Hydroxide LIQ* [Milk of 30 ml PO DAILY PRN #1 btl 08/24/18 03/05/19 Rx Magnesia LIQ*] Sodium Chloride TAB* 1 gm PO DAILY tab 08/24/18 03/05/19 Rx Acetaminophen TAB* [Tylenol TAB*] 500 mg PO Q4H PRN 03/05/19 03/05/19 History Albuterol inh POWDER (NF) [Proair 1 puff INH Q4HR PRN 03/05/19 03/05/19 History Respiclick] Calcium Carbonate/Vitamin D3 1 each PO BID 03/05/19 03/05/19 History [Calcium 600 + Vit D Tablet] Multivitamins/Minerals TAB* 1 tab PO DAILY 03/05/19 03/05/19 History [Theragran/minerals TAB*] Pantoprazole TAB (NF) [Protonix 20 mg PO DAILY 03/05/19 03/05/19 History TAB (NF)] Tiotropium [place] [Spiriva 2 puff IN DAILY 03/05/19 03/05/19 History Respimat] traZODone TAB* [Desyrel TAB*] 25 - 50 mg PO BEDTIME PRN 03/05/19 03/05/19 History Amlodipine Besylate [Amlodipine 5 mg PO DAILY 03/06/19 03/06/19 History 2.5 mg tab] Cephalexin CAP* [Keflex 500 CAP*] 500 mg PO BID #10 tab 03/09/19 03/05/19 Rx Allergies: Allergies Allergy/AdvReac Type Severity Reaction Status Date / Time latex Allergy Rash Verified 07/03/18 08:40 tape-latex Allergy Mild Rash Uncoded 07/02/18 12:45 Objective - Vital Signs Vital Signs: Vital Signs 03/08/19 03/08/19 03/08/19 11:15 15:15 16:07 Temperature 97.7 F 98.1 F Pulse Rate 71 77 Respiratory 18 18 Rate Blood Pressure 123/62 125/60 (mmHg) O2 Sat by Pulse 97 100 96 Oximetry 03/08/19 03/08/19 03/08/19 19:53 20:00 22:41 Temperature 99.7 F 97.9 F Pulse Rate 81 78 Respiratory 34 34 28 Rate Blood Pressure 123/59 126/61 (mmHg) O2 Sat by Pulse 99 95 Oximetry 03/09/19 03/09/19 03/09/19 04:15 07:47 08:00 Temperature 97.1 F 97.8 F Pulse Rate 70 70 Respiratory 22 18 20 Rate Blood Pressure 106/49 139/68 (mmHg) O2 Sat by Pulse 95 98 Oximetry - Intake and Output Intake and Output: Intake & Output 03/06/19 03/07/19 03/08/19 03/09/19 11:59 11:59 11:59 11:59 Intake Total 1858 1427 1420 638 Output Total 300 1675 300 Balance 1558 -248 1120 638 Weight 131 lb Intake: IV Fluids 1073 267 40 65 ABX - AZITHROMYCIN 10 20 20 ABX - CEFTRIAXONE 10 20 20 NS (0.9%) 282 65 IVPB 305 320 300 353 ABX - AZITHROMYCIN 250 250 250 250 ABX - CEFTRIAXONE 55 50 50 50 NS (0.9%) 53 Oral 505 750 8308 220 Output: Urine 300 1675 300 Other: Estimated Void Medium Small # Voids 3 1 ADLs: Meal Record Start: 03/05/19 15: 23 Freq: DAILY@0900,1400,1800 Status: Active Protocol: Created 03/05/19 15:23 System (Rec: 03/05/19 15:23 System TELE-C06) Document 03/06/19 09:00 [id number] (Rec: 03/06/19 09:26 [id number] TELE-C07) Document 03/06/19 14:00 [id number] (Rec: 03/06/19 14:07 [id number] TELE-C07) Document 03/06/19 18:00 [id number] (Rec: 03/06/19 18:24 [id number] TELE-C09) Document 03/07/19 09:00 [id number] (Rec: 03/07/19 12:18 [id number] TELE-C09) Document 03/07/19 14:00 [id number] (Rec: 03/07/19 14:35 [id number] TELE-C09) Document 03/07/19 18:00 [id number] (Rec: 03/07/19 20:14 [id number] TELE-C07) Document 03/08/19 09:00 [id number] (Rec: 03/08/19 09:54 [id number] TELE-C01) Document 03/08/19 14:00 [id number] (Rec: 03/08/19 15:14 [id number] TELE-C09) Document 03/09/19 09:00 [id number] (Rec: 03/09/19 09:30 [id number] TELE-C07) Intake and Output Start: 03/05/19 15: Freq: DAILY@0600,1400,2200 Status: Active Protocol: Created 03/05/19 15:23 System (Rec: 03/05/19 15:23 System TELE-C06) Document 03/05/19 22:00 [id number] (Rec: 03/05/19 22:09 HPZ0751 TELE-C10) Document 03/06/19 06:00 [id number] (Rec: 03/06/19 06:26 CLN0332 TELE-C01) Document 03/06/19 14:00 [id number] (Rec: 03/06/19 14:22 [id number] TELE-C07) Document 03/06/19 22:00 [id number] (Rec: 03/06/19 22:13 [id number] TELE-C09) Document 03/07/19 06:00 [id number] (Rec: 03/07/19 06:28 IQT9701 TELE-C05) Document 03/07/19 14:00 [id number] (Rec: 03/07/19 14:35 [id number] TELE-C09) Document 03/07/19 22:00 ROQ5601 (Rec: 03/07/19 22:18 [id number] TELE-C07) Document 03/08/19 06:00 [id number] (Rec: 03/08/19 06:14 [id number] TELE-C07) Document 03/08/19 14:00 [id number] (Rec: 03/08/19 15:14 [id number] TELE-C09) Document 03/08/19 22:00 [id number] (Rec: 03/08/19 22:16 [id number] TELE-C01) Document 03/09/19 06:00 [id number] (Rec: 03/09/19 06:57 [id number] TELE-C01) - Physical Exam General Physical Exam Comment: She is warm and well perfused, in no distress and fully aware of her situation. General: No Cyanosis, No Anemia, No Jaundice, No Clubbing Lungs and Chest: Yes: Chest Expansion Full, Chest Expansion Symetrica, Percussion Note Resonant, Vessicular Breath Sounds, Crackles - some basal crackles. No: Wheezes, Respiratory Distress, Use of Accessory Muscles Heart Rate and Rhythm: Regular Additional Cardiovascular: Yes: Normal Heart Sounds. No: Heart Murmur, Pedal Edema Abdominal Exam: Yes: Soft. No: Distention, Abdominal Mass - Extremities Cranial Nerves II-XII Intact: Yes Limbs: Normal Power - Neuro Orientation: A/O x3 Psychiatric: Normal Speech: Normal Results - Results Lab Results: Laboratory Results - last 24 hr 03/09/19 06:18 Magnesium 1.8 L C-Reactive Protein 56.49 H Radiology Results: Patient Name: BELIA FRANCISCO Medical Record#: [id number] Ordering Physician: Eri Hankins MD Acct.#: [id number] : 1935 Age: 84 Sex: F Location: [address] [place] [address] MEDICAL/TELEMETRY Exam Date: 03/07/19799 ADM Status: ADM IN Order Information: CHEST PA & LAT 2 VWS Accession Number: [id number] CPT: 50701 HISTORY: pneumonia COMPARISONS: March 05, 2019 VIEWS: 3: Frontal and lateral views of the chest. FINDINGS: CARDIOMEDIASTINAL SILHOUETTE: The cardiomediastinal silhouette is stable. THIAGO: The thiago are normal. PLEURA: There is blunting of costophrenic angles bilaterally. LUNG PARENCHYMA: There is hyperinflation with flattening of the diaphragm and expansion of the AP diameter of the chest. There is diffuse pattern of reticular opacification with indistinct pulmonary vessels. ABDOMEN: The upper abdomen is clear. There is no subphrenic gas. BONES AND SOFT TISSUES: The patient is status post percutaneous vertebral augmentation. OTHER: None. IMPRESSION: CBD. CARDIOMEGALY. PULMONARY INTERSTITIAL EDEMA. SMALL BILATERAL PLEURAL EFFUSIONS. <Electronically signed by Rajesh Sepulveda MD in OV> 03/07/19944 Dictated By: Rajesh Sepulveda MD Dictated Date/Time: 03/07/19943 Transcribed Date/Time: 03/07/19943 Copy to: CC:Eri Hankins MD Imaging - [facility] Imaging - [facility] Imaging - [facility] [address] [address] ph ([phone]) ph ([phone]) ph ([phone]) This report is only to be considered final once signed by the Provider(s) as displayed in the "<Electronically Signed by >" field (s). Absence of a signature indicates the report is in a draft status and still needs to be finalized. In the event this document was created by someone other than the signing Provider, the individual initiating the document will be listed in the "Entered by:" or "Dictated by:" morales. 1 of 1 Assessment - Problem List Assessment: Patient Problems Anemia (Acute) Hypomagnesemia (Acute) Pneumonia (Acute) DVT prophylaxis (Chronic) HTN (hypertension) (Chronic) History of CVA (cerebrovascular accident) (Chronic) History of lung cancer (Chronic) Hyperlipidemia (Chronic) Hyponatremia (Chronic) Hypothyroidism (Chronic) SIADH (syndrome of inappropriate ADH production) (Chronic) Constipation (Acute) Plan: Pneumonia (Acute) She has resolving pneumonia and is now taking cephalexin - I recommend another 5 days. Her CRP and neut% are both coming down and she is clinically improved Anemia (Acute) I think part of this is due to an acute phase response and expect she will return to baseline over the next few weeks Hypomagnesemia (Acute) Her magnesium is 1.8 mg/dl - this is acceptable. Constipation (Acute) I discussed the use of flax seed, coffee and to be careful of too much senna (melanosis coli) Secondary diagnoses - stable DVT prophylaxis (Chronic) HTN (hypertension) (Chronic) History of CVA (cerebrovascular accident) (Chronic) History of lung cancer (Chronic) Hyperlipidemia (Chronic) Hyponatremia (Chronic) Hypothyroidism (Chronic) SIADH (syndrome of inappropriate ADH production) (Chronic) I discussed the above with Belia and Jeannette Francisco. She is fit enough for discharge. She will follow with Dr. Eri Hankins in the first half of the week. Disposition Home Condition at discharge Fair
--- NOTE | 2019-03-09 23:32 | DS ---
DISCHARGE SUMMARY: DATE OF ADMISSION: 03/05/19 DATE OF DISCHARGE: 03/09/19 DISCHARGE DIAGNOSES: 1. Pneumonia. 2. Chronic obstructive pulmonary disease. 3. Chronic constipation. 4. History of hyponatremia. 5. History of cerebral infarction, transient ischemic attack. 6. History of bilateral lung cancer, status post bilateral resections, in remission. 7. History of depression. 8. History of insomnia. 9. Hypertension. 10. Hypothyroidism. 11. History of anxiety. 12. Hyperlipidemia. 13. Gastroesophageal reflux disease. 14. Chronic venous insufficiency of the lower extremities. 15. Osteoarthritis. 16. Autoimmune thyroiditis. 17. History of recurrent urinary tract infections. 18. Iron deficiency anemia. 19. 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 20. History of subarachnoid hemorrhage in 2013. 21. Osteoporosis. 22. Possible urinary tract infection, culture pending. 23. Hypomagnesemia. 24. Elevated troponins, likely due to stress ischemia. HISTORY: Belia Francisco is an 84-year-old woman admitted with shortness of breath and weakness. Please see the dictated admission note for details of the present illness, past medical history, family history, social and personal history, review of systems, and physical examination. DIAGNOSTIC STUDIES/LAB DATA: Laboratory Data: CBC on admission: WBC 6.2, H and H 10.2/30, MCV 88, PLT 231,000; H and H remained relatively stable and was 9.7/29 at the time of discharge with a white count of 4.5 on 03/08/19. Retic count was 1.8; corrected 1.2, index 0.6. INR 1.08, PTT 29. D-dimer 465, which is slightly elevated, but less than it had been and normal for age. Chemistries : Sodium 132, potassium 3.8, chloride 99, CO2 of 29, BUN and creatinine 15/0.50 , glucose 96, calcium 9.1, magnesium 1.5. Rest of her comprehensive metabolic panel was within normal limits except for total protein 6.0, albumin 3.1. BNP was mildly elevated at 372 and went down to 292 on 03/07/19. TSH normal at 2.20. B12 normal at 338, folate normal at 19.53. Troponins were 0.04, 0.05, 0.05. Iron studies: Ferritin 78.9, iron 24 (low), TIBC 213 (low), percent saturation 11% (low). CRP started at 161, came down to 56.49 on 03/09/19 on the day of discharge. Phosphorus was normal at 3. Magnesium was low at 1.5 and went up as high as 1.9 on 03/07/19, then down on 03/08/19 to 1.6, and on of 1.8. Urinalysis: Yellow, cloudy, specific gravity 1.019, pH 6, dip sticks positive for 3+ esterase, 3+ wbc's, 2+ rbc's, squamous epithelial cells present. Urine culture is pending at the time of discharge; it shows so far Gram-negative bacilli in 25,000 to 50,000 colonies, awaiting ID and sensitivities. Urine for Legionella and Streptococcus pneumoniae was negative. Blood cultures x2 were negative at 4 days. Chest x-ray on admission 03/05/19 showed what appeared to be small bilateral pleural effusions and bilateral infiltrates to my eyes, although not officially read. Chest x-ray on 03/07/19 showed cardiomegaly, pulmonary interstitial edema , small bilateral pleural effusions. I did not feel it was significantly changed. EKG on 03/05/17 showed sinus rhythm, PACs, consider LVH, delayed anterior R- wave progression, changes since the previous record may reflect altered lead placement anteriorly. Otherwise, no significant change since 07/03/18. EKG on 03/06/19 showed sinus rhythm, consider LVH, possible altered lead placement anteriorly; otherwise, no significant changes. Pulse oximetry 03/06/19 done overnight showed O2 sats ranging from 68% to 98%. It was less than 88% for 12.6% of the time. Oximetry done for oxygen home qualification showed 88% on 2 L with ambulation, 96% at rest; on 3 L it was 94%. HOSPITAL COURSE: The patient was initially admitted and felt to have pneumonia , treated with azithromycin and ceftriaxone. She was also thought to have a possible urinary tract infection. Her sodium was always slightly low. She was given IV fluids, but did become volume overloaded and was subsequently given Lasix. She was felt to have SIRS/sepsis. She improved with antibiotics. She needed supplemental oxygen; this was provided. Blood work suggested that she might have an iron deficiency anemia. This will be treated as an outpatient. At the time of discharge, she is feeling better. Vital Signs: Blood pressure 139/68, pulse 70, respirations 18, temperature 97.8. She is on nasal cannula O2 at 2 L with an O2 sat of 98% to 99%. She is being discharged in fair but improved condition. She is going home. Daughter requested she be discharged today because she has to travel for work. MEDICATIONS AT THE TIME OF DISCHARGE: As follows: 1. Levothyroxine 50 mcg daily. 2. Metoprolol 50 mg twice a day. 3. Atorvastatin 20 mg at bedtime. 4. Doxazosin 1 mg twice a day. 5. Lisinopril 10 mg daily. 6. Aspirin 81 mg daily. 7. Naproxen 220 mg b.i.d. p.r.n. 8. Senna 4 tablets at bedtime. 9. Sodium chloride 1 g daily. 10. Milk of Magnesia 30 cc daily as needed. 11. MultiVites 1 daily. 12. Calcium 1 daily. 13. Pantoprazole 20 mg 1 daily. 14. Trazodone 25 mg to 50 mg at bedtime as needed. 15. Albuterol as needed. 16. Spiriva 2 puffs daily. 17. Tylenol as needed. 18. Amlodipine 5 mg daily. 19. Keflex 500 mg twice a day. The patient had received ceftriaxone and azithromycin in the hospital. I will start her on iron as an outpatient. This will be when she comes in for followup. DISCHARGE INSTRUCTIONS: She is to come for followup this week. She is to use oxygen. She will be seen by visiting nurses. Activities as tolerated. [id number]/[facility] #: [id number] JUSTICE
== END 2019-03-09 11:42 | disposition home health service (06) | DRG 871 ==
LOC: MEDTELE 15:00 → OBSVTOIN 03-06 15:00
PROVIDERS: ADMIT Internal Medicine Geriatric Medicine; ATTEND Internal Medicine
DX: A41.9 Sepsis, unspecified organism (principal); J18.9 Pneumonia, unspecified organism; J44.0 Chronic obstructive pulmonary disease with (acute) lower respiratory infection; N39.0 Urinary tract infection, site not specified; E22.2 Syndrome of inappropriate secretion of antidiuretic hormone; K59.09 Other constipation; E03.9 Hypothyroidism, unspecified; E78.5 Hyperlipidemia, unspecified; K21.9 Gastro-esophageal reflux disease without esophagitis; I87.2 Venous insufficiency (chronic) (peripheral); M19.90 Unspecified osteoarthritis, unspecified site; Z66 Do not resuscitate; E06.3 Autoimmune thyroiditis; M81.0 Age-related osteoporosis without current pathological fracture; H54.61 Unqualified visual loss, right eye, normal vision left eye; E83.42 Hypomagnesemia; R74.8 Abnormal levels of other serum enzymes; D50.9 Iron deficiency anemia, unspecified; G47.00 Insomnia, unspecified; R09.02 Hypoxemia; F10.21 Alcohol dependence, in remission; Z96.659 Presence of unspecified artificial knee joint; Z86.73 Personal history of transient ischemic attack (TIA), and cerebral infarction without residual deficits; Z85.118 Personal history of other malignant neoplasm of bronchus and lung; Z87.891 Personal history of nicotine dependence; Z79.1 Long term (current) use of non-steroidal anti-inflammatories (NSAID); Z79.51 Long term (current) use of inhaled steroids; Z79.899 Other long term (current) drug therapy; Z91.040 Latex allergy status; Z80.1 Family history of malignant neoplasm of trachea, bronchus and lung; Z80.0 Family history of malignant neoplasm of digestive organs; Z80.3 Family history of malignant neoplasm of breast; Z82.49 Family history of ischemic heart disease and other diseases of the circulatory system; Z82.3 Family history of stroke
CPT/HCPCS: 36415; 71046; 80048; 80053; 81003; 81015; 82565; 82607; 82728; 82746; 83540; 83550; 83605; 83735; 83880; 84100; 84443; 84484; 84520; 85025; 85045; 85379; 85610; 85730; 86140; 87040; 87086; 87899; 93005; 94640; A9270-GY; G0378; J0456; J0696; J1644; J1940; J3475; J3535

== ENCOUNTER 2019-05-19 19:12 | Emergency (ER) | payer MEDICARE, BC ==
--- OUTSIDE RECORDS SUMMARY | 2019-05-19 19:25 | XMS REPORT | Continuity of Care Document ---
:1935 External Reference #:[id number] Author Name Jeannette Chandra O.D. Address [address] [place] [address] Care Team Providers Name Role Phone Eri Hankins M.D. - Internal Medicine Care Team Information Erp Specialist [phone] Problems Active Problems Provider Date Carcinoma in situ of lung Onset: Hypothyroidism Onset: Essential hypertension Onset: Osteoporosis Onset: Osteoarthritis Onset: Epiretinal membrane Jeannette Chandra O.D. Onset: 12/18/2014 Corneal endothelial dystrophy Jeannette Chandra O.D. Onset: 12/18/2014 Old partial retinal detachment Jeannette Chandra O.D. Onset: 12/18/2014 Postsurgical chorioretinal scar Jeannette Chandra O.D. Onset: 06/29/2015 Vitreous degeneration Jeannette Chandra O.D. Onset: 09/07/2015 Hypercholesterolemia Onset: Postsurgical chorioretinal scar Jeannette Chandra O.D. Onset: 06/20/2016 Regular astigmatism Jeannette Chandra O.D. Onset: 01/04/2017 Myopia Jeannette Chandra O.D. Onset: 01/04/2017 Presbyopia Jeannette Chandra O.D. Onset: 01/04/2017 Social History Type Date Description Comments Sex Unknown ETOH Use Denies alcohol use Tobacco Use Start: Unknown End: Unknown Patient is a former smoker Recreational Drug Use Denies Drug Use Smoking Status Reviewed: 05/02/19 Patient is a former smoker Allergies, Adverse Reactions, Alerts Description No Known Drug Allergies Medications Active Medications SIG Qnty Indications Ordering Date Provider Adryan Cano Instill 1 Drop Into 45ml Jeannette Chandra, 12/17/2018 2% Solution Left Eye 3 Times A O.D. Day Sulfamethoxazole/Trim Jacinto Trinidad M.D. ethoprim DS 800-160mg Tablets Lisinopril Take 1 Tablet By Unknown 20mg Tablets Mouth Every Day Levothyroxine Sodium Take 1 Tablet By Unknown Mouth Every Day 50mcg Tablets Metoprolol Succinate Take 1 Tablet By Unknown ER Mouth Twice A Day 50mg Tablets ER 24HR Doxazosin Mesylate Take 1 Tablet By Unknown 1mg Mouth once A Day Tablets Calcium 1200 Unknown Multiple Vitamins Unknown Tablets Atorvastatin Calcium Unknown 20mg Tablets Fluconazole Unknown 200mg Tablets Silver Sulfadiazine Unknown 1% Cream Amlodipine Besylate nightly Eri Hankins MEliezerDEliezer 2.5mg Tablets Nexium Unknown 20mg Capsules DR Pinto dissolve 17gm in Unknown [id number] Powder 4-8ox liquid and drink twice a day as needed for constipation Amoxicillin Take 4 Capsules 1 Unknown 500mg Hour Prior To Dental Capsules Appointment. 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 detachment, right eye Plan of Treatment Future Appointment(s):10/31/2019 2:00 pm - Jeannette Chandra O.D. at [facility], 05/02/2019 - Jeannette Chandra O.D.H18.51 Endothelial corneal dystrophyComments:You have Fuch's corneal dystrophy. This may cause reduced vision. If you are noticing blurred vision, especially in the morning, use Adryan 128 ointment in affected eyes before bedtime or adryan drops during the dayH35.372 Puckering of macula, left eyeComments:A Macular Pucker is a wrinkling of the retina tissue. It can cause distortion in your vision. Pleasecall the office if you notice a decrease or new distortion in your vision.Follow up:6 months DFE/OCT macH59.811 Chorioretinal scars after surgery for detachment, right eyeComments:Smoking can increase the risk of developing or worsening any eye related disease, as well as affect your overall health. If you are a smoker, we strongly recommend that you quit.If you are not a smoker , we strongly recommend that you do not start. Functional Status Description No Information Available Mental Status Description No Information Available Referrals Description No Information Available
--- OUTSIDE RECORDS SUMMARY | 2019-05-19 19:25 | XMS REPORT ---
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, disease, 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, anemia, [id number] unspecified unspecified Essential Essential Diagnosis Active Dianelys (primary) (primary) 1- Chance hypertensio hypertensio [id number] n n H54.61 H54.61 Diagnosis Active Dianelys 1- Fletcher [id number] Pain frequent Pain Mgmt Resolve 2018-052019-03-28 Rach pain d 0-23 14:24:00 [place] 10:30: [id number] 00 Respiratory dyspnea Respirator Active 2018-05 Rach present y 0- [place] 10:30: [id number] 00 Respiratory oxygen Respirator Active 2018-05 Rach treatments y 0-23 [place] in home 10:30: [id number] 00 Respiratory CPAP Respirator Active 2018-05 Rach treatments y 0-23 [place] in home 10:30: [id number] 00 Endo/Christophe anti-coagul Endo/Christophe Resolve 2018-052019-03-20 Rach ation d 0-23 11:00:00 [place] therapy 10:30: [id number] 00 Integument skin Integument Resolve 2018-052019-03-26 Rach integrity d 0-23 15:07:00 [place] risk 10:30: [id number] 00 Nutrition nutritional Nutrition Resolve 2018-052019-03-28 Rach restriction d 0-23 14:24:00 [place] s 10:30: [id number] 00 Elimination urinary Eliminatio Resolve 2018-052019-03-26 Rach incontinenc n d 0-23 15:07:00 [place] e 10:30: [id number] 00 Elimination constipatio Eliminatio Resolve 2018-052019-03-26 Rach n n d 0-23 15:07:00 [place] 10:30: [id number] 00 Neuro confusion Neuro/Emot Active 2018-05 Rach present ion 0-23 [place] 10:30: [id number] 00 Neuro impaired Neuro/Emot Active 2018-05 Rach decision-ma ion 0-23 [place] abdirahman 10:30: [id number] 00 Activity ADL Activity Active 2018-05 Rach assistance 0-23 [place] required 10:30: [id number] 00 Activity self-care Activity Resolve 2018-052019-03-26 Rach deficit d 0-23 15:07:00 [place] 10:30: [id number] 00 Safety fall risk Safety Active 2018-05 Rach factor 0-23 [place] present 10:30: [id number] 00 Safety can be left Safety Active 2018-05 Rach alone for 0-23 [place] only short 10:30: [id number] periods 00 Safety structural Safety Active 2018-05 Rach barriers 0-23 [place] present 10:30: [id number] 00 Safety risk for Safety Active 2018-05 Rach hospitaliza 0-23 [place] tion 10:30: [id number] 00 Medication oral med Meds Active 2018-05 Rach assistance 0-23 [place] required 10:30: [id number] 00 Musculoskel transfer Musculoske Resolve 2018-052019-03-26 Rach etal assistance letal d 0-23 15:07:00 Pet[place] required 10:30: [id number] 00 Musculoskel requires Musculoske Resolve 2018-052019-03-26 Rach etal human letal d 0-23 15:07:00 [place] assist to 10:30: [id number] leave home 00 Bed mobility/tr PT/OT: Bed Resolve 2018-052019-04-02 Daniel Mobility/Tr ansfer Mobility/T d 0-23 14:06:00 Anguish ansfer device ransfer 11:55: [id number] present 00 Balance/End balance/heart coordinator PT/OT: Resolve 2018-052019-04-02 Daniel lynn rdination Balance/En d 0-23 14:06:00 Anguish deficit durance 11:55: [id number] 00 Balance/End endurance PT/OT: Resolve 2018-052019-04-02 Daniel urance deficit Balance/En d 0-23 14:06:00 Anguish durance 11:55: [id number] 00 Gait/Locomo gait PT/OT: Resolve 2018-052019-04-02 Daniel tion assistive Gait/Locom d 0-23 14:06:00 Anguish problems device otion 11:55: [id number] present 00 Gait/Locomo gait PT/OT: Resolve 2018-052019-04-02 Daniel tion deficit Gait/Locom d 0-23 14:06:00 Anguish problems otion 11:55: [id number] 00 Nutrition nutritional Nutrition Active 2018-05 Daniel restriction 1-11 Anguish s 12:50: [id number] 00 Allergies, Adverse Reactions, Alerts Allergy Allergy Type Status Severity Reaction(s) Onset Inactive Treating Comments Name Date Date Clinician latex Base Active Unknown Reaction 2019-02 Interface Ingredient Unknown -17 tape-late Unknown Active Unknown Reaction 2019-02 Unknown x Unknown -17 Medications Ordered Filled Start Stop Current Ordering Indication Dosage Frequency Signature Comments Components Medication Medication Date Date Medication? Clinician (SIG) Name Name atorvastagem atorvastati 2018-05 Yes Hankins Unknown Unknown n 20 mg n 20 mg 0-23 MD,Eri tablet tablet metoprolol metoprolol 2018-05 Yes Hankins Unknown Unknown succinate succinate 0-23 MD,Eri ER 50 mg ER 50 mg tablet,exte tablet,exte nded nded release 24 release 24 hr hr doxazosin 2 doxazosin 2 2018-05 Hankins Unknown Unknown mg tablet mg tablet 0-23 11- MD,Eri lisinopril lisinopril 2018-05 Yes Hankins Unknown Unknown 10 mg 10 mg 0-23 MD,Eri tablet tablet aspirin 81 aspirin 81 2018-05 Yes Hankins Unknown Unknown mg chewable mg chewable 0-23 MD,Eri tablet tablet sennosides sennosides 2018-05 Yes Hankins Unknown Unknown 8.6 mg 8.6 mg 0-23 MD,Eri tablet tablet magnesium magnesium 2018-05 Yes Hankins Unknown Unknown hydroxide hydroxide 0-23 MD,Eri oral oral suspension suspension calcitriol calcitriol 2018-05 Yes Hankins Unknown Unknown 1 mcg/mL 1 mcg/mL 0-23 MD,Eri oral oral solution solution pantoprazol pantoprazol 2018-05 Yes Hankins Unknown Unknown e 20 mg e 20 mg 0-23 MD,Eri tablet,esha tablet,esha yed release yed release cephALEXin cephALEXin 2018-05- Yes Hankins Unknown Unknown 500 mg 500 mg 0-23 10-25 MD,Eri capsule capsule Spiriva Spiriva 2018-05 Yes Hankins Unknown Unknown Respimat Respimat 0-23 MD,Eri 2.5 2.5 mcg/actuati mcg/actuati on solution on solution for for inhalation inhalation albuterol albuterol 2018-05 Yes Hankins Unknown Unknown sulfate HFA sulfate HFA 0-23 MD,Eri 90 90 mcg/actuati mcg/actuati on aerosol on aerosol inhaler inhaler traZODone traZODone 2018-05 Yes Hankins Unknown Unknown 50 mg 50 mg 0-23 MD,Eir tablet tablet Acetaminoph Acetaminoph 2018-05 Yes Hankins Unknown Unknown en Pain en Pain 0-23 MD,Eri Relief 500 Relief 500 mg tablet mg tablet amLODIPine amLODIPine 2018-05 Yes Hankins Unknown Unknown 5 mg tablet 5 mg tablet 0-23 11- MD,Eri FLUoxetine FLUoxetine 2018-05 Yes Hankins Unknown Unknown 10 mg 10 mg 0-23 MD,Eri capsule capsule Calcium 600 Calcium 600 2018-05 Yes Hankins Unknown Unknown + D(3) 600 + D(3) 600 0-23 MD,Eri mg (1,500 mg (1,500 mg)-200 mg)-200 unit tablet unit tablet Multivitami Multivitami 2018-05 Yes Hankins Unknown Unknown n 50 Plus n 50 Plus 0-23 MD,Eri tablet tablet levothyroxi levothyroxi 2018-05 Yes Hankins Unknown Unknown ne 50 mcg ne 50 mcg 0-23 MD,Eri tablet tablet naproxen naproxen 2018-05 Yes Hankins Unknown Unknown sodium 220 sodium 220 0-23 MD,Eri mg tablet mg tablet doxazosin 2 doxazosin 2 2018-05 Yes Hankins Unknown Unknown mg tablet mg tablet 05-21 Eri CAMARILLO amLODIPine amLODIPine 2018-05 Yes Hankins Unknown Unknown 5 mg tablet 5 mg tablet 05-21 Eri CAMARILLO Vital Signs Vital Name Observation Time Observation Value Comments SYSTOLIC mm[Hg] 2019-04-02 18:08:50 112 mm[Hg] mm[Hg] Method: Sit SYSTOLIC mm[Hg] 2019-03-12 18:08:29 120 mm[Hg] mm[Hg] Method: Stand DIASTOLIC mm[Hg] 2019-04-02 18:08:50 50 mm[Hg] mm[Hg] Method: Sit DIASTOLIC mm[Hg] 2019-03-12 18:08:29 60 mm[Hg] mm[Hg] Method: Stand PULSE 2019-04-02 18:08:50 73 /min /min RESP RATE 2019-04-10 18:08:58 18 /min /min TEMP 2019-04-02 18:08:50 98.2 [degF] Procedures This patient has no known procedures. Results This patient has no known results.
--- OUTSIDE RECORDS SUMMARY | 2019-05-19 19:25 | XMS REPORT ---
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 [id number] disease, disease, 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, anemia, [id number] unspecified unspecified Essential Essential Diagnosis Active Dianelys (primary) (primary) 1- Chance hypertensio hypertensio [id number] n n H54.61 H54.61 Diagnosis Active Dianelys 1- Fletcher [id number] Pain frequent Pain Mgmt Resolve 2018-052019-03-28 Rach pain d 0-23 14:24:00 [place] 10:30: [id number] 00 Respiratory dyspnea Respirator Resolve 2018-052019-04-04 Rach present y d 0-23 12:38:00 [place] 10:30: [id number] 00 Respiratory oxygen Respirator Resolve 2018-052019-04-04 Rach treatments y d 0-23 12:38:00 [place] in home 10:30: [id number] 00 Respiratory CPAP Respirator Resolve 2018-052019-04-04 Rach treatments y d 0-23 12:38:00 [place] in home 10:30: [id number] 00 Endo/Christophe anti-coagul Endo/Christophe Resolve 2018-052019-03-20 Rach ation d 0-23 11:00:00 [place] therapy 10:30: [id number] 00 Integument skin Integument Resolve 2018-052019-03-26 Rach integrity d 0-23 15:07:00 [place] risk 10:30: [id number] 00 Nutrition nutritional Nutrition Resolve 2018-052019-03-28 Rach restriction d 0-23 14:24:00 [place] s 10:30: [id number] 00 Elimination urinary Eliminatio Resolve 2018-052019-03-26 Rach incontinenc n d 0-23 15:07:00 [place] e 10:30: [id number] 00 Elimination constipatio Eliminatio Resolve 2018-052019-03-26 Rach n n d 0-23 15:07:00 [place] 10:30: [id number] 00 Neuro confusion Neuro/Emot Resolve 2018-052019-04-04 Rach present ion d 0-23 12:38:00 [place] 10:30: [id number] 00 Neuro impaired Neuro/Emot Resolve 2018-052019-04-04 Rach decision-ma ion d 0-23 12:38:00 [place] abdirahman 10:30: [id number] 00 Activity ADL Activity Resolve 2018-052019-04-04 Rach assistance d 0-23 12:38:00 [place] required 10:30: [id number] 00 Activity self-care Activity Resolve 2018-052019-03-26 Rach deficit d 0-23 15:07:00 [place] 10:30: [id number] 00 Safety fall risk Safety Resolve 2018-052019-04-04 Rach factor d 0-23 12:38:00 [place] present 10:30: [id number] 00 Safety can be left Safety Resolve 2018-052019-04-04 Rach alone for d 0-23 12:38:00 [place] only short 10:30: [id number] periods 00 Safety structural Safety Resolve 2018-052019-04-04 Rach barriers d 0-23 12:38:00 [place] present 10:30: [id number] 00 Safety risk for Safety Resolve 2018-052019-04-04 Rach hospitaliza d 0-23 12:38:00 [place] tion 10:30: [id number] 00 Medication oral med Meds Resolve 2018-052019-04-02 Rach assistance d 0-23 15:00:00 [place] required 10:30: [id number] 00 Musculoskel transfer Musculoske Resolve 2018-052019-03-26 Rach etal assistance letal d 0-23 15:07:00 [place] required 10:30: [id number] 00 Musculoskel requires Musculoske Resolve 2018-052019-03-26 Rach etal human letal d 0-23 15:07:00 [place] assist to 10:30: [id number] leave home 00 Bed mobility/tr PT/OT: Bed Resolve 2018-052019-04-02 Daniel Mobility/Tr ansfer Mobility/T d 0-23 14:06:00 Anguish ansfer device ransfer 11:55: [id number] present 00 Balance/End balance/cooker soda PT/OT: Resolve 2018-052019-04-02 Daniel lynn rdination Balance/En d 023 14:06:00 Anguish deficit durance 11:55: [id number] 00 Balance/End endurance PT/OT: Resolve 2018-052019-04-02 Daniel urance deficit Balance/En d 023 14:06:00 Anguish durance 11:55: [id number] 00 Gait/Locomo gait PT/OT: Resolve 2018-052019-04-02 Daniel tion assistive Gait/Locom d 0-23 14:06:00 Anguish problems device otion 11:55: [id number] present 00 Gait/Locomo gait PT/OT: Resolve 2018-052019-04-02 Daniel tion deficit Gait/Locom d 0-23 14:06:00 Anguish problems otion 11:55: [id number] 00 Nutrition nutritional Nutrition Resolve 2018-052019-04-02 Daniel restriction d 1-11 15:00:00 Anguish s 12:50: [id number] 00 Allergies, Adverse Reactions, Alerts Allergy Allergy Type Status Severity Reaction(s) Onset Inactive Treating Comments Name Date Date Clinician latex Base Active Unknown Reaction 2019-02 Interface Ingredient Unknown -17 tape-late Unknown Active Unknown Reaction 2019-02 Unknown x Unknown -17 Medications Ordered Filled Start Stop Current Ordering Indication Dosage Frequency Signature Comments Components Medication Medication Date Date Medication? Clinician (SIG) Name Name atoredita carlos 2018-05 2019- Yes Hankins Unknown Unknown n 20 mg n 20 mg 0-23 11-15 MD,Rei tablet tablet metoprolol metoprolol 2018-05- Yes Hankins Unknown Unknown succinate succinate 04-04 MD,Eri ER 50 mg ER 50 mg tablet,exte tablet,exte nded nded release 24 release 24 hr hr doxazosin 2 doxazosin 2 2018-05- Yes Hankins Unknown Unknown mg tablet mg tablet 03-21 MD,Eri lisinopril lisinopril 2018-05- Yes Hankins Unknown Unknown 10 mg 10 mg 04-04 MD,Eri tablet tablet aspirin 81 aspirin 81 2018-05- Yes Hankins Unknown Unknown mg chewable mg chewable 04-04 MD,Eri tablet tablet sennosides sennosides 2018-05- Yes Hankins Unknown Unknown 8.6 mg 8.6 mg 04-04 MD,Eri tablet tablet magnesium magnesium 2018-05- Yes Hankins Unknown Unknown hydroxide hydroxide 04-04 MD,Eri oral oral suspension suspension calcitriol calcitriol 2018-05- Yes Hankins Unknown Unknown 1 mcg/mL 1 mcg/mL 04-04 MD,Eri oral oral solution solution pantoprazol pantoprazol 2018-05- Yes Hankins Unknown Unknown e 20 mg e 20 mg 04-04 MD,Eri tablet,esha tablet,esha yed release yed release cephALEXin cephALEXin 2018-05- Yes Hankins Unknown Unknown 500 mg 500 mg 03-14 MD,Eri capsule capsule Spiriva Spiriva 2018-05- Yes Hankins Unknown Unknown Respimat Respimat 04-04 ,Eri 2.5 2.5 mcg/actuati mcg/actuati on solution on solution for for inhalation inhalation albuterol albuterol 2018-05- Yes Hankins Unknown Unknown sulfate HFA sulfate HFA 04-04 ,Eri 90 90 mcg/actuati mcg/actuati on aerosol on aerosol inhaler inhaler traZODone traZODone 2018-05- Yes Hankins Unknown Unknown 50 mg 50 mg 04-04 MD,Eri tablet tablet Acetaminoph Acetaminoph 2018-05- Yes Hankins Unknown Unknown en Pain en Pain 04-04 MD,Eri Relief 500 Relief 500 mg tablet mg tablet amLODIPine amLODIPine 2018-05- Yes Hankins Unknown Unknown 5 mg tablet 5 mg tablet 03-21 MD,Eri FLUoxetine FLUoxetine 2018-05- Yes Hankins Unknown Unknown 10 mg 10 mg 04-04 MD,Eri capsule capsule Calcium 600 Calcium 600 2018-05- Yes Hankins Unknown Unknown + D(3) 600 + D(3) 600 04-04 MD,Eri mg (1,500 mg (1,500 mg)-200 mg)-200 unit tablet unit tablet Multivitami Multivitami 2018-05- Yes Hankins Unknown Unknown n 50 Plus n 50 Plus 04-04 MD,Eri tablet tablet levothyroxi levothyroxi 2018-05- Yes Hankins Unknown Unknown ne 50 mcg ne 50 mcg 04-04 MD,Eri tablet tablet naproxen naproxen 2018-05- Yes Hankins Unknown Unknown sodium 220 sodium 220 04-04 MD,Eri mg tablet mg tablet doxazosin 2 doxazosin 2 2018-05- Yes Hankins Unknown Unknown mg tablet mg tablet 05-21 MD,Eri amLODIPine amLODIPine 2018-05- Yes Hankins Unknown Unknown 5 mg tablet 5 mg tablet 05-21 ,Eri Vital Signs Vital Name Observation Time Observation Value Comments SYSTOLIC mm[Hg] 2019-04-14 18:09:02 118 mm[Hg] mm[Hg] Method: Sit SYSTOLIC mm[Hg] 2019-03-12 18:08:29 120 mm[Hg] mm[Hg] Method: Stand DIASTOLIC mm[Hg] 2019-04-14 18:09:02 64 mm[Hg] mm[Hg] Method: Sit DIASTOLIC mm[Hg] 2019-03-12 18:08:29 60 mm[Hg] mm[Hg] Method: Stand PULSE 2019-04-14 18:09:02 74 /min /min RESP RATE 2019-04-10 18:08:58 18 /min /min TEMP 2019-04-14 18:09:02 97.0 [degF] Procedures This patient has no known procedures. Results This patient has no known results.
--- OUTSIDE RECORDS SUMMARY | 2019-05-19 19:26 | XMS REPORT ---
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 [id number] disease, disease, 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, anemia, [id number] unspecified unspecified Essential Essential Diagnosis Active Dianelys (primary) (primary) 1- Chance hypertensio hypertensio [id number] n n H54.61 H54.61 Diagnosis Active Dianelys 1- Fletcher [id number] Pain frequent Pain Mgmt Resolve 2018-052019-03-28 Rach pain d 0-23 14:24:00 [place] 10:30: [id number] 00 Respiratory dyspnea Respirator Active 2018-05 Rach present y 0- [place] 10:30: [id number] 00 Respiratory oxygen Respirator Active 2018-05 Rach treatments y 0-23 [place] in home 10:30: [id number] 00 Respiratory CPAP Respirator Active 2018-05 Rach treatments y 0-23 [place] in home 10:30: [id number] 00 Endo/Christophe anti-coagul Endo/Christophe Resolve 2018-052019-03-20 Rach ation d 0-23 11:00:00 [place] therapy 10:30: [id number] 00 Integument skin Integument Resolve 2018-052019-03-26 Rach integrity d 0-23 15:07:00 [place] risk 10:30: [id number] 00 Nutrition nutritional Nutrition Resolve 2018-052019-03-28 Rach restriction d 0-23 14:24:00 [place] s 10:30: [id number] 00 Elimination urinary Eliminatio Resolve 2018-052019-03-26 Rach incontinenc n d 0-23 15:07:00 [place] e 10:30: [id number] 00 Elimination constipatio Eliminatio Resolve 2018-052019-03-26 Rach n n d 0-23 15:07:00 [place] 10:30: [id number] 00 Neuro confusion Neuro/Emot Active 2018-05 Rach present ion 0-23 [place] 10:30: [id number] 00 Neuro impaired Neuro/Emot Active 2018-05 Rach decision-ma ion 0-23 [place] abdirahman 10:30: [id number] 00 Activity ADL Activity Active 2018-05 Rach assistance 0-23 [place] required 10:30: [id number] 00 Activity self-care Activity Resolve 2018-052019-03-26 Rach deficit d 0-23 15:07:00 [place] 10:30: [id number] 00 Safety fall risk Safety Active 2018-05 Rach factor 0-23 [place] present 10:30: [id number] 00 Safety can be left Safety Active 2018-05 Rach alone for 0-23 [place] only short 10:30: [id number] periods 00 Safety structural Safety Active 2018-05 Rach barriers 0-23 [place] present 10:30: [id number] 00 Safety risk for Safety Active 2018-05 Rach hospitaliza 0-23 [place] tion 10:30: [id number] 00 Medication oral med Meds Active 2018-05 Rach assistance 0-23 [place] required 10:30: [id number] 00 Musculoskel transfer Musculoske Resolve 2018-052019-03-26 Rach etal assistance letal d 0-23 15:07:00 [place] required 10:30: [id number] 00 Musculoskel requires Musculoske Resolve 2018-052019-03-26 Rach etal human letal d 0-23 15:07:00 [place] assist to 10:30: [id number] leave home 00 Bed mobility/tr PT/OT: Bed Resolve 2018-052019-04-02 Daniel Mobility/Tr ansfer Mobility/T d 0-23 14:06:00 Anguish ansfer device ransfer 11:55: [id number] present 00 Balance/End balance/cosmetic account coordinator PT/OT: Resolve 2018-052019-04-02 Daniel lynn rdination Balance/En d 0-23 14:06:00 Anguish deficit durance 11:55: [id number] 00 Balance/End endurance PT/OT: Resolve 2018-052019-04-02 Daniel urance deficit Balance/En d 0-23 14:06:00 Anguish durance 11:55: [id number] 00 Gait/Locomo gait PT/OT: Resolve 2018-052019-04-02 Daniel tion assistive Gait/Locom d 0-23 14:06:00 Anguish problems device otion 11:55: [id number] present 00 Gait/Locomo gait PT/OT: Resolve 2018-052019-04-02 Daniel tion deficit Gait/Locom d 0-23 14:06:00 Anguish problems otion 11:55: [id number] 00 Nutrition nutritional Nutrition Active 2018-05 Daniel restriction 1-11 Anguish s 12:50: [id number] 00 Allergies, Adverse Reactions, Alerts Allergy Allergy [...] Unknown Unknown 50 mg 50 mg 0-23 MD,Eri tablet tablet Acetaminoph Acetaminoph 2018-05 Yes Hankins Unknown Unknown en Pain en Pain 0-23 MD,Eri Relief 500 Relief 500 mg tablet mg tablet amLODIPine amLODIPine 2018-05 Yes Hnakins Unknown Unknown 5 mg tablet 5 mg [...] 2019-04-02 18:08:50 73 /min /min RESP RATE 2019-03-31 18:08:48 18 /min /min TEMP 2019-04-02 18:08:50 98.2 [degF] Procedures This patient has no known procedures. Results This patient has no known results.
--- OUTSIDE RECORDS SUMMARY | 2019-05-19 19:26 | XMS REPORT ---
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, disease, 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, anemia, [id number] unspecified unspecified Essential Essential Diagnosis Active Dianelys (primary) (primary) 1- Chance hypertensio hypertensio [id number] n n H54.61 H54.61 Diagnosis Active Dianelys 1- Fletcher [id number] Pain frequent Pain Mgmt Resolve 2018-052019-03-28 Rach pain d 0-23 14:24:00 [place] 10:30: [id number] 00 Respiratory dyspnea Respirator Active 2018-05 Rach present y 0- [place] 10:30: [id number] 00 Respiratory oxygen Respirator Active 2018-05 Rach treatments y 0-23 [place] in home 10:30: [id number] 00 Respiratory CPAP Respirator Active 2018-05 Rach treatments y 0-23 Pet[place] in home 10:30: [id number] 00 Endo/Christophe anti-coagul Endo/Christophe Resolve 2018-052019-03-20 Rach ation d 0-23 11:00:00 [place] therapy 10:30: [id number] 00 Integument skin Integument Resolve 2018-052019-03-26 Rach integrity d 0-23 15:07:00 [place] risk 10:30: [id number] 00 Nutrition nutritional Nutrition Resolve 2018-052019-03-28 Rach restriction d 0-23 14:24:00 [place] s 10:30: [id number] 00 Elimination urinary Eliminatio Resolve 2018-052019-03-26 Rach incontinenc n d 0-23 15:07:00 [place] e 10:30: [id number] 00 Elimination constipatio Eliminatio Resolve 2018-052019-03-26 Rach n n d 0-23 15:07:00 [place] 10:30: [id number] 00 Neuro confusion Neuro/Emot Active 2018-05 Rach present ion 0-23 [place] 10:30: [id number] 00 Neuro impaired Neuro/Emot Active 2018-05 Rach decision-ma ion 0-23 [place] abdirahman 10:30: [id number] 00 Activity ADL Activity Active 2018-05 Rach assistance 0-23 [place] required 10:30: [id number] 00 Activity self-care Activity Resolve 2018-052019-03-26 Rach deficit d 0-23 15:07:00 [place] 10:30: [id number] 00 Safety fall risk Safety Active 2018-05 Rach factor 0-23 [place] present 10:30: [id number] 00 Safety can be left Safety Active 2018-05 Rach alone for 0-23 [place] only short 10:30: [id number] periods 00 Safety structural Safety Active 2018-05 Rach barriers 0-23 [place] present 10:30: [id number] 00 Safety risk for Safety Active 2018-05 Rach hospitaliza 0-23 [place] tion 10:30: [id number] 00 Medication oral med Meds Active 2018-05 Rach assistance 0-23 [place] required 10:30: [id number] 00 Musculoskel transfer Musculoske Resolve 2018-052019-03-26 Rach etal assistance letal d 0-23 15:07:00 [place] required 10:30: [id number] 00 Musculoskel requires Musculoske Resolve 2018-052019-03-26 Rach etal human letal d 0-23 15:07:00 [place] assist to 10:30: [id number] leave home 00 Bed mobility/tr PT/OT: Bed Active 2018-05 Daniel Mobility/Tr ansfer Mobility/T 0-23 Anguish ansfer device ransfer 11:55: [id number] present 00 Balance/End balance/records coordinator PT/OT: Active 2018-05 Daniel urance rdination Balance/En 0-23 Anguish deficit durance 11:55: [id number] 00 Balance/End endurance PT/OT: Active 2018-05 Daniel urance deficit Balance/En 0-23 Anguish durance 11:55: [id number] 00 Gait/Locomo gait PT/OT: Active 2018-05 Daniel tion assistive Gait/Locom 0-23 Anguish problems device otion 11:55: [id number] present 00 Gait/Locomo gait PT/OT: Active 2018-05 Daniel tion deficit Gait/Locom 0-23 Anguish problems otion 11:55: [id number] 00 Nutrition nutritional Nutrition Active 2018-05 Daniel restriction 1-11 Anguish s 12:50: [id number] 00 Allergies, Adverse Reactions, Alerts Allergy Allergy Type Status Severity Reaction(s) Onset Inactive Treating Comments Name Date Date Clinician latex Base Active Unknown Reaction 2019-02 Interface Ingredient Unknown -17 tape-late Unknown Active Unknown Reaction 2019-02 Unknown x Unknown -17 Medications Ordered Filled Start Stop Current Ordering Indication Dosage Frequency Signature Comments Components Medication Medication Date Date Medication? Clinician (SIG) Name Name breanna oraliademariotagem 2018-05 Yes Hankins Unknown Unknown n 20 mg n 20 mg 0-23 MD,Eri tablet tablet metoprolol metoprolol 2018-05 Yes Hankins Unknown Unknown succinate succinate 0-23 MD,Eri ER 50 mg ER 50 mg tablet,exte tablet,exte nded nded release 24 release 24 hr hr doxazosin 2 doxazosin 2 2018-05 Hankins Unknown Unknown mg tablet mg tablet 0-23 - MD,Eri lisinopril lisinopril 2018-05 Yes Hankins Unknown [...] Hankins Unknown Unknown 1 mcg/mL 1 mcg/mL 0- MD,Eri oral oral solution solution pantoprazol pantoprazol 2018-05 Yes Hankins Unknown Unknown e 20 mg e 20 mg 0- MD,Eri tablet,esha tablet,esha yed release yed release cephALEXin cephALEXin 2018-05- Yes Hankins Unknown Unknown 500 mg 500 mg 0-12 03- MD,Eri capsule capsule Spiriva Spiriva 2018-05 Yes Hankins Unknown Unknown Respimat Respimat 0- MD,Eri 2.5 2.5 mcg/actuati mcg/actuati on solution on solution for for inhalation inhalation albuterol albuterol 2018-05 Yes Hankins Unknown Unknown sulfate HFA sulfate HFA 0- MD,Eri 90 90 mcg/actuati mcg/actuati on aerosol on aerosol inhaler inhaler traZODone traZODone 2018-05 Yes Hankins Unknown Unknown 50 mg 50 mg 0- MD,Eri tablet tablet Acetaminoph Acetaminoph 2018-05 Yes Hankins Unknown Unknown en Pain en Pain 0- MD,Eri Relief 500 Relief 500 mg tablet mg tablet amLODIPine amLODIPine 2018-05 Yes Hankins Unknown Unknown 5 mg tablet 5 mg tablet 0-12 04- MD,Eri FLUoxetine FLUoxetine 2018-05 Yes Hankins Unknown Unknown 10 mg 10 mg 0- MD,Eri capsule capsule Calcium 600 Calcium 600 2018-05 Yes Hankins Unknown Unknown + D(3) 600 + D(3) 600 0- MD,Eri mg (1,500 mg (1,500 mg)-200 mg)-200 unit tablet unit tablet Multivitami Multivitami 2018-05 Yes Hankins Unknown Unknown n 50 Plus n 50 Plus 0- MD,Eri tablet tablet levothyroxi levothyroxi 2018-05 Yes Hankins Unknown Unknown ne 50 mcg ne 50 mcg 0- MD,Eri tablet tablet naproxen naproxen 2018-05 Yes Hankins Unknown Unknown sodium 220 sodium 220 0- MD,Eri mg tablet mg tablet doxazosin 2 doxazosin 2 2018-05 Yes Hankins Unknown Unknown mg tablet mg tablet 05-21 MD,Eri amLODIPine amLODIPine 2018-05 Yes Hankins Unknown Unknown 5 mg tablet 5 mg tablet 05-21 MD,Eri Vital Signs Vital Name Observation Time Observation Value Comments SYSTOLIC mm[Hg] 2019-03-31 18:08:48 130 mm[Hg] mm[Hg] Method: Sit SYSTOLIC mm[Hg] 2019-03-12 18:08:29 120 mm[Hg] mm[Hg] Method: Stand DIASTOLIC mm[Hg] 2019-03-31 18:08:48 64 mm[Hg] mm[Hg] Method: Sit DIASTOLIC mm[Hg] 2019-03-12 18:08:29 60 mm[Hg] mm[Hg] Method: Stand PULSE 2019-03-31 18:08:48 68 /min /min RESP RATE 2019-03-31 18:08:48 18 /min /min TEMP 2019-03-31 18:08:48 97.8 [degF] Procedures This patient has no known procedures. Results This patient has no known results.
--- OUTSIDE RECORDS SUMMARY | 2019-05-19 19:26 | XMS REPORT ---
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 [id number] disease, disease, 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, anemia, [id number] unspecified unspecified Essential Essential Diagnosis Active Dianelys (primary) (primary) 1- Chance hypertensio hypertensio [id number] n n H54.61 H54.61 Diagnosis Active Dianelys 1- Fletcher [id number] Pain frequent Pain Mgmt Resolve 2018-052019-03-28 Rach pain d 0-23 14:24:00 [place] 10:30: [id number] 00 Respiratory dyspnea Respirator Active 2018-05 Rach present y 0- [place] 10:30: [id number] 00 Respiratory oxygen Respirator Active 2018-05 Rach treatments y 0-23 [place] in home 10:30: [id number] 00 Respiratory CPAP Respirator Active 2018-05 Rach treatments y 0-23 [place] in home 10:30: [id number] 00 Endo/Christophe anti-coagul Endo/Christophe Resolve 2018-052019-03-20 Rach ation d 0-23 11:00:00 [place] therapy 10:30: [id number] 00 Integument skin Integument Resolve 2018-052019-03-26 Rach integrity d 0-23 15:07:00 [place] risk 10:30: [id number] 00 Nutrition nutritional Nutrition Resolve 2018-052019-03-28 Rach restriction d 0-23 14:24:00 [place] s 10:30: [id number] 00 Elimination urinary Eliminatio Resolve 2018-052019-03-26 Rach incontinenc n d 0-23 15:07:00 [place] e 10:30: [id number] 00 Elimination constipatio Eliminatio Resolve 2018-052019-03-26 Rach n n d 0-23 15:07:00 [place] 10:30: [id number] 00 Neuro confusion Neuro/Emot Active 2018-05 Rach present ion 0-23 [place] 10:30: [id number] 00 Neuro impaired Neuro/Emot Active 2018-05 Rach decision-ma ion 0-23 [place] abdirahman 10:30: [id number] 00 Activity ADL Activity Active 2018-05 Rach assistance 0-23 [place] required 10:30: [id number] 00 Activity self-care Activity Resolve 2018-052019-03-26 Rach deficit d 0-23 15:07:00 [place] 10:30: [id number] 00 Safety fall risk Safety Active 2018-05 Rach factor 0-23 [place] present 10:30: [id number] 00 Safety can be left Safety Active 2018-05 Rach alone for 0-23 [place]us only short 10:30: [id number] periods 00 Safety structural Safety Active 2018-05 Rach barriers 0-23 [place] present 10:30: [id number] 00 Safety risk for Safety Active 2018-05 Rach hospitaliza 0-23 Remus tion 10:30: [id number] 00 Medication oral med Meds Active 2018-05 Rach assistance 0-23 [place] required 10:30: [id number] 00 Musculoskel transfer Musculoske Resolve 2018-052019-03-26 Rach etal assistance letal d 0-23 15:07:00 [place] required 10:30: [id number] 00 Musculoskel requires Musculoske Resolve 2018-052019-03-26 Rach etal human letal d 0-23 15:07:00 [place] assist to 10:30: [id number] leave home 00 Bed mobility/tr PT/OT: Bed Resolve 2018-052019-04-02 Daniel Mobility/Tr ansfer Mobility/T d 0-23 14:06:00 Anguish ansfer device ransfer 11:55: [id number] present 00 Balance/End balance/licensing coordinator PT/OT: Resolve 2018-052019-04-02 Daniel lynn rdination Balance/En d 0-23 14:06:00 Anguish deficit durance 11:55: [id number] 00 Balance/End endurance PT/OT: Resolve 2018-052019-04-02 Daniel urance deficit Balance/En d 0-23 14:06:00 Anguish durance 11:55: [id number] 00 Gait/Locomo gait PT/OT: Resolve 2018-052019-04-02 Daniel tion assistive Gait/Locom d 0-23 14:06:00 Anguish problems device otion 11:55: [id number] present 00 Gait/Locomo gait PT/OT: Resolve 2018-052019-04-02 Daniel tion deficit Gait/Locom d 0-23 14:06:00 Anguish problems otion 11:55: [id number] 00 Nutrition nutritional Nutrition Active 2018-05 Daniel restriction 1-11 Anguish s 12:50: [id number] 00 Allergies, Adverse Reactions, Alerts Allergy Allergy [...] MD,Eri tablet tablet magnesium magnesium 2018-05 Yes Hanknis Unknown Unknown hydroxide hydroxide 0-23 MD,Eri oral [...] Yes Hankins Unknown Unknown Respimat Respimat 0-23 MD,Eir 2.5 2.5 mcg/actuati mcg/actuati on solution on [...]
--- OUTSIDE RECORDS SUMMARY | 2019-05-19 19:26 | XMS REPORT ---
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 [id number] disease, disease, 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, anemia, [id number] unspecified unspecified Essential Essential Diagnosis Active Dianelys (primary) (primary) 1- Chance hypertensio hypertensio [id number] n n H54.61 H54.61 Diagnosis Active Dianelys 1- Fletcher [id number] Pain frequent Pain Mgmt Resolve 2018-052019-03-28 Rach pain d 0-23 14:24:00 [place] 10:30: [id number] 00 Respiratory dyspnea Respirator Active 2018-05 Rach present y 0-23 [place] 10:30: [id number] 00 Respiratory oxygen Respirator Active 2018-05 Rach treatments y 0-23 [place] in home 10:30: [id number] 00 Respiratory CPAP Respirator Active 2018-05 Rach treatments y 0-23 Petra in home 10:30: [id number] 00 Endo/Christophe anti-coagul Endo/Christophe Resolve 2018-052019-03-20 Rach ation d 0-23 11:00:00 [place] therapy 10:30: [id number] 00 Integument skin Integument Resolve 2018-052019-03-26 Rach integrity d 0-23 15:07:00 [place] risk 10:30: [id number] 00 Nutrition nutritional Nutrition Resolve 2018-052019-03-28 Rach restriction d 0-23 14:24:00 [place] s 10:30: [id number] 00 Elimination urinary Eliminatio Resolve 2018-052019-03-26 Rach incontinenc n d 0-23 15:07:00 [place] e 10:30: [id number] 00 Elimination constipatio Eliminatio Resolve 2018-052019-03-26 Rach n n d 0-23 15:07:00 [place] 10:30: [id number] 00 Neuro confusion Neuro/Emot Active 2018-05 Rach present ion 0-23 [place] 10:30: [id number] 00 Neuro impaired Neuro/Emot Active 2018-05 Rach decision-ma ion 0-23 [place] abdirahman 10:30: [id number] 00 Activity ADL Activity Active 2018-05 Rach assistance 0-23 [place] required 10:30: [id number] 00 Activity self-care Activity Resolve 2018-052019-03-26 Rach deficit d 0-23 15:07:00 [place] 10:30: [id number] 00 Safety fall risk Safety Active 2018-05 Rach factor 0-23 [place] present 10:30: [id number] 00 Safety can be left Safety Active 2018-05 Rach alone for 0-23 [place] only short 10:30: [id number] periods 00 Safety structural Safety Active 2018-05 Rach barriers 0-23 [place] present 10:30: [id number] 00 Safety risk for Safety Active 2018-05 Rach hospitaliza 0-23 [place] tion 10:30: [id number] 00 Medication oral med Meds Active 2018-05 Rach assistance 0-23 [place] required 10:30: [id number] 00 Musculoskel transfer Musculoske Resolve 2018-052019-03-26 Rach etal assistance letal d 0-23 15:07:00 Petra required 10:30: [id number] 00 Musculoskel requires Musculoske Resolve 2018-052019-03-26 Rach etal human letal d 0-23 15:07:00 [place] assist to 10:30: [id number] leave home 00 Bed mobility/tr PT/OT: Bed Resolve 2018-052019-04-02 Daniel Mobility/Tr ansfer Mobility/T d 0-23 14:06:00 Anguish ansfer device ransfer 11:55: [id number] present 00 Balance/End balance/network development coordinator PT/OT: Resolve 2018-052019-04-02 Daniel lynn rdination Balance/En d 0-23 14:06:00 Anguish deficit durance 11:55: [id number] 00 Balance/End endurance PT/OT: Resolve 2018-052019-04-02 Daniel urance deficit Balance/En d 0-23 14:06:00 Anguish durance 11:55: [id number] 00 Gait/Locomo gait PT/OT: Resolve 2018-052019-04-02 Daniel tion assistive Gait/Locom d 0-23 14:06:00 Anguish problems device otion 11:55: [id number] present 00 Gait/Locomo gait PT/OT: Resolve 2018-052019-04-02 Daniel tion deficit Gait/Locom d 0-23 14:06:00 Anguish problems otion 11:55: [id number] 00 Nutrition nutritional Nutrition Active 2018-05 Daniel restriction 1-11 Anguish s 12:50: [id number] 00 Allergies, Adverse Reactions, Alerts Allergy Allergy [...]
--- OUTSIDE RECORDS SUMMARY | 2019-05-19 19:26 | XMS REPORT ---
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 [id number] disease, disease, 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, anemia, [id number] unspecified unspecified Essential Essential Diagnosis Active Dianelys (primary) (primary) 1- Chance hypertensio hypertensio [id number] n n H54.61 H54.61 Diagnosis Active Dianelys 1- Fletcher [id number] Pain frequent Pain Mgmt Resolve 2018-052019-03-28 Rach pain d 0-23 14:24:00 [place] 10:30: [id number] 00 Respiratory dyspnea Respirator Active 2018-05 Rach present y 0- [place] 10:30: [id number] 00 Respiratory oxygen Respirator Active 2018-05 Rach treatments y 0-23 [place] in home 10:30: [id number] 00 Respiratory CPAP Respirator Active 2018-05 Rach treatments y 0-23 [place] in home 10:30: [id number] 00 Endo/Christophe anti-coagul Endo/Christophe Resolve 2018-052019-03-20 Rach ation d 0-23 11:00:00 [place] therapy 10:30: [id number] 00 Integument skin Integument Resolve 2018-052019-03-26 Rach integrity d 0-23 15:07:00 [place] risk 10:30: [id number] 00 Nutrition nutritional Nutrition Resolve 2018-052019-03-28 Rach restriction d 0-23 14:24:00 [place] s 10:30: [id number] 00 Elimination urinary Eliminatio Resolve 2018-052019-03-26 Rach incontinenc n d 0-23 15:07:00 [place] e 10:30: [id number] 00 Elimination constipatio Eliminatio Resolve 2018-052019-03-26 Rach n n d 0-23 15:07:00 [place] 10:30: [id number] 00 Neuro confusion Neuro/Emot Active 2018-05 Rach present ion 0-23 [place] 10:30: [id number] 00 Neuro impaired Neuro/Emot Active 2018-05 Rach decision-ma ion 0-23 [place] abdirahman 10:30: [id number] 00 Activity ADL Activity Active 2018-05 Rach assistance 0-23 [place] required 10:30: [id number] 00 Activity self-care Activity Resolve 2018-052019-03-26 Rach deficit d 0-23 15:07:00 [place] 10:30: [id number] 00 Safety fall risk Safety Active 2018-05 Rach factor 0-23 [place] present 10:30: [id number] 00 Safety can be left Safety Active 2018-05 Rach alone for 0-23 [place] only short 10:30: [id number] periods 00 Safety structural Safety Active 2018-05 Rach barriers 0-23 [place] present 10:30: [id number] 00 Safety risk for Safety Active 2018-05 Rach hospitaliza 0-23 [place] tion 10:30: [id number] 00 Medication oral med Meds Active 2018-05 Rach assistance 0-23 [place] required 10:30: [id number] 00 Musculoskel transfer Musculoske Resolve 2018-052019-03-26 Rach etal assistance letal d 0-23 15:07:00 [place] required 10:30: [id number] 00 Musculoskel requires Musculoske Resolve 2018-052019-03-26 Rach etal human letal d 0-23 15:07:00 [place] assist to 10:30: [id number] leave home 00 Bed mobility/tr PT/OT: Bed Resolve 2018-052019-04-02 Daniel Mobility/Tr ansfer Mobility/T d 0-23 14:06:00 Anguish ansfer device ransfer 11:55: [id number] present 00 Balance/End balance/automotive parts coordinator PT/OT: Resolve 2018-052019-04-02 Daniel lynn rdination Balance/En d 0-23 14:06:00 Anguish deficit durance 11:55: [id number] 00 Balance/End endurance PT/OT: Resolve 2018-052019-04-02 Daniel urance deficit Balance/En d 0-23 14:06:00 Anguish durance 11:55: [id number] 00 Gait/Locomo gait PT/OT: Resolve 2018-052019-04-02 Daniel tion assistive Gait/Locom d 0-23 14:06:00 Anguish problems device otion 11:55: [id number] present 00 Gait/Locomo gait PT/OT: Resolve 2018-052019-04-02 Daniel tion deficit Gait/Locom d 0-23 14:06:00 Anguish problems otion 11:55: [id number] 00 Nutrition nutritional Nutrition Active 2018-05 Daniel restriction 1-11 Anguish s 12:50: [id number] 00 Allergies, Adverse Reactions, Alerts Allergy Allergy [...] Unknown Unknown 8.6 mg 8.6 mg 0-23 MD,Eir tablet tablet magnesium magnesium 2018-05 Yes Hankins [...]
--- OUTSIDE RECORDS SUMMARY | 2019-05-19 19:26 | XMS REPORT ---
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 [id number] disease, disease, 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, anemia, [id number] unspecified unspecified Essential Essential Diagnosis Active Dianelys (primary) (primary) 1- Chance hypertensio hypertensio [id number] n n H54.61 H54.61 Diagnosis Active Dianelys 1- Fletcher [id number] Pain frequent Pain Mgmt Resolve 2018-052019-03-28 Rach pain d 0-23 14:24:00 Colliers 10:30: [id number] Respiratory dyspnea Respirator Active 2018-05 Rach present y 0- Colliers 10:30: [id number] 00 Respiratory oxygen Respirator Active 2018-05 Rach treatments y 0-23 Colliers in home 10:30: [id number] 00 Respiratory CPAP Respirator Active 2018-05 Rach treatments y 0-23 Petra in home 10:30: [id number] 00 Endo/Christophe anti-coagul Endo/Christophe Resolve 2018-052019-03-20 Rach ation d 0-23 11:00:00 Colliers therapy 10:30: [id number] 00 Integument skin Integument Resolve 2018-052019-03-26 Rach integrity d 0-23 15:07:00 Colliers risk 10:30: [id number] 00 Nutrition nutritional Nutrition Resolve 2018-052019-03-28 Rach restriction d 0-23 14:24:00 Colliers s 10:30: [id number] 00 Elimination urinary Eliminatio Resolve 2018-052019-03-26 Rach incontinenc n d 0-23 15:07:00 Colliers e 10:30: [id number] 00 Elimination constipatio Eliminatio Resolve 2018-052019-03-26 Rach n n d 0-23 15:07:00 Colliers 10:30: [id number] 00 Neuro confusion Neuro/Emot Active 2018-05 Rach present ion 0-23 Colliers 10:30: [id number] 00 Neuro impaired Neuro/Emot Active 2018-05 Rach decision-ma ion 0-23 Colliers abdirahman 10:30: [id number] 00 Activity ADL Activity Active 2018-05 Rach assistance 0-23 Colliers required 10:30: [id number] 00 Activity self-care Activity Resolve 2018-052019-03-26 Rach deficit d 0-23 15:07:00 Colliers 10:30: [id number] 00 Safety fall risk Safety Active 2018-05 Rach factor 0-23 Colliers present 10:30: [id number] 00 Safety can be left Safety Active 2018-05 Rach alone for 0-23 Colliers only short 10:30: [id number] 00 Safety structural Safety Active 2018-05 Rach barriers 0-23 Colliers present 10:30: [id number] 00 Safety risk for Safety Active 2018-05 Rach hospitaliza 0-23 Colliers tion 10:30: [id number] 00 Medication oral med Meds Active 2018-05 Rach assistance 0-23 Colliers required 10:30: [id number] 00 Musculoskel transfer Musculoske Resolve 2018-052019-03-26 Rach etal assistance letal d 0-23 15:07:00 Petra required 10:30: [id number] 00 Musculoskel requires Musculoske Resolve 2018-052019-03-26 Rach etal human letal d 0-23 15:07:00 Colliers assist to 10:30: [id number] leave home 00 Bed mobility/tr PT/OT: Bed Resolve 2018-052019-04-02 Daniel Mobility/Tr ansfer Mobility/T d 0-23 14:06:00 Anguish ansfer device ransfer 11:55: [id number] present 00 Balance/End balance/rectangular tank cooper PT/OT: Resolve 2018-052019-04-02 Daniel lynn rdination Balance/En d 0-23 14:06:00 Anguish deficit durance 11:55: [id number] 00 Balance/End endurance PT/OT: Resolve 2018-052019-04-02 Daniel urance deficit Balance/En d 0-23 14:06:00 Anguish durance 11:55: [id number] 00 Gait/Locomo gait PT/OT: Resolve 2018-052019-04-02 Daniel tion assistive Gait/Locom d 0-23 14:06:00 Anguish problems device otion 11:55: [id number] present 00 Gait/Locomo gait PT/OT: Resolve 2018-052019-04-02 Daniel tion deficit Gait/Locom d 0-23 14:06:00 Anguish problems otion 11:55: [id number] 00 Nutrition nutritional Nutrition Active 2018-05 Daniel restriction 1-11 Anguish s 12:50: [id number] 00 Allergies, Adverse Reactions, Alerts Allergy Allergy [...]
--- OUTSIDE RECORDS SUMMARY | 2019-05-19 19:26 | XMS REPORT ---
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 1- Chance pulmonary pulmonary [id number] disease, disease, 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, anemia, [id number] unspecified unspecified Essential Essential Diagnosis Active Dianelys (primary) (primary) 1- Chance hypertensio hypertensio [id number] n n H54.61 H54.61 Diagnosis Active Dianelys 1- Fletcher [id number] Pain frequent Pain Mgmt Resolve 2018-052019-03-28 Rach pain d 0-23 14:24:00 Lewis 10:30: [id number] 00 Respiratory dyspnea Respirator Active 2018-05 Rach present y 0- Lewis 10:30: [id number] 00 Respiratory oxygen Respirator Active 2018-05 Rach treatments y 0-23 Lewis in home 10:30: [id number] 00 Respiratory CPAP Respirator Active 2018-05 Rach treatments y 0-23 Petra in home 10:30: [id number] 00 Endo/Christophe anti-coagul Endo/Christophe Resolve 2018-052019-03-20 Rach ation d 0-23 11:00:00 Lewis therapy 10:30: [id number] 00 Integument skin Integument Resolve 2018-052019-03-26 Rach integrity d 0-23 15:07:00 Lewis risk 10:30: [id number] 00 Nutrition nutritional Nutrition Resolve 2018-052019-03-28 Rach restriction d 0-23 14:24:00 Lewis s 10:30: [id number] 00 Elimination urinary Eliminatio Resolve 2018-052019-03-26 Rach incontinenc n d 0-23 15:07:00 Lewis e 10:30: [id number] 00 Elimination constipatio Eliminatio Resolve 2018-052019-03-26 Rach n n d 0-23 15:07:00 Lewis 10:30: [id number] 00 Neuro confusion Neuro/Emot Active 2018-05 Rach present ion 0-23 Lewis 10:30: [id number] 00 Neuro impaired Neuro/Emot Active 2018-05 Rach decision-ma ion 0-23 Lewis abdirahman 10:30: [id number] 00 Activity ADL Activity Active 2018-05 Rach assistance 0-23 Lewis required 10:30: [id number] 00 Activity self-care Activity Resolve 2018-052019-03-26 Rach deficit d 0-23 15:07:00 Lewis 10:30: [id number] 00 Safety fall risk Safety Active 2018-05 Rach factor 0-23 Lewis present 10:30: [id number] 00 Safety can be left Safety Active 2018-05 Rach alone for 0-23 Lewis only short 10:30: [id number] periods 00 Safety structural Safety Active 2018-05 Rach barriers 0-23 Lewis present 10:30: [id number] 00 Safety risk for Safety Active 2018-05 Rach hospitaliza 0-23 Lewis tion 10:30: [id number] 00 Medication oral med Meds Active 2018-05 Rach assistance 0-23 Lewis required 10:30: [id number] 00 Musculoskel transfer Musculoske Resolve 2018-052019-03-26 Rach etal assistance letal d 0-23 15:07:00 Lewis required 10:30: [id number] 00 Musculoskel requires Musculoske Resolve 2018-052019-03-26 Rach etal human letal d 0-23 15:07:00 Lewis assist to 10:30: [id number] leave home 00 Bed mobility/tr PT/OT: Bed Active 2018-05 Daniel Mobility/Tr ansfer Mobility/T 0-23 Anguish ansfer device ransfer 11:55: [id number] present 00 Balance/End balance/bariatric program coordinator PT/OT: Active 2018-05 Daniel urance rdination Balance/En 0-23 Anguish deficit durance 11:55: [id number] 00 Balance/End endurance PT/OT: Active 2018-05 Daniel urance deficit Balance/En 0-23 Anguish durance 11:55: [id number] 00 Gait/Locomo gait PT/OT: Active 2018-05 Daniel tion assistive Gait/Locom 0-23 Anguish problems device otion 11:55: [id number] present 00 Gait/Locomo gait PT/OT: Active 2018-05 Daniel tion deficit Gait/Locom 0-23 Anguish problems otion 11:55: [id number] 00 Nutrition nutritional Nutrition Active 2018-05 Daniel restriction 1-11 Anguish s 12:50: [id number] 00 Allergies, Adverse Reactions, Alerts Allergy Allergy [...]
--- NOTE | 2019-05-19 20:09 | ED ---
Abdominal Pain/Female - HPI Summary HPI Summary: 84 y/o female presented to [facility] with CC of sharp abdominal pain on her right side that has been present all day, 05/19/19. Patient also notes nausea, right side back pain, and diarrhea. No cough or GERD symptoms are present. Patient ate breakfast but laid in bed all day and became lightheaded every time she was on her feet as well as experiencing weakness described as "wobbly knees." She did not sleep well last night due to disturbance by her cat. She was seen recently by Dr. Hankins who suspected dehydration. She notes that her hands and feet have felt "different" for months, characterized as "pins pushing up" and "covered with cornmeal" that she suspects is due to poor circulation. She has chronic balance problems due to her vision as well as a Hx of bilat lung resection years ago. She also has Hx of PNA months ago and has been on O2 as needed for years, mostly for walking. She has no Hx of blood clots. - History of Current Complaint Chief Complaint: Kenneth Stated Complaint: ABD PAIN PER DAUGHTER Time Seen by Provider: 05/19/19 19:59 Hx Obtained From: Patient, Family/Floor Representative Onset/Duration: Lasting Hours Severity Currently: None Pain Intensity: 0 Pain Scale Used: 0-10 Numeric Location: Other - right Character: Sharp Aggravating Factor(s): Nothing Associated Signs and Symptoms: Positive: Back Pain - right, Nausea, Diarrhea, Other: - no GERD symptoms. Negative: Cough Allergies/Adverse Reactions: Allergies Allergy/AdvReac Type Severity Reaction Status Date / Time latex Allergy Rash Verified 05/19/19 19:16 tape-latex Allergy Mild Rash Uncoded 05/19/19 19:16 Home Medications: Home Medications Cholecalciferol (Vitamin D3) [Vitamin D3] 1,000 unit PO DAILY 05/19/19 [History Confirmed 05/19/19] Fluticasone NASAL SPRAY 50MCG* [Flonase NASAL SPRAY 50MCG*] 1 spray BOTH NARES BID 05/19/19 [History Confirmed 05/19/19] Iron-Vitamin C 65/125(Nf) [Vitron-C (NF)] 1 tab PO EVERY OTHER DAY 05/19/19 [ History Confirmed 05/19/19] Tiotropium [place] [Spiriva Respimat] 8 gm INH DAILY 05/19/19 [History Confirmed 05/19/19] amLODIPine TAB* [Norvasc 5 mg TAB*] 5 mg PO DAILY 05/19/19 [History Confirmed ] PMH/Surg Hx/FS Hx/Imm Hx Endocrine/Hematology History: Reports: Hx Anticoagulant Therapy - asa 81 mg, Hx Thyroid Disease Denies: Hx Diabetes, Hx Anemia Cardiovascular History: Reports: Hx Congestive Heart Failure, Hx Hypercholesterolemia, Hx Hypertension Denies: Hx Pacemaker/ICD Respiratory History: Reports: Hx Chronic Obstructive Pulmonary Disease (COPD), Hx Lung Cancer, Hx Pneumonia, Other Respiratory Problems/Disorders - LUNG CA, LOWER LOBES OF BOTH LUNGS REMOVED Denies: Hx Asthma GI History: Reports: Hx Gastroesophageal Reflux Disease, Hx Ulcer Denies: Hx Gastrointestinal Bleed, Hx Hiatal Hernia, Hx Jaundice History: Denies: Hx Renal Disease Musculoskeletal History: Reports: Hx Arthritis Denies: Hx Scoliosis Sensory History: Reports: 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, Hx Contacts or Glasses, Hx Eye Injury, Hx Legally Blind - RIGHT EYE, Hx Vision Problem - surgery caued retinal detachment Denies: Hx Hearing Aid Opthamlomology History: Reports: 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 BILAT TOTAL KNEE REPLACEMENTS. TONSILS. REPAIR PROLAPSED BLADDER. BILATERAL CATARACTS. TORN RETINA IN BILATERAL EYES REPAIR-NO OP REPORT WILL CLEAR WITH ORBIT DX PER DR MOLINA - Immunization History Date of Tetanus Vaccine: unknown Infectious Disease History: No Infectious Disease History: Denies: Hx Clostridium Difficile, Hx Hepatitis, Hx Human Immunodeficiency Virus (HIV), Hx of Known/Suspected MRSA, Hx Shingles, Hx Tuberculosis, Hx Known/ Suspected VRE, Hx Known/Suspected VRSA, History Other Infectious Disease, Traveled Outside the [place] in Last 30 Days - Family History Known Family History: Positive: Cardiac Disease, Hypertension, Other - Mother - stroke Family History: Mother - stroke - Social History Alcohol Use: None Alcohol Amount: smells of alcohol Hx Substance Use: No Substance Use Type: Reports: None Hx Tobacco Use: Yes Smoking Status (MU): Former Smoker Type: Cigarettes Review of Systems Negative: Cough Positive: Abdominal Pain, Diarrhea, Nausea Positive: Myalgia - back Positive: Weakness - "wobbly" All Other Systems Reviewed And Are Negative: Yes Physical Exam - Summary Physical Exam Summary: Constitutional: Well-developed, Well-nourished, Alert. (-) Distressed, Elderly Skin: Warm, Dry HENT: Normocephalic; Atraumatic, nasal cannula in place Eyes: Conjunctiva normal Neck: Musculoskeletal ROM normal neck. (-) JVD, (-) Stridor, (-) Nuchal rigidity Cardio: Rhythm regular, rate normal, Heart sounds normal; Intact distal pulses; Radial pulses are 2+ and symmetric. (-) Murmur Pulmonary/Chest wall: Effort normal. (-) Respiratory distress, (-) Wheezes, (-) Rales Abd: Soft, (-) tenderness, (-) Distension, (-) Guarding, (-) Rebound Musculoskeletal: (-) Edema Lymph: (-) Cervical adenopathy Neuro: Alert, Oriented x3 Psych: Mood and affect Normal Triage Information Reviewed: Yes Vital Signs On Initial Exam: Initial Vitals Temp Pulse Resp BP Pulse Ox 98.7 F 89 18 186/108 97 05/19/19 19:14 05/19/19 19:14 05/19/19 19:14 05/19/19 19:14 05/19/19 19:14 Vital Signs Reviewed: Yes Procedures - Sedation Patient Received Moderate/Deep Sedation with Procedure: No Diagnostics - Vital Signs Vital Signs Temp Pulse Resp BP Pulse Ox 05/19/19 19:14 98.7 F 89 18 186/108 97 - Laboratory Result Diagrams: 05/19/19 20:13 05/19/19 20:13 Lab Statement: Any lab studies that have been ordered have been reviewed, and results considered in the medical decision making process. - Radiology CXR Radiology Interpretation Completed By: ED Physician Summary of Radiographic Findings: Bilateral nodular opacities, similar to prior. ED physician has reviewed and interpreted this imaging study. Pending official read. - EKG 2004 Cardiac Rate: NL - 76bpm EKG Rhythm: Sinus Rhythm EKG Comparison: No Significant Change - compared to 03/06/19 Summary of EKG Findings: An EKG at 20:05 reveals normal sinus rhythm, rate 76, nml axis, nml intervals, LVH. No STEMI. No acute changes. The ED physician has reviewed and interpreted this EKG. Re-Evaluation - Re-Evaluation First Eval Re-Evaluation Time: 23:43 Change: Unchanged - patient still sleeping Second Eval Re-Evaluation Time: 12:15 Change: Improved - feeling better, urinalysis with 3+ leukesterase, we'll treat with Keflex. Abdominal Pain Fem Course/Dx - Course Course Of Treatment: 84 y/o F w hx lung cancer, hypothyroidism p/w fatigue, abdominal pain. -VS notable for HTN. Exam unremarkable. Check labs including CBC, TSH, trop. EKG unchanged. CXR. -Labs notable for low Mg likely in setting of recent diarrheal illnesss. -Based on my eval today, no evidence of end organ damage from hypertension. -chemistry wnl,no DEMIAN noted, no chest pain/sob , no THORPE, neuro exam non-focal. Recommendations for BP management: -The pt likely suffers from essential hypertension. -In the absence of a hypertensive emergency, which the pt does not have, there is no indication to aggressively treat elevated blood pressure, even when it approaches the systolic ~180 range. -The patient needs jail management of their blood pressure. -acutely, the pt may still have an elevated pressure, but over time the medication will take effect. - Diagnoses Provider Diagnoses: Hypomagnesemia, UTI (urinary tract infection) Discharge ED - Sign-Out/Discharge Documenting (check all that apply): Patient Departure - d/c - Discharge Plan Condition: Stable Disposition: HOME Prescriptions: Cephalexin CAP* [Keflex CAP*] 500 mg PO BID 5 Days #10 cap Patient Education Materials: Hypomagnesemia (ED), Urinary Tract Infection in Older Adults (ED) Referrals: Eri Hankins MD [Primary Care Provider] - Additional Instructions: You were seen in the emergency department for low magnesium. We repleted this as this is likely the cause of your fatigue. Your urine showed an infection, take keflex twice a day Please follow up with your primary care doctor in next 2-3 days and return to emergency department for continued fatigue, confusion, chest pain, shortness of breath, worsening or concerning symptoms. It was a pleasure taking care of you today. - Billing Disposition and Condition Condition: STABLE Disposition: Home - Attestation Statements Document Initiated by Tati: Yes Documenting Yosefibe: Arlette Rivera Provider For Whom Tati is Documenting (Include Credential): Dr. Karishma Olivarez MD Scribe Attestation: I, Arlette Rivera, scribed for Dr. Karishma Olivarez MD on 05/20/19 at 0056. Scribe Documentation Reviewed: Yes Provider Attestation: The documentation as recorded by the Arlette cueva accurately reflects the service I personally performed and the decisions made by me, Dr. Karishma Olivarez MD Status of Scribe Document: Viewed
[2019-05-19 20:29] LABS: ABS Eosinophils 0.2 10^3/ul (0-0.6); ABS Lymphocytes 1.1 10^3/ul (1.0-4.8); ABS Monocytes 0.4 10^3/ul (0-0.8); ABS Neutrophils 3.6 10^3/ul (1.5-7.7); Eosinophil % 3.7 %; Hematocrit 37 % (35-47); Hemoglobin 11.4 g/dL (12.0-16.0); Lymphocyte % 20.9 %; Mean Corpuscular HGB Conc 31 g/dL (31-36); Mean Corpuscular Hemoglobin 27 pg (27-31); Mean Corpuscular Volume 88 fL (80-97); Mean Platelet Volume 7.4 fL (7.4-10.4); Platelet Count 212 10^3/uL (150-450); Red Blood Count 4.17 10^6 /uL (3.70-4.87); Red Cell Distribution Width 15 % (10-15); White Blood Count 5.4 10^3/uL (3.5-10.8)
[2019-05-19 20:41] LABS: Albumin 3.8 g/dL (3.2-5.2); Albumin/Globulin Ratio 1.4 (1-3); BUN/Creatinine Ratio 28.8 (8-20); Calcium 9.4 mg/dL (8.6-10.3); EGFR African American 117.5 (>60); EGFR Non-African American 97.1 (>60); Globulin 2.8 g/dL (2-4); Magnesium 1.4 mg/dL (1.9-2.7); Potassium 4.7 mmol/L (3.5-5.0); Total Bilirubin 0.3 mg/dL (0.2-1.0); Total Protein 6.6 g/dL (6.4-8.9); Troponin I 0.02 ng/mL (<0.03)
[2019-05-19] MEDS ORDERED: Magnesium Sulf 4 GM/100 ML IV* 4,000 MG/100 ML BAG IVPB ONE (20:44)
[2019-05-19 20:59] LABS: TSH (Thyroid Stimulating Horm) 3.94 mcIU/mL (0.34-5.60)
[2019-05-19] MEDS ORDERED: NS 0.9% 500 ML* 500 ML IV SCH (21:00)
[2019-05-20] LABS: Urine Appearance Cloudy; Urine Bilirubin Negative (Negative); Urine Blood Negative (Negative); Urine Color Yellow; Urine Glucose Negative (Negative); Urine Ketones Negative (Negative); Urine Nitrite Negative (Negative); Urine Protein Negative (Negative); Urine Specific Gravity 1.011 (1.010-1.030); Urine Urobilinogen Negative (Negative)
[2019-05-20 00:09] LABS: Urine Bacteria 1+ (Absent); Urine Red Blood Cell Trace(0-2/hpf) (Absent); Urine Squamous Epithelial Cell Present (Absent); Urine White Blood Cell 2+(11-20/hpf) (Absent)
[2019-05-20] MEDS ORDERED: Cephalexin CAP* 500 MG PO ONE (00:13)
[2019-05-20 00:51] VITALS: BP 143/73
--- NOTE | 2019-05-22 05:43 | ED ---
Imaging and Labs Follow Up Follow Up Type: Labs/Cultures Labs/Culture Result: Urine culture preliminary shows greater than 100,000 enterococcus faecalis. Urinalysis appears to be contaminated and the patient complains of no complaints. Nothing further at this time patient does not require treatment. Patient Communication/Plan: Nothing further at this time patient does not require treatment, urine sample appears contaminated. Provider Diagnoses: Hypomagnesemia, UTI (urinary tract infection)
== END 2019-05-20 00:35 | disposition home or self-care (01) ==
LOC: ED 19:12
DX: E83.42 Hypomagnesemia (principal); N39.0 Urinary tract infection, site not specified; E07.9 Disorder of thyroid, unspecified; I11.0 Hypertensive heart disease with heart failure; I50.9 Heart failure, unspecified; E78.00 Pure hypercholesterolemia, unspecified; J44.9 Chronic obstructive pulmonary disease, unspecified; K21.9 Gastro-esophageal reflux disease without esophagitis; Z85.118 Personal history of other malignant neoplasm of bronchus and lung; Z96.653 Presence of artificial knee joint, bilateral; Z87.891 Personal history of nicotine dependence; Z79.82 Long term (current) use of aspirin; Z79.899 Other long term (current) drug therapy; Z91.040 Latex allergy status
CPT/HCPCS: 36415; 71046; 80053; 81003; 81015; 83690; 83735; 84443; 84484; 85025; 87086; 93005; 96374; 99283; A9270-GY; J3475

== ENCOUNTER 2019-06-24 11:04 | Emergency (ER) | payer MEDICARE, BC ==
[2019-06-24 12:10] VITALS: BP 186/90
--- NOTE | 2019-06-24 12:15 | UC ---
UC General HPI - HPI Summary HPI Summary: RN healed skin tear on right lower leg now red and inflammed Pleasant 84 yo female c/o R lat calf wound. Has been present for at least several days, but is concerned today d/t increased redness and periwound inflammation. No purulence. No new calf pain / swelling. No fever / chills. No new sob /cp. Seen in the wound clinic a few years ago, but for a different wound. Does not use compression. Is able to elevate leg, limited d/t back pain. Does have pain in leg (not sure if R or L or both) at night, but doesn't think it wakes her up at night. - History of Current Complaint Chief Complaint: UCLowerExtremity Stated Complaint: WOUND ON LEG Time Seen by Provider: 06/24/19 12:14 Hx Obtained From: Patient Pain Intensity: 0 - Allergy/Home Medications Allergies/Adverse Reactions: Allergies Allergy/AdvReac Type Severity Reaction Status Date / Time latex Allergy Rash Verified 06/24/19 12:11 tape-latex Allergy Mild Rash Uncoded 06/24/19 12:11 PMH/Surg Hx/FS Hx/Imm Hx Previously Healthy: No - see pmh Other History Of: Anticoagulant Therapy - asa 81 mg - Surgical History Surgical History: Yes Surgery Procedure, Year, and Place: BILATERAL LOWER LUNG LOBECTOMY. BILAT TOTAL KNEE REPLACEMENTS. TONSILS. REPAIR PROLAPSED BLADDER. BILATERAL CATARACTS. TORN RETINA IN BILATERAL EYES REPAIR-NO OP REPORT WILL CLEAR WITH ORBIT DX PER DR MOLINA - Family History Known Family History: Positive: Cardiac Disease, Hypertension, Other - Mother - stroke Family History: Mother - stroke - Social History Alcohol Use: None Alcohol Amount: smells of alcohol Substance Use Type: None Smoking Status (MU): Former Smoker Type: Cigarettes Household Exposure Type: Cigarettes - Immunization History Most Recent Influenza Vaccination: Fall 2017 Most Recent Tetanus Shot: 12/21/15 Most Recent Pneumonia Vaccination: 2016 Review of Systems All Other Systems Reviewed And Are Negative: Yes Constitutional: Positive: Fatigue Skin: Positive: Other - see hpi Eyes: Positive: Negative - no new issues ENT: Positive: Negative - no new issues Respiratory: Positive: Negative - no new issues Cardiovascular: Positive: Negative - no new issues Gastrointestinal: Positive: Negative - no new issues Genitourinary: Positive: Negative - no new issues Motor: Positive: Other - see hpi Neurovascular: Positive: Negative - no new issues Musculoskeletal: Positive: Edema, Other: - see hpi Neurological: Positive: Negative - no new issues Psychological: Positive: Negative Is Patient Immunocompromised?: No Physical Exam Triage Information Reviewed: Yes Appearance: Well-Nourished - sitting up, conversing easily, nad Vital Signs: Initial Vital Signs Temp 98 F 06/24/19 12:06 Pulse 75 06/24/19 12:06 Resp 20 06/24/19 12:06 BP 186/90 06/24/19 12:06 Pulse Ox 95 06/24/19 12:06 Vital Signs Reviewed: Yes Eye Exam: Normal - grossly nad ENT Exam: Normal - grossly nad Neck exam: Other - kyphotic but no pain c/o's Respiratory Exam: Normal - RR normal, no dyspnea, no tachypnea Cardiovascular Exam: Normal - HR normal, nondiaphoretic. See RLE re pulses Abdominal Exam: Normal - benign, soft Musculoskeletal Exam: Other - BLE + evidence of chronic venous insuff changes / lymphedema + venous varicosities, + scattered hemosiderosis, + prior scarring. R lat calf with triangular shaped ulcer, black color. Appear c/w with prior skin tear. Denies tenderness, no fluctuance. Evidence of small serous drainage (dried) but no drainage now. + periulcer increased redness, slight warm to touch. Not hot. No yary homans'. Foot warm to touch. DP faint but palbable. PT not palpable. Neurological Exam: Normal - grossly nonfocal, detailed exam not done Psychological Exam: Normal - nad Skin Exam: Normal - see RLE site. Nondiaphoretic. Course/Dx - Course Course Of Treatment: 186/90 bp, reviewed need for f/u per meaningful use requirements with pt and daughter. Ms. Francisco has a nonhealing sore, black in color, c/w with an ulcer. 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 Is able to elevate her leg periodically. Will f/u PCP for recheck. Will start mupirocin topical, and ceftin in the meantime. Should go to ED if worse or new problems. Likely will benefit from compression, will check with PCP. She will consider f/u Wound Clinic as well, but will check with PCP. Reviewed coa / tx plan with pt and daughter. Questions as posed answered to the best of my ability. - Diagnoses Provider Diagnosis: Ulcer of right lower leg Discharge ED - Sign-Out/Discharge Documenting (check all that apply): Patient Departure All imaging exams completed and their final reports reviewed: No Studies - Discharge Plan Condition: Stable Disposition: HOME Prescriptions: ceFUROXime 250 MG TAB [Ceftin TAB 250 MG(*)] 250 mg PO BID 7 Days #14 tab Patient Education Materials: Chronic Wound Care (ED) Referrals: Eri Hankins MD [Primary Care Provider] - Additional Instructions: Follow up with your primary care physician, call today for appointment in the next week if possible. Please go to the Emergency Department for worse or new problems in the meantime. Consider following up with the Wound Clinic, but check with your primary care physician first. Dressing - mupirocin thin layer, gauze / roll gauze (or tall sock). Once daily. No astringents. - Billing Disposition and Condition Condition: STABLE Disposition: Home
[2019-06-24] MEDS ORDERED: Mupirocin 2% OINT* TUBE TOPICAL ONE (12:50)
== END 2019-06-24 13:25 | disposition home or self-care (01) ==
LOC: UCEAST 11:04
DX: L97.219 Non-pressure chronic ulcer of right calf with unspecified severity (principal); I83.012 Varicose veins of right lower extremity with ulcer of calf; R53.83 Other fatigue; Z87.891 Personal history of nicotine dependence; Z91.040 Latex allergy status; Z91.09 Other allergy status, other than to drugs and biological substances
CPT/HCPCS: 99212; G0463

== ENCOUNTER 2023-01-24 18:36 | Inpatient (IN) ==
[2023-01-24] MEDS ORDERED: Iodixanol (CONTRAST) 320 MG/ML 100 ML SDV IV ONE ×2 (18:55→20:35)
[2023-01-24 18:57] LABS: ABS Eosinophils 0.1 10^3/uL (0.0-0.5); ABS Lymphocytes 0.7 10^3/uL (1.0-4.8); ABS Monocytes 0.4 10^3/uL (0.0-0.9); ABS Neutrophils 4.4 10^3/uL (1.5-7.6); Hemoglobin 11.8 g/dL (11.5-14.3); Lymphocyte % 12.4 %; Mean Corpuscular Hemoglobin 31.1 pg (27-33); Mean Corpuscular Hgb Conc 33.9 g/dL (31-36); Mean Corpuscular Volume 91.9 fL (80-97); Mean Platelet Volume 7.6 fL (7.5-11.2); Nucleated Red Blood Cells % 0.1 /100 WBC (0.0-0.4); Platelet Count 202 10^3/uL (150-450); Red Blood Count 3.81 10^6/uL (3.63-4.92); Red Cell Distribution Width 16.2 % (12-17); White Blood Count 5.6 10^3/uL (3.8-11.8)
[2023-01-24 19:09] LABS: Activated Partial Thrombo Time 28.1 seconds (26.0-38.0); Albumin 3.6 g/dL (3.2-5.2); Anion Gap 6 mmol/L (2-16); CO2 Carbon Dioxide 32 mmol/L (22-32); Calcium 9.5 mg/dL (8.6-10.3); Chloride 97 mmol/L (101-111); INR 0.95 (0.83-1.13); Potassium 4.5 mmol/L (3.5-5.0); Sodium 135 mmol/L (135-145)
[2023-01-24 19:15] LABS: ALT 10 U/L (7-52); AST 17 U/L (13-39); Albumin/Globulin Ratio 1.1 (1-3); Alkaline Phosphatase 94 U/L (35-149); Blood Urea Nitrogen 42 mg/dL (6-24); Cholesterol 138 mg/dL; Creatinine, Serum 0.94 mg/dL (0.51-0.95); Globulin 3.3 g/dL (2-4); Glucose 90 mg/dL (70-100); HDL Cholesterol 53.7 mg/dL; LDL Cholesterol 71 mg/dL; Total Protein 6.9 g/dL (6.4-8.9); Triglycerides 69 mg/dL; eGFR CKD-EPI 58.7 (>60)
[2023-01-24] MEDS ORDERED: Heparin DRIP 25,000 UNITS BAG 25,000 UNITS/500 ML BAG IV SCH (21:45)
[2023-01-24] MEDS ORDERED: Heparin 5000 UNITS/ML 1 mL VIAL IV SCH (22:00)
[2023-01-24 22:12] LABS: ABS Eosinophils 0.1 10^3/uL (0.0-0.5); ABS Lymphocytes 0.7 10^3/uL (1.0-4.8); ABS Monocytes 0.3 10^3/uL (0.0-0.9); ABS Neutrophils 4.1 10^3/uL (1.5-7.6); Hematocrit 33.1 % (35-45); Hemoglobin 11.3 g/dL (11.5-14.3); Lymphocyte % 12.9 %; Mean Corpuscular Hemoglobin 31.3 pg (27-33); Mean Corpuscular Hgb Conc 34.1 g/dL (31-36); Mean Corpuscular Volume 91.8 fL (80-97); Mean Platelet Volume 7.4 fL (7.5-11.2); Nucleated Red Blood Cells % 0.1 /100 WBC (0.0-0.4); Platelet Count 182 10^3/uL (150-450); Red Cell Distribution Width 16.4 % (12-17); White Blood Count 5.2 10^3/uL (3.8-11.8)
[2023-01-24 22:25] LABS: Urine Appearance Turbid; Urine Bilirubin Negative (Negative); Urine Blood 1+ (Negative); Urine Color Yellow; Urine Glucose Negative (Negative); Urine Ketones Negative (Negative); Urine Nitrite Negative (Negative); Urine Protein 1+(30 mg/dL) (Negative); Urine Specific Gravity 1.046 (1.002-1.030); Urine Urobilinogen Negative (Negative)
[2023-01-24 22:34] LABS: Creatinine, Serum 0.8 mg/dL (0.51-0.95); eGFR CKD-EPI 71.3 (>60)
[2023-01-24 22:39] LABS: Urine Bacteria 1+ (Absent); Urine Red Blood Cell 1+(3-5/hpf) (Absent); Urine Squamous Epithelial Cell Present (Absent); Urine White Blood Cell 3+(>20/hpf) (Absent)
[2023-01-24] MEDS ORDERED: cefTRIAXone 1 gm/50 mL D5W 1 GM/50 ML BAG IV ONE (22:48)
[2023-01-25 00:02] LABS: Magnesium 1.5 mg/dL (1.9-2.7)
[2023-01-25] MEDS ORDERED: Magnesium Sulf 4 GM/100 ML IV 4,000 MG/100 ML BAG IVPB ONE (00:21)
[2023-01-25 04:28] LABS: ABS Eosinophils 0.1 10^3/uL (0.0-0.5); ABS Lymphocytes 0.7 10^3/uL (1.0-4.8); ABS Monocytes 0.4 10^3/uL (0.0-0.9); ABS Neutrophils 5.1 10^3/uL (1.5-7.6); Hematocrit 32.5 % (35-45); Hemoglobin 11.1 g/dL (11.5-14.3); Lymphocyte % 10.7 %; Mean Corpuscular Hemoglobin 31.2 pg (27-33); Mean Corpuscular Hgb Conc 34.3 g/dL (31-36); Mean Platelet Volume 7.5 fL (7.5-11.2); Platelet Count 185 10^3/uL (150-450); Red Blood Count 3.57 10^6/uL (3.63-4.92); Red Cell Distribution Width 15.8 % (12-17); White Blood Count 6.3 10^3/uL (3.8-11.8)
[2023-01-25 04:49] LABS: Calcium 9.5 mg/dL (8.6-10.3); Creatinine, Serum 0.68 mg/dL (0.51-0.95); Magnesium 2.6 mg/dL (1.9-2.7); eGFR CKD-EPI 84.2 (>60)
[2023-01-25] MEDS ORDERED: Levothyroxine 100 MCG/5 ML VIAL IV SCH (06:00)
[2023-01-25] MEDS ORDERED: NS 0.9% 1000 ml BAG 1,000 ML IV SCH (09:00)
[2023-01-25] MEDS ORDERED: Azithromycin 500 mg/250 ml NS 500 MG/250 ML BAG IVPB SCH (12:00)
[2023-01-25 13:01] LABS: C Reactive Protein 1.5 mg/L (<8.01)
[2023-01-25] MEDS ORDERED: Albuterol HFA INHALER 8 gm MDI INH PRN (15:54)
[2023-01-25] MEDS ORDERED: Albuterol/Ipratropium NEB.SOL (2.5/0.5 MG) 3 ML NEB.SOLN ONE (18:53)
[2023-01-25] MEDS ORDERED: Albuterol/Ipratropium NEB.SOL (2.5/0.5 MG) 3 ML NEB.SOLN INH PRN (18:54)
[2023-01-25] MEDS ORDERED: Morphine 2 MG/ML SYRINGE IV PRN (20:06)
[2023-01-25] MEDS ORDERED: Morphine 2 MG/ML SYRINGE ONE (20:08)
[2023-01-25] MEDS ORDERED: Albuterol/Ipratropium NEB.SOL (2.5/0.5 MG) 3 ML NEB.SOLN INH ONE (20:11)
[2023-01-25] MEDS ORDERED: Lorazepam PYXIS KEY PRN (20:30)
[2023-01-25] MEDS ORDERED: LORazepam 2 mg VIAL 1 ml IV PUSH ONE (20:30)
[2023-01-25] MEDS ORDERED: Morphine 2 MG/ML SYRINGE IV ONE (20:30)
[2023-01-25] MEDS ORDERED: LORazepam 2 mg VIAL 1 ml ONE (20:32)
[2023-01-25] MEDS: Morphine 2 MG/ML SYRINGE IV PRN ×2 (20:35→20:55)
[2023-01-25] MEDS ORDERED: cefTRIAXone 1 gm/50 mL D5W 1 GM/50 ML BAG IV SCH (21:00)
[2023-01-25 21:25] VITALS: BP 152/83
[2023-01-26] MEDS ORDERED: Pantoprazole VIAL 40 MG VIAL IV SCH (09:00)
[2023-01-26] MEDS ORDERED: Aspirin EC 81 mg TAB.EC (enteric coated) PO SCH (09:00)
[2023-01-26] MEDS ORDERED: Azithromycin 500 mg/250 ml NS 500 MG/250 ML BAG IVPB SCH (12:00)
== END 2023-01-25 21:00 | disposition expired | DRG 175 ==
LOC: ED 18:36 → EDHOLD 18:36 → SUATTDRO 23:19 → MEDTELE 01-25 00:52 → ICU 01-25 19:53
PROVIDERS: ADMIT Student in an Organized Health Care Education/Training Program; ATTEND Internal Medicine